=== PATIENT | female | born 1945 | race Caucasian/White ===

== ENCOUNTER → 2017-10-13 | Outpatient (REF) | payer MEDICARE ==
[2017-10-13 11:26] LABS: HEMATOCRIT 39.9 % (36.0-47.0); MEAN CORPUSCULAR HEMOGLOBIN 28.6 pg (27.0-33.0); MEAN CORPUSCULAR HGB CONC 32.6 g/dl (32.0-36.5); MEAN CORPUSCULAR VOLUME 87.7 fl (80.0-96.0); PLATELET COUNT, AUTOMATED 221 10^3/uL (150-450); RED BLOOD COUNT 4.55 10^6/uL (4.00-5.40); WHITE BLOOD COUNT 12.2 10^3/uL (4.0-10.0)
[2017-10-13 12:07] LABS: TOTAL 25(OH) VITAMIN D 12.9 NG/ML (30.0-100.0)
[2017-10-13 12:19] LABS: ALBUMIN 3.2 GM/DL (3.2-5.2); ALBUMIN/GLOBULIN RATIO 0.86 (1.00-1.93); ALKALINE PHOSPHATASE 134 U/L (45-117); ALT/SGPT 18 U/L (12-78); ANION GAP 8 MEQ/L (8-16); AST/SGOT 11 U/L (7-37); BILIRUBIN,TOTAL 0.6 MG/DL (0.2-1.0); BLOOD UREA NITROGEN 16 MG/DL (7-18); CALCIUM LEVEL 9.5 MG/DL (8.8-10.2); CARBON DIOXIDE LEVEL 29 MEQ/L (21-32); CHLORIDE LEVEL 106 MEQ/L (98-107); CHOLESTEROL LEVEL 309 MG/DL (<200); CHOLESTEROL RISK RATIO 6.437 (<5); CREATININE FOR GFR 0.79 MG/DL (0.55-1.02); GLOMERULAR FILTRATION RATE > 60.0 (>39); GLUCOSE, FASTING 154 MG/DL (83-110); HDL CHOLESTEROL 48 MG/DL (>40); LDL CHOLESTEROL 222.2 MG/DL (<100); NON-HDL-C 261 MG/DL; POTASSIUM SERUM 4.2 MEQ/L (3.5-5.1); SODIUM LEVEL 143 MEQ/L (136-145); TOTAL PROTEIN 6.9 GM/DL (6.4-8.2); TRIGLYCERIDES LEVEL 194 MG/DL (<150)
[2017-10-13 12:37] LABS: ESTIMATED AVERAGE GLUCOSE 154 MG/DL (60-110)
[2017-10-13 12:54] LABS: MAU/CREAT RATIO 3821.9 MCG/MG (0.0-30.0)
== END ==
LOC: M SFHCLERA 09:57
DX: I10 Essential (primary) hypertension (principal); E11.65 Type 2 diabetes mellitus with hyperglycemia; E78.2 Mixed hyperlipidemia; E55.9 Vitamin D deficiency, unspecified; Z23 Encounter for immunization
CPT/HCPCS: 80053

== ENCOUNTER → 2018-01-28 | Outpatient (REF) | payer MEDICARE | LOC: M LAB REF 15:31 | DX: D23.71 Other benign neoplasm of skin of right lower limb, including hip (principal); I10 Essential (primary) hypertension; E11.65 Type 2 diabetes mellitus with hyperglycemia; E78.2 Mixed hyperlipidemia; E55.9 Vitamin D deficiency, unspecified; M10.9 Gout, unspecified; Z51.81 Encounter for therapeutic drug level monitoring; Z79.899 Other long term (current) drug therapy | CPT/HCPCS: 84550; 88304 ==

== ENCOUNTER → 2018-01-28 | Outpatient (REF) | payer MEDICARE ==
[2018-01-28 12:48] LABS: ESTIMATED AVERAGE GLUCOSE 148 MG/DL (60-110); HEMOGLOBIN A1c 6.8 %
[2018-01-28 12:50] LABS: TOTAL 25(OH) VITAMIN D 29.1 NG/ML (30.0-100.0)
[2018-01-28 13:00] LABS: ALBUMIN 3.4 GM/DL (3.2-5.2); ALBUMIN/GLOBULIN RATIO 0.92 (1.00-1.93); ALKALINE PHOSPHATASE 109 U/L (45-117); ALT/SGPT 23 U/L (12-78); ANION GAP 8 MEQ/L (8-16); AST/SGOT 18 U/L (7-37); BILIRUBIN,TOTAL 0.3 MG/DL (0.2-1.0); BLOOD UREA NITROGEN 15 MG/DL (7-18); CALCIUM LEVEL 9.1 MG/DL (8.8-10.2); CARBON DIOXIDE LEVEL 30 MEQ/L (21-32); CHLORIDE LEVEL 106 MEQ/L (98-107); CHOLESTEROL LEVEL 284 MG/DL (<200); CREATININE FOR GFR 0.84 MG/DL (0.55-1.30); GLOMERULAR FILTRATION RATE > 60.0 (>39); GLUCOSE, FASTING 96 MG/DL (70-100); HDL CHOLESTEROL 40 MG/DL (>40); LDL CHOLESTEROL 197.8 MG/DL (<100); NON-HDL-C 244 MG/DL; POTASSIUM SERUM 3.9 MEQ/L (3.5-5.1); SODIUM LEVEL 144 MEQ/L (136-145); TOTAL PROTEIN 7.1 GM/DL (6.4-8.2); TRIGLYCERIDES LEVEL 231 MG/DL (<150); URIC ACID 6.4 MG/DL (2.6-6.0)
== END ==
LOC: M SFHCLERA 09:00
DX: I10 Essential (primary) hypertension (principal); E11.65 Type 2 diabetes mellitus with hyperglycemia; E78.2 Mixed hyperlipidemia; E55.9 Vitamin D deficiency, unspecified; M10.9 Gout, unspecified; Z79.899 Other long term (current) drug therapy
CPT/HCPCS: 84550

== ENCOUNTER 2018-01-29 02:31 | Emergency (ER) | payer MEDICARE ==
[2018-01-29] MEDS: SILVER NITRATE APPLICATOR TOP (04:30)
[2018-01-29] MEDS: LIDOCAINE W/EPINEPHRINE 1% 20ML VIAL SC (04:30)
== END 2018-01-29 05:06 | disposition home or self-care (01) ==
LOC: M ED 02:31
DX: L76.22 Postprocedural hemorrhage of skin and subcutaneous tissue following other procedure (principal); I10 Essential (primary) hypertension; F33.9 Major depressive disorder, recurrent, unspecified; Z79.82 Long term (current) use of aspirin; Z79.84 Long term (current) use of oral hypoglycemic drugs
CPT/HCPCS: 12001

== ENCOUNTER 2018-03-31 09:57 | Emergency (ER) | payer MEDICARE ==
[2018-03-31 10:51] LABS: AMORPHOUS SEDIMENT RFX SMALL (NEGATIVE); KETONE, URINE AUTO RFX NEGATIVE (NEGATIVE); LEUKOCYTE ESTERASE UR AUTO RFX NEGATIVE (NEGATIVE); MUCUS, URINE RFX SMALL (NEGATIVE); NITRITE, URINE AUTO RFX POSITIVE (NEGATIVE); RBC, URINE AUTO RFX 3 /HPF (0-3); SPECIFIC GRAVITY UR AUTO RFX 1.024 (1.002-1.035); SQUAM EPITHELIAL CELL UR AURFX 2 /HPF (0-6); WBC, URINE AUTO RFX 34 /HPF (0-3)
[2018-03-31] MEDS: CIPROFLOXACIN 500 MG TAB PO (11:28)
[2018-03-31] MEDS: PHENAZOPYRIDINE 100 MG TAB PO (11:28)
[2018-03-31] MEDS: ACETAMINOPHEN 325 MG TAB PO (11:28)
[2018-03-31 11:38] LABS: BASO % 0.3 % (0.0-1.0); EOS # 0.2 10^3/uL (0.0-0.50); EOS % 1.5 % (0.0-3.0); HEMATOCRIT 38.5 % (36.0-47.0); HEMOGLOBIN 12.8 g/dl (12.0-15.5); IMMATURE GRANULOCYTE % 0.7 % (0-3.0); LYMPH # 2.8 10^3/uL (1.5-4.5); LYMPH % 25.4 % (24.0-44.0); MEAN CORPUSCULAR HEMOGLOBIN 28.7 pg (27.0-33.0); MEAN CORPUSCULAR HGB CONC 33.2 g/dl (32.0-36.5); MEAN CORPUSCULAR VOLUME 86.3 fl (80.0-96.0); MONO # 0.6 10^3/uL (0.0-0.8); MONO % 5.8 % (0.0-5.0); NEUTROPHILS # 7.3 10^3/uL (1.8-7.7); NEUTROPHILS % 66.3 % (36.0-66.0); PLATELET COUNT, AUTOMATED 223 10^3/uL (150-450); RED BLOOD COUNT 4.46 10^6/uL (4.00-5.40); RED CELL DISTRIBUTION WIDTH 14.5 % (11.5-14.5)
[2018-03-31 12:03] LABS: ANION GAP 8 MEQ/L (8-16); BLOOD UREA NITROGEN 19 MG/DL (7-18); CALCIUM LEVEL 9.2 MG/DL (8.8-10.2); CARBON DIOXIDE LEVEL 27 MEQ/L (21-32); CHLORIDE LEVEL 108 MEQ/L (98-107); CREATININE FOR GFR 0.89 MG/DL (0.55-1.30); GLOMERULAR FILTRATION RATE > 60.0 (>39); GLUCOSE, FASTING 147 MG/DL (70-100); SODIUM LEVEL 143 MEQ/L (136-145)
== END 2018-03-31 12:44 | disposition home or self-care (01) ==
LOC: M ED 09:57
DX: N30.00 Acute cystitis without hematuria (principal); N10 Acute pyelonephritis; I25.10 Atherosclerotic heart disease of native coronary artery without angina pectoris; I11.9 Hypertensive heart disease without heart failure; I25.2 Old myocardial infarction; E78.9 Disorder of lipoprotein metabolism, unspecified; E11.9 Type 2 diabetes mellitus without complications; Z95.5 Presence of coronary angioplasty implant and graft; Z95.1 Presence of aortocoronary bypass graft; Z79.899 Other long term (current) drug therapy; Z79.84 Long term (current) use of oral hypoglycemic drugs; Z79.82 Long term (current) use of aspirin
CPT/HCPCS: 74176

== ENCOUNTER 2018-04-02 07:31 | Emergency (ER) | payer MEDICARE | END 2018-04-02 08:56 | disposition home or self-care (01) | LOC: M ED 07:31 | DX: I10 Essential (primary) hypertension (principal); N39.0 Urinary tract infection, site not specified; K59.00 Constipation, unspecified; E11.9 Type 2 diabetes mellitus without complications; F33.9 Major depressive disorder, recurrent, unspecified | CPT/HCPCS: 99283 ==

== ENCOUNTER 2018-05-22 09:24 | Emergency (ER) | payer MEDICARE ==
[2018-05-22] MEDS: NS 500 ML IV (10:08)
[2018-05-22] MEDS: KETOROLAC 30 MG/ML VIAL (J1885) IV (10:09)
[2018-05-22] MEDS: GASTROGRAFIN SOLUTION 30ML PO ×2 (10:09→10:10)
[2018-05-22 10:10] LABS: KETONE, URINE AUTO RFX NEGATIVE (NEGATIVE); NITRITE, URINE AUTO RFX NEGATIVE (NEGATIVE); RBC, URINE AUTO RFX 1 /HPF (0-3); SQUAM EPITHELIAL CELL UR AURFX 4 /HPF (0-6)
[2018-05-22 10:11] LABS: BASO % 0.1 % (0.0-1.0); EOS # 0.1 10^3/uL (0.0-0.50); EOS % 0.4 % (0.0-3.0); HEMATOCRIT 36.3 % (36.0-47.0); HEMOGLOBIN 12.1 g/dl (12.0-15.5); IMMATURE GRANULOCYTE % 0.5 % (0-3.0); LYMPH # 1.5 10^3/uL (1.5-4.5); LYMPH % 9.4 % (24.0-44.0); MEAN CORPUSCULAR HEMOGLOBIN 28.5 pg (27.0-33.0); MEAN CORPUSCULAR HGB CONC 33.3 g/dl (32.0-36.5); MEAN CORPUSCULAR VOLUME 85.6 fl (80.0-96.0); MONO % 6.5 % (0.0-5.0); NEUTROPHILS # 13.2 10^3/uL (1.8-7.7); NEUTROPHILS % 83.1 % (36.0-66.0); PLATELET COUNT, AUTOMATED 211 10^3/uL (150-450); RED BLOOD COUNT 4.24 10^6/uL (4.00-5.40); RED CELL DISTRIBUTION WIDTH 14.5 % (11.5-14.5); WHITE BLOOD COUNT 15.9 10^3/uL (4.0-10.0)
[2018-05-22 10:30] LABS: LEUKOCYTE ESTERASE UR AUTO RFX 1+ (NEGATIVE); WBC, URINE AUTO RFX 38 /HPF (0-3)
[2018-05-22 10:46] LABS: LACTIC ACID SEPSIS PROTOCOL 0.7 MMOL/L (0.4-2.0)
[2018-05-22 10:47] LABS: ALBUMIN 3.3 GM/DL (3.2-5.2); ALKALINE PHOSPHATASE 99 U/L (45-117); ALT/SGPT 18 U/L (12-78); ANION GAP 8 MEQ/L (8-16); AST/SGOT 10 U/L (7-37); BILIRUBIN,TOTAL 0.7 MG/DL (0.2-1.0); BLOOD UREA NITROGEN 17 MG/DL (7-18); CALCIUM LEVEL 9.2 MG/DL (8.8-10.2); CARBON DIOXIDE LEVEL 26 MEQ/L (21-32); CHLORIDE LEVEL 106 MEQ/L (98-107); CREATININE FOR GFR 0.94 MG/DL (0.55-1.30); GLOMERULAR FILTRATION RATE > 60.0 (>39); GLUCOSE, FASTING 162 MG/DL (70-100); LIPASE 148 U/L (73-393); POTASSIUM SERUM 3.7 MEQ/L (3.5-5.1); SODIUM LEVEL 140 MEQ/L (136-145); TOTAL PROTEIN 7.4 GM/DL (6.4-8.2)
[2018-05-22] MEDS ORDERED: ISOVUE-370 76% 100ML VIAL (Q9967) As Ordered (11:17)
== END 2018-05-22 12:24 | disposition home or self-care (01) ==
LOC: M ED 09:24
DX: K57.32 Diverticulitis of large intestine without perforation or abscess without bleeding (principal); N39.0 Urinary tract infection, site not specified; E11.9 Type 2 diabetes mellitus without complications; I10 Essential (primary) hypertension; F33.9 Major depressive disorder, recurrent, unspecified; Z87.440 Personal history of urinary (tract) infections; Z95.5 Presence of coronary angioplasty implant and graft; Z90.89 Acquired absence of other organs; Z79.899 Other long term (current) drug therapy; Z79.82 Long term (current) use of aspirin; Z79.84 Long term (current) use of oral hypoglycemic drugs
CPT/HCPCS: Q9963

== ENCOUNTER → 2018-10-14 | Outpatient (CLI) | payer MEDICARE ==
[~2018-10-14] MED LIST: ACET30TAB PO; AMLO5TAB6 PO; ASPI81TA85 PO; CIPR-249 PO; ENAL20TA PO; FLAG500T PO; METF500T4 PO; METO25TA4 PO; MIRA3350 PO; PYRI1TAB5 PO; SERT-155 PO; VITA-112 PO; VITA50005 PO
[2018-10-14 13:40] LABS: BASO % 0.3 % (0.0-1.0); EOS # 0.2 10^3/uL (0.0-0.50); EOS % 1.6 % (0.0-3.0); HEMATOCRIT 38.4 % (36.0-47.0); HEMOGLOBIN 12.4 g/dl (12.0-15.5); LYMPH # 2.8 10^3/uL (1.5-4.5); LYMPH % 26.8 % (24.0-44.0); MEAN CORPUSCULAR HEMOGLOBIN 28.2 pg (27.0-33.0); MEAN CORPUSCULAR HGB CONC 32.3 g/dl (32.0-36.5); MEAN CORPUSCULAR VOLUME 87.5 fl (80.0-96.0); MONO # 0.6 10^3/uL (0.0-0.8); MONO % 5.9 % (0.0-5.0); NEUTROPHILS # 6.8 10^3/uL (1.8-7.7); NEUTROPHILS % 64.9 % (36.0-66.0); PLATELET COUNT, AUTOMATED 181 10^3/uL (150-450); RED BLOOD COUNT 4.39 10^6/uL (4.00-5.40); WHITE BLOOD COUNT 10.4 10^3/uL (4.0-10.0)
[2018-10-14 14:08] LABS: ALBUMIN 3.2 GM/DL (3.2-5.2); BILIRUBIN,TOTAL 0.3 MG/DL (0.2-1.0); CALCIUM LEVEL 8.9 MG/DL (8.8-10.2); CHOLESTEROL RISK RATIO 7.23 (<5); CREATININE FOR GFR 1.01 MG/DL (0.55-1.30); POTASSIUM SERUM 4.2 MEQ/L (3.5-5.1); TOTAL PROTEIN 6.3 GM/DL (6.4-8.2)
[2018-10-14 15:02] LABS: HEMOGLOBIN A1c 7.9 %
== END ==
LOC: M WUC 09:14
PROVIDERS: ATTEND Physician Assistant
DX: E78.2 Mixed hyperlipidemia (principal); I10 Essential (primary) hypertension; E11.65 Type 2 diabetes mellitus with hyperglycemia; E55.9 Vitamin D deficiency, unspecified; Z79.899 Other long term (current) drug therapy

== ENCOUNTER → 2019-02-17 | Outpatient (CLI) | payer MEDICARE ==
[~2019-02-17] MED LIST changes: +ACET-716 PO; -ACET30TAB PO
[2019-02-17 12:45] LABS: HEMATOCRIT 40.2 % (36.0-47.0); HEMOGLOBIN 12.8 g/dl (12.0-15.5); MEAN CORPUSCULAR HEMOGLOBIN 28.6 pg (27.0-33.0); MEAN CORPUSCULAR HGB CONC 31.8 g/dl (32.0-36.5); MEAN CORPUSCULAR VOLUME 89.7 fl (80.0-96.0); PLATELET COUNT, AUTOMATED 231 10^3/uL (150-450); RED BLOOD COUNT 4.48 10^6/uL (4.00-5.40); WHITE BLOOD COUNT 11.1 10^3/uL (4.0-10.0)
[2019-02-17 12:56] LABS: ALBUMIN 3.9 GM/DL (3.2-5.2); BILIRUBIN,TOTAL 0.4 MG/DL (0.2-1.0); CALCIUM LEVEL 10.1 MG/DL (8.8-10.2); CHOLESTEROL RISK RATIO 5.477 (<5); CREATININE FOR GFR 1.15 MG/DL (0.55-1.30); GLOMERULAR FILTRATION RATE 49.1 (>39); POTASSIUM SERUM 4.6 MEQ/L (3.5-5.1); THYROID STIMULATING HORMONE 2.25 uIU/ML (0.358-3.740); TOTAL 25(OH) VITAMIN D 46.6 NG/ML (30.0-100.0); TOTAL PROTEIN 6.9 GM/DL (6.4-8.2); URIC ACID 7.5 MG/DL (2.6-6.0)
[2019-02-17 13:44] LABS: HEMOGLOBIN A1c 6.3 %
[2019-02-17 13:51] LABS: MAU/CREAT RATIO 1769.7 MCG/MG (0.0-30.0)
== END ==
LOC: M WUC 09:27
PROVIDERS: ATTEND Internal Medicine
DX: E78.5 Hyperlipidemia, unspecified (principal); I10 Essential (primary) hypertension; E11.9 Type 2 diabetes mellitus without complications; F33.0 Major depressive disorder, recurrent, mild; M10.9 Gout, unspecified; E55.9 Vitamin D deficiency, unspecified; Z79.899 Other long term (current) drug therapy

== ENCOUNTER → 2019-03-02 | Outpatient (CLI) | payer MEDICARE ==
--- NOTE | 2019-03-02 09:16 | REPMRS ---
Patient History The patient states she has not had a clinical breast exam in over a year. Patient is postmenopausal. Family history of colorectal cancer at age 43 in son. Stereotactic core biopsy of the right breast, April 25, 2008. No Hormone Replacement Therapy 3D TOMOSYNTHESIS WAS PERFORMED. Digital Woman Screen Mammo: March 02, 2019 - Exam #: [id number] Bilateral CC and MLO view(s) were taken. Technologist: Tess Coon, Technologist Prior study comparison: January 29, 2009, right breast digital mammo diagnostic unilateral, performed at [facility]. March 24, 2008, bilateral screening mammogram performed at [facility]. FINDINGS: The breast tissue is heterogeneously dense. This may lower the sensitivity of mammography. There has been no change in the appearance of the mammogram from the prior studies. There is a moderate amount of residual fibroglandular tissue which is fairly symmetric. There is no interval development of dominant mass, areas of architectural distortion, or clustered microcalcification typical of malignancy. Assessment: BI-RADS/ACR category 1 mammogram. Negative Mammogram. Recommendation Routine screening mammogram in 1 year (for women over age 40). This mammogram was interpreted with the aid of an FDA-approved computer-aided dectection system. Electronically Signed By: Yevgeniy Del Rosario MD 03/02/19 0916
== END ==
LOC: M WHC 07:53
PROVIDERS: ATTEND Internal Medicine
DX: Z12.31 Encounter for screening mammogram for malignant neoplasm of breast (principal); Z78.0 Asymptomatic menopausal state; Z80.0 Family history of malignant neoplasm of digestive organs

== ENCOUNTER → 2019-05-23 | Outpatient (CLI) | payer MEDICARE ==
[2019-05-23 13:37] LABS: ALBUMIN 3.7 GM/DL (3.2-5.2); BILIRUBIN,TOTAL 0.4 MG/DL (0.2-1.0); CALCIUM LEVEL 9.8 MG/DL (8.8-10.2); CHOLESTEROL RISK RATIO 5.285 (<5); CREATININE FOR GFR 0.99 MG/DL (0.55-1.30); GLOMERULAR FILTRATION RATE 58.4 (>39); POTASSIUM SERUM 5.3 MEQ/L (3.5-5.1); TOTAL PROTEIN 6.9 GM/DL (6.4-8.2)
[2019-05-23 13:58] LABS: HEMOGLOBIN A1c 6.4 %
== END ==
LOC: M WUC 08:24
PROVIDERS: ATTEND Internal Medicine
DX: E78.5 Hyperlipidemia, unspecified (principal); I10 Essential (primary) hypertension; E11.9 Type 2 diabetes mellitus without complications

== ENCOUNTER → 2019-06-13 | Outpatient (REF) | payer MEDICARE ==
[~2019-06-13] MED LIST changes: +METF-791 PO; -METF500T4 PO
[2019-06-14 14:03] LABS: COMPLEMENT C3 120 MG/DL (90-180); COMPLEMENT C4 27 MG/DL (10-40); TOTAL PROTEIN 6.9 GM/DL (6.4-8.2)
[2019-06-14 14:14] LABS: HEPATITIS B SURFACE ANTIBODY NEGATIVE (POSITIVE)
[2019-06-14 14:18] LABS: URINE TOTAL PROTEIN 210.5 MG/DL (0-12)
[2019-06-14 14:24] LABS: HEPATITIS B SURFACE ANTIGEN NEGATIVE (NEGATIVE)
[2019-06-14 14:52] LABS: HEPATITIS C VIRUS ABY INDEX 0.1 INDEX (<0.8)
[2019-06-14 14:53] LABS: HEPATITIS B CORE ANTIBODY IGM NEGATIVE (NEGATIVE)
[2019-06-15 13:10] LABS: ALBUMIN 4.11 GM/DL (3.29-5.55); ALBUMIN % 59.6 % (55.8-66.1); ALPHA-1-GLOBULIN % 4.6 % (2.9-4.9); ALPHA-1-GLOBULINS 0.32 GM/DL (0.17-0.41); ALPHA-2-GLOBULINS 0.81 GM/DL (0.42-0.99); ALPHA-2-GLOBULINS % 11.7 % (7.1-11.8); BETA-1-GLOBULINS 0.45 GM/DL (0.28-0.60); BETA-1-GLOBULINS % 6.5 % (4.7-7.2); BETA-2-GLOBULINS % 4.3 % (3.2-6.5); GAMMA GLOBULIN % 13.3 % (11.1-18.8); GAMMA GLOBULINS 0.92 GM/DL (0.65-1.58)
[2019-06-15 13:52] LABS: UPEP INTERPRETATION NO M-SPIKE NOTED; URINE VOLUME RANDOM ML
[2019-06-19 14:39] LABS: ANCA-ATYPICAL <1:20 titer (Neg:<1:20); ANTI DOUBLE STRAND-DNA AB 1 IU/mL (0-9); ANTI DS-DNA AB <1:10 titer (.); ANTI-GLOMERULAR BASEMENT MEMB 3 units (0-20); ANTINUCLEAR ANTIBODIES DIRECT Positive (Negative); CYTOPLASMIC NEUTROP AB ANCA-C <1:20 titer (Neg:<1:20); Lyme Disease IgG Ab 18 kDa Ban Absent (.); Lyme Disease IgG Ab 23 kDa Ban Absent (.); Lyme Disease IgG Ab 28 kDa Ban Absent (.); Lyme Disease IgG Ab 30 kDa Ban Absent (.); Lyme Disease IgG Ab 39 kDa Ban Absent (.); Lyme Disease IgG Ab 41 kDa Ban Absent (.); Lyme Disease IgG Ab 45 kDa Ban Absent (.); Lyme Disease IgG Ab 58 kDa Ban Absent (.); Lyme Disease IgG Ab 66 kDa Ban Absent (.); Lyme Disease IgG Ab 93 kDa Ban Absent (.); Lyme Disease IgG West Blot Int Negative (.); Lyme Disease IgG/IgM Antibodie <0.91 ISR (0.00-0.90); Lyme Disease IgM Ab 23 kDa Ban Present (.); Lyme Disease IgM Ab 39 kDa Ban Absent (.); Lyme Disease IgM Ab 41 kDa Ban Absent (.); Lyme Disease IgM Ab Quantitati 0.85 index (0.00-0.79); Lyme Disease IgM West Blot Int Negative (.); PERINUCLEAR AB ANCA-P <1:20 titer (Neg:<1:20); RNP ANTIBODIES 0.2 AI (0.0-0.9); SJOGREN'S ANTI SS-A <0.2 AI (0.0-0.9); SJOGREN'S ANTI SS-B <0.2 AI (0.0-0.9); SMITH ANTIBODIES <0.2 AI (0.0-0.9)
== END ==
LOC: M LAB REF 13:01
PROVIDERS: ATTEND Internal Medicine Nephrology
DX: R80.9 Proteinuria, unspecified (principal)

== ENCOUNTER → 2019-06-20 | Outpatient (REF) | payer MEDICARE ==
[2019-06-20 17:48] LABS: CREATININE 24 HOUR, URINE 734.4 MG/24HR (600-1800)
== END ==
LOC: M LAB REF 17:02
PROVIDERS: ATTEND Internal Medicine Nephrology
DX: R80.9 Proteinuria, unspecified (principal)

== ENCOUNTER → 2019-06-23 | Outpatient (CLI) | payer MEDICARE ==
[~2019-06-23] MED LIST changes: -SERT-155 PO; +SERT50TA29 PO
--- NOTE | 2019-06-27 20:37 | SLEEPCENT ---
DATE OF PROCEDURE: 06/23/2019 ORDERED BY: SUELLEN Hollingsworth Nocturnal polysomnography was performed for evaluation of sleep physiology in this patient with a history of excessive somnolence, snoring and nonrestorative sleep who has comorbidities of hypertension and diabetes. 8 hours and 18 minutes of data were reviewed. There were 437.5 minutes of sleep identified. Sleep latency was short at 15.5 minutes. Rapid eye movement (REM) latency was delayed at 386 minutes. Sleep architecture initially fragmented, improved substantially with application of optimal therapy. Overall sleep efficiency was 88.9%. The patient's electrocardiogram showed a sinus rhythm with an average heart rate of 50 beats per minute. EEG showed normal waveforms for awake and sleep. There were 298 respiratory events identified of 10 seconds in duration or greater for an apnea-hypopnea index of 40.9 Having clearly established the presence of obstructive sleep apnea syndrome early in the study, testing was stopped shortly before midnight for the application of pressure therapy. The patient was fit with a ResMed AirFit F20 full face mask of medium size, 4 cm of water pressure were applied to the circuit and the lights were extinguished. Pressure titration was performed for persistent obstructive events and despite optimal mask fit and minimal air leak, the patient was changed to a bilevel device. Backup rate was added to the pressure delivery device based on what was felt to be central events. On closer inspection, the events were mixed. Persistent obstruction was seen prompting increases in pressure therapy. Best sleep was seen on a bilevel device, inspiratory pressure of 17 over expiratory pressure of 13. Brief obstructions were identified. However, oxygen desaturations were not seen at this point. IMPRESSION: Severe obstructive sleep apnea syndrome (G47.33). Apnea-hypopnea index 40.9. RECOMMENDATIONS: Nightly use of pressure therapy delivered with a bilevel device, inspiratory pressure of 17 over expiratory pressure 13.
== END ==
LOC: M SLEEP 19:42
PROVIDERS: ATTEND Nurse Practitioner Adult Health
DX: G47.33 Obstructive sleep apnea (adult) (pediatric) (principal)

== ENCOUNTER → 2019-08-08 | Outpatient (REF) | payer MEDICARE ==
[2019-08-08 14:42] LABS: CREATININE 24 HOUR, URINE 689.4 MG/24HR (600-1800); CREATININE, URINE 97.1 MG/DL; TOTAL PROTEIN 24 HOUR URINE 644.6 MG/24HR (50-150); URINE TOTAL PROTEIN 90.8 MG/DL (0-12)
== END ==
LOC: M LAB REF 13:46
PROVIDERS: ATTEND Internal Medicine Nephrology
DX: R80.9 Proteinuria, unspecified (principal)

== ENCOUNTER → 2019-08-29 | Outpatient (CLI) | payer MEDICARE ==
[2019-08-29 15:22] LABS: ALBUMIN 3.5 GM/DL (3.2-5.2); BILIRUBIN,TOTAL 0.4 MG/DL (0.2-1.0); CALCIUM LEVEL 8.8 MG/DL (8.8-10.2); CHOLESTEROL RISK RATIO 3.255 (<5); CREATININE FOR GFR 1.03 MG/DL (0.55-1.30); GLOMERULAR FILTRATION RATE 55.6 (>39); POTASSIUM SERUM 4.3 MEQ/L (3.5-5.1); TOTAL PROTEIN 6.4 GM/DL (6.4-8.2); URIC ACID 5.3 MG/DL (2.6-6.0)
[2019-08-29 15:29] LABS: HEMOGLOBIN A1c 6.5 %
[2019-08-31 00:06] LABS: Lyme Disease IgG/IgM Antibodie <0.91 ISR (0.00-0.90); Lyme Disease IgM Ab Quantitati <0.80 index (0.00-0.79)
== END ==
LOC: M WUC 08:49
PROVIDERS: ATTEND Internal Medicine
DX: E78.5 Hyperlipidemia, unspecified (principal); M10.9 Gout, unspecified; E11.9 Type 2 diabetes mellitus without complications; S40.261A Insect bite (nonvenomous) of right shoulder, initial encounter; W18.30XA Fall on same level, unspecified, initial encounter; Y92.009 Unspecified place in unspecified non-institutional (private) residence as the place of occurrence of the external cause

== ENCOUNTER → 2019-12-05 | Outpatient (CLI) | payer MEDICARE ==
[2019-12-05 12:46] LABS: BASO % 0.4 % (0.0-1.0); EOS # 0.2 10^3/uL (0.0-0.5); EOS % 1.6 % (0.0-3.0); HEMOGLOBIN 11.3 g/dl (12.0-15.5); LYMPH # 2.9 10^3/uL (1.5-5.0); LYMPH % 30.8 % (24.0-44.0); MEAN CORPUSCULAR HEMOGLOBIN 28.3 pg (27.0-33.0); MEAN CORPUSCULAR HGB CONC 31.4 g/dl (32.0-36.5); MEAN CORPUSCULAR VOLUME 90.2 fl (80.0-96.0); MONO # 0.5 10^3/uL (0.0-0.8); MONO % 5.7 % (0.0-5.0); NEUTROPHILS # 5.7 10^3/uL (1.5-8.5); NEUTROPHILS % 60.9 % (36.0-66.0); PLATELET COUNT, AUTOMATED 211 10^3/uL (150-450); RED BLOOD COUNT 3.99 10^6/uL (4.00-5.40); WHITE BLOOD COUNT 9.3 10^3/uL (4.0-10.0)
[2019-12-05 12:54] LABS: ALBUMIN 3.5 GM/DL (3.2-5.2); BILIRUBIN,TOTAL 0.3 MG/DL (0.2-1.0); CALCIUM LEVEL 9.1 MG/DL (8.8-10.2); CHOLESTEROL RISK RATIO 4.238 (<5); CREATININE FOR GFR 1.01 MG/DL (0.55-1.30); GLOMERULAR FILTRATION RATE 56.9 (>39); POTASSIUM SERUM 4.5 MEQ/L (3.5-5.1); TOTAL PROTEIN 6.3 GM/DL (6.4-8.2)
[2019-12-05 19:29] LABS: HEMOGLOBIN A1c 6.2 %
== END ==
LOC: M WUC 08:41
PROVIDERS: ATTEND Internal Medicine
DX: E78.5 Hyperlipidemia, unspecified (principal); E11.9 Type 2 diabetes mellitus without complications

== ENCOUNTER → 2020-07-09 | Outpatient (CLI) | payer MEDICARE ==
[~2020-07-09] MED LIST changes: +AMLO1TAB24 PO; -AMLO5TAB6 PO; -ASPI81TA85 PO; +ASPI81TA86 PO; -ENAL20TA PO; +ENAL20TA11 PO; -METF-791 PO; +METF-838 PO
--- NOTE | 2020-07-09 12:51 | REPVR ---
PROCEDURE INFORMATION: Exam: MR Head Without Contrast Exam date and time: 07/09/2020 12:18 PM Age: 75 years old Clinical indication: Cerebral degeneration; Cognitive impairment; Additional info: G31/84 mild cognative impairment TECHNIQUE: Imaging protocol: MR of the head without contrast. COMPARISON: MRI-Brain without Contrast 02/13/2014 7:08 PM FINDINGS: Brain: There is no extra-axial collection or intra-axial mass. Mild diffuse volume loss is within the range of normal for patient age. There are chronic lacunar infarcts within the left polo radiata and left basal ganglia. There are foci of increased T2 and FLAIR hyperintensity within the periventricular and subcortical white matter, nonspecific but typically small-vessel ischemia in this age group. There is no diffusion restriction. Cerebral ventricles: Prominence of the ventricular system is commensurate with volume loss. Bones/joints: Unremarkable. Paranasal sinuses: Normal as visualized. No acute sinusitis. Mastoid air cells: Normal as visualized. No mastoid effusion. Orbits: Unremarkable. Soft tissues: Unremarkable. IMPRESSION: No acute intracranial abnormality. Chronic changes. Electronically signed by: Verna Carrizales On 07/09/2020 12:51:07 PM
[2020-07-09 13:42] LABS: HEMATOCRIT 35.9 % (36.0-47.0); MEAN CORPUSCULAR HEMOGLOBIN 26.2 pg (27.0-33.0); MEAN CORPUSCULAR HGB CONC 30.6 g/dl (32.0-36.5); MEAN CORPUSCULAR VOLUME 85.5 fl (80.0-96.0); PLATELET COUNT, AUTOMATED 254 10^3/uL (150-450); WHITE BLOOD COUNT 11.1 10^3/uL (4.0-10.0)
[2020-07-09 14:23] LABS: VITAMIN B12 LEVEL 325 PG/ML (247-911)
== END ==
LOC: M RAD 10:27
PROVIDERS: ATTEND Nurse Practitioner Family
DX: G31.84 Mild cognitive impairment of uncertain or unknown etiology (principal); Z79.84 Long term (current) use of oral hypoglycemic drugs

== ENCOUNTER 2020-08-15 13:35 | Inpatient (IN) | payer MEDICARE ==
[~2020-08-15] VITALS: Ht 157.5 cm; Wt 75.6 kg
[2020-08-15] MEDS ORDERED: METOPROLOL TART 25 MG TABLET PO ONE (14:00)
[2020-08-15] MEDS ORDERED: amLODIPine 5 MG TAB PO ONE (14:00)
[2020-08-15 14:07] LABS: BASO % 0.5 % (0.0-1.0); EOS # 0.1 10^3/uL (0.0-0.5); EOS % 1.2 % (0.0-3.0); HEMATOCRIT 35.7 % (36.0-47.0); HEMOGLOBIN 11.2 g/dl (12.0-15.5); LYMPH % 23.9 % (24.0-44.0); MEAN CORPUSCULAR HEMOGLOBIN 26.3 pg (27.0-33.0); MEAN CORPUSCULAR HGB CONC 31.4 g/dl (32.0-36.5); MEAN CORPUSCULAR VOLUME 83.8 fl (80.0-96.0); MONO # 0.6 10^3/uL (0.0-0.8); MONO % 6.9 % (0.0-5.0); NEUTROPHILS # 5.6 10^3/uL (1.5-8.5); NEUTROPHILS % 67.3 % (36.0-66.0); PLATELET COUNT, AUTOMATED 196 10^3/uL (150-450); RED BLOOD COUNT 4.26 10^6/uL (4.00-5.40); WHITE BLOOD COUNT 8.3 10^3/uL (4.0-10.0)
--- NOTE | 2020-08-15 14:33 | ECGEPIP ---
[facility] - ED Test Date: 2020-08-15 Pat Name: ASAF RGIER Department: Room: - Gender: Female Clinical Informaticist: CARLOS : 1945 Requested By: LAVELLE Yepez Order Number: [id number] Reading MD: Sharron Carranza Measurements Intervals [place] Rate: 57 P: 41 CT: 188 QRS: -28 QRSD: 91 T: 76 QT: 413 QTc: 404 Interpretive Statements SINUS BRADYCARDIA WITH MARKED SINUS ARRHYTHMIA BORDERLINE LEFT AXIS DEVIATION NONSPECIFIC T-WAVE ABNORMALITY NO PRIOR Electronically Signed on 08-15-2020 14:33:22 EST by Sharron Carranza
[2020-08-15 14:42] LABS: ACETAMINOPHEN LEVEL < 2.0 UG/ML (10.0-30.0); ALBUMIN 3.6 GM/DL (3.2-5.2); ALT/SGPT 12 U/L (12-78); BILIRUBIN,DIRECT 0.1 MG/DL (0.0-0.2); BILIRUBIN,TOTAL 0.4 MG/DL (0.2-1.0); BLOOD UREA NITROGEN 31 MG/DL (7-18); CALCIUM LEVEL 9.5 MG/DL (8.8-10.2); CARBON DIOXIDE LEVEL 27 MEQ/L (21-32); CHLORIDE LEVEL 109 MEQ/L (98-107); CK-MB VALUE MASS < 1.0 NG/ML (<3.6); CPK CREATINE PHOSPHOKINASE 54 U/L (26-192); CREATININE FOR GFR 1.19 MG/DL (0.55-1.30); ETHYL ALCOHOL (ETHANOL) < 0.003 % (0.000-0.010); GLOMERULAR FILTRATION RATE 46.9 (>39); GLUCOSE, FASTING 103 MG/DL (70-100); MB/CK RELATIVE INDEX 1.85 (< OR =4); POTASSIUM SERUM 4.4 MEQ/L (3.5-5.1); SALICYLATE LEVEL < 1.7 MG/DL (5.0-30.0); SODIUM LEVEL 141 MEQ/L (136-145); TOTAL PROTEIN 6.8 GM/DL (6.4-8.2); TROPONIN I < 0.02 NG/ML (< 0.10)
--- NOTE | 2020-08-15 14:47 | REP ---
INDICATION: ALTERED MENTAL STATUS COMPARISON: 01/13/2013. TECHNIQUE: PA/Lateral FINDINGS: Lungs: Clear, no infiltrate. Heart: Normal in size. Mediastinum: Mediastinal silhouette unremarkable. Pleural angles: Unremarkable.. Bones and soft tissues: There are degenerative changes of the spine without compression deformity. There are multiple sternal wires and mediastinal clips present. IMPRESSION: No acute pulmonary disease. <Electronically signed by Yevgeniy Del Rosario > 08/15/20 [id number]
[2020-08-15] MEDS ORDERED: MEMA1TAB3 PO (15:37)
[2020-08-15] MEDS ORDERED: ATOR80TA59 PO (15:37)
[2020-08-15] MEDS ORDERED: ALLO100T PO (15:37)
[2020-08-15] MEDS ORDERED: MAGN400T2 PO (15:37)
[2020-08-15 16:55] LABS: AMPHETAMINES LEVEL URINE NEGATIVE (NEGATIVE); BARBITURATES URINE NEGATIVE (NEGATIVE); BENZODIAZEPINES URINE NEGATIVE (NEGATIVE); CANNABINOIDS URINE POSITIVE (NEGATIVE); COCAINE METABOLITE URINE NEGATIVE (NEGATIVE); METHADONE URINE NEGATIVE (NEGATIVE); OPIATES URINE NEGATIVE (NEGATIVE); PHENCYCLIDINE URINE NEGATIVE (NEGATIVE)
[2020-08-15] MEDS ORDERED: METF500T13 PO (18:36)
[2020-08-15] MEDS ORDERED: ASPI81TA26 PO (18:36)
[2020-08-15] MEDS ORDERED: ACETAMINOPHEN TAB 650MG DOSE (2X325MG) PO PRN (19:30)
[2020-08-15] MEDS ORDERED: MAALOX 30 ML SUSP *UDC PO PRN (19:30)
[2020-08-15] MEDS ORDERED: MOM 30ML SUSPENSION UDC PO PRN (19:30)
--- NOTE | 2020-08-15 19:31 | HPEPDOC ---
[facility] Medical History & Physical Date of Admission Aug 15, 2020 Date of Service: Aug 15, 2020 Attending Physician: HORACIO ZUNIGA MD History and Physical TIME OF SERVICE: 855PM CHIEF COMPLAINT: Confusion HISTORY OF PRESENT ILLNESS: This 75 old female was brought to the ER by police. Apparently she's been running away from her home and has been brought back to her have several times by police. The patient's family members felt that they could no longer take care of her severe called EMS. At the time of my evaluation, the patient thought that she been in the ER for 4 days and should initially come in for evaluation of abdominal pain that has since resolved. She later on admitted to being confused and mixing things up. When asked if she wanted to go back home or be placed in a skilled living facility or halfway she was unable to provide a clear answer. She denied having any medical problems or taking any medications despite a history of multiple medical problems. REVIEW OF SYSTEMS: 12 point review of systems negative except as listed in HPI PAST MEDICAL/ SURGICAL HISTORY: Probable Dementia NIDDM CAD/CABG, status post stent placement Depression Chronic hypertension Cholecystectomy Right knee surgery Left knee surgery Left shoulder surgery SOCIAL HISTORY: She denies smoking, drinking or using recreational drugs, despite having a urine drug screen positive for cannabis FAMILY HISTORY: She thinks that her her sister may have diabetes ALLERGIES: Please see below. HOME MEDICATIONS: Please see below. PHYSICAL EXAMINATION: Vital Signs Date Time Temp Pulse Resp B/P (MAP) Pulse Ox O2 Delivery O2 Flow Rate FiO2 08/15/20 13:43 190/91 (124) 08/15/20 13:46 96.3 59 15 100 Room Air GEN: well-nourished / well developed/ NAD INTEGUMENT: not flushed HEENT: lips acyanotic /mucus membranes moist and pink / sclera anicteric CVS: RRR/NMRG/ radial and dorsalis pedis pulses intact / no lower extremity edema LUNGS: able to speak full sentences without stopping to take a breath / no coughing / lungs are clear to auscultation bilaterally on room air ABDOMEN: Contour (obese) MSK/EXTREMITIES: NCAT / gait normal NEURO: CN 2-12 are grossly intact / speech is not dysarthric PSYCH: alert and oriented to person place / able to understand and follow simple commands LABORATORY DATA: Laboratory Tests 08/15/20 13:56 Immature Granulocyte % (Auto) 0.2, Neutrophils (%) (Auto) 67.3H, Lymphocytes (%) (Auto) 23.9L, Monocytes (%) (Auto) 6.9H, Eosinophils (%) (Auto) 1.2, Basophils (%) (Auto) 0.5, Neutrophils # (Auto) 5.6, Lymphocytes # (Auto) 2.0, Monocytes # (Auto) 0.6, Eosinophils # (Auto) 0.1, Basophils # (Auto) 0.0, Nucleated Red Blood Cells % (auto) 0.0, Anion Gap 5L, Glomerular Filtration Rate 46.9, Calcium Level 9.5, Total Bilirubin 0.4, Direct Bilirubin 0.1, Aspartate Amino Transf (AST/SGOT) 12, Alanine Aminotransferase (ALT/SGPT) 12, Alkaline Phosphatase 123H, Total Creatine Kinase 54, Creatine Kinase MB < 1.0, Creatine Kinase MB Relative Index 1.85, Troponin I < 0.02, Total Protein 6.8, Albumin 3.6, Albumin/Globulin Ratio 1.1L, Thyroid Stimulating Hormone (TSH) 2.110, Salicylates Level < 1.7L, Acetaminophen Level < 2.0L, Ethyl Alcohol Level < 0.003 08/15/20 15:52: Urine Color YELLOW, Urine Appearance HAZY, Urine pH 5.0, Urine Specific [place] 1.019, Urine Protein 2+H, Urine Glucose (UA) NEGATIVE, Urine Ketones NEGATIVE, Urine Blood NEGATIVE, Urine Nitrite NEGATIVE, Urine Bilirubin NEGATIVE, Urine Urobilinogen 0.2, Urine Leukocyte Esterase NEGATIVE, Urine WBC (Auto) 4H, Urine RBC (Auto) 4H, Urine Hyaline Casts (Auto) 3, Urine Bacteria (Auto) NEGATIVE, Urine Squamous Epithelial Cells 0, Urine Sperm (Auto) , Urine Opiates Screen NEGATIVE, Urine Methadone Screen NEGATIVE, Urine Barbiturates Screen NEGATIVE, Urine Phencyclidine Screen NEGATIVE, Urine Amphetamines Screen NEGATIVE, Urine Benzodiazepines Screen NEGATIVE, Urine Cocaine Metabolite Screen NEGATIVE, Urine Cannabinoids Screen POSITIVE 08/15/20 18:46: IMAGING: Chest x-ray "No acute pulmonary disease" ASSESSMENT: Ms. England is an 79-year-old with a history of probable dementia, NIDDM, CAD, hypertension, depression, and multiple surgeries, who was brought to the ospital for evaluation of confusion; her workup so far is unremarkable, she may need placement placement. PLAN: 1. Possible Dementia Plan: Admit to medical floor, follow-up TSH, B12, and B1 / c/w memantine / She can follow-up with her PCP for the MOCA & an MRI of the brain on an outpatient basis 2. Bradycardia Likely 2/2 CCB and BB EKG showed sinus bradycardia Plan: telemetry / monitor for symptoms 3. Uncontrolled HTN Plan: Metoprolol, enalapril, amlodipine 4. NIDDM Plan: diabetic diet / f/u accuchecks & A1C / hypoglycemia protocol / sliding scale insulin / hold oral anti-glycemics 5. CAD/CABG, status post stent placement Plan: Aspirin, atorvastatin, metoprolol 6. Mild NN Anemia Plan: f/u CBC 7. Class 1 Obesity BMI 30.5 complicates care DVT PROPHYLAXIS: SCDs DISPOSITION: possible placement after more than 2 midnight's stay Home Medications Scheduled Allopurinol (Allopurinol) 100 Mg Tablet, 100 MG PO DAILY Amlodipine Besylate (Amlodipine Besylate) 5 Mg Tab, 5 MG PO DAILY Aspirin (Aspirin EC) 81 Mg Tablet.dr, 81 MG PO DAILY Atorvastatin Calcium (Atorvastatin Calcium) 80 Mg Tablet, 80 MG PO QHS Enalapril Maleate (Enalapril Maleate) 20 Mg Tab, 20 MG PO BID Magnesium Oxide (Magnesium Oxide) 400 Mg Tablet, 400 MG PO DAILY Memantine HCl (Memantine HCl) 5 Mg Tablet, 5 MG PO BID Metformin HCl (Metformin HCl) 500 Mg Tablet, 500 MG PO DAILY Metoprolol Tartrate (Metoprolol Tartrate) 25 Mg Tab, 25 MG PO BID Allergies Coded Allergies: No Known Allergies (Verified , 07/22/07) A-FIB/CHADSVASC A-FIB History Current/History of A-Fib/PAF?: No Current PO Anticoag Therapy: No HORACIO ZUNIGA MD Aug 15, 2020 19:31
[2020-08-15 19:50] LABS: HEMATOCRIT 35.7 % (36.0-47.0)
[2020-08-15 20:11] LABS: VITAMIN B12 LEVEL 250 PG/ML (247-911)
[2020-08-15] MEDS: MEMANTINE 5MG TABLET (NAMENDA) PO SCH (21:00)
[2020-08-15] MEDS ORDERED: ATORVASTATIN 20 MG TAB PO SCH (21:00)
[2020-08-15] MEDS: ENALAPRIL MALEATE 10 MG TAB PO SCH (21:00)
[2020-08-15 21:25] VITALS: BP 161/78
[2020-08-16 06:00] VITALS: BP 169/80
[2020-08-16] MEDS ORDERED: allopurinoL 100 MG TAB PO SCH (09:00)
[2020-08-16] MEDS ORDERED: amLODIPine 5 MG TAB PO SCH (09:00)
[2020-08-16] MEDS ORDERED: ASPIRIN 81 MG ENTERIC TAB PO SCH (09:00)
[2020-08-16] MEDS ORDERED: MAGNESIUM OXIDE 400 MG TAB (MAG-OX) PO SCH (09:00)
[2020-08-16] MEDS ORDERED: METOPROLOL TART 25 MG TABLET PO SCH (09:00)
[2020-08-16] MEDS: MEMANTINE 5MG TABLET (NAMENDA) PO SCH (09:21)
[2020-08-16 09:23] VITALS: BP 128/60
[2020-08-16] MEDS: ENALAPRIL MALEATE 10 MG TAB PO SCH (09:24)
--- NOTE | 2020-08-16 10:20 | IPNPDOC ---
Text Note Date of Service The patient was seen on 08/16/20. NOTE SUBJECTIVE: Patient was seen and examined today at bedside. She states she is feeling well and has no complaints. She cannot recall what brought her into the hospital or how long she has been here. She tells me she lives at home with family but cannot tell me who specifically she lives with. She does not recall leaving her home for any reason. OBJECTIVE: VITAL SIGNS: See below GENERAL: Alert, comfortable, in no acute distress HEENT: Normocephalic, atraumatic, PERRLA, EOMI, moist mucous membranes NECK: Supple, trachea midline, no lymphadenopathy, no JVD CARDIOVASCULAR: Regular rate and rhythm, normal S1 and S2. No murmurs, rubs, or gallops RESPIRATORY: Clear to auscultation bilaterally with equal air entry bilaterally. No wheezing, rhonchi, or rales. ABDOMEN: Soft, nontender, nondistended, bowel sounds present, no masses or h epatosplenomegaly appreciated EXTREMITIES: No cyanosis or edema. Pulses 2+/4 in bilateral upper and lower extremities SKIN: [place], warm, dry NEUROLOGIC: Alert and oriented x2 to person and place, not to time or situation. Cranial nerves 2-12 grossly intact. No focal deficits appreciated PSYCHIATRIC: Mood and affect appropriate ASSESSMENT/PLAN: # Suspected dementia - Will speak to patient's daughter today regarding her behavior at home - Patient will likely need placement # Sinus bradycardia, stable, asymptomatic - likely related to medications for blood pressure including beta randolph - avoid increasing beta block dosage # Hypertension - Continue home metoprolol, enalapril, and amlodipine # Diabetes mellitus, - hold home oral medications. sliding scale insulin while inpatient - consistent carb diet, hypoglycemic protocol # CAD s/p stent - continue aspirin, statin, metoprolol # Normocytic anemia - stable H/H, asymptomatic # Obesity - BMI 30.5, complicates care DVT prophylaxis: Teds and SCDs, ambulatory Disposition: pending placement Liyah KAMARA, I+O Lyiah KAMARA, I+O Laboratory Tests 08/15/20 13:56 08/15/20 13:57 Vital Signs Date Time Temp Pulse Resp B/P (MAP) Pulse Ox O2 Delivery O2 Flow Rate FiO2 08/16/20 06:00 97.0 56 18 169/80 (109) 98 Room Air I&O- Last 24 Hours up to 6 AM 08/16/20 06:00 Intake Total 350 ml Output Total 625 ml Balance -275 ml GME ATTESTATION GME ATTESTATION My faculty preceptor for this patient encounter was physically present during the encounter and was fully available. All aspects of the patient interview, examination, medical decision making process, and medical care plan development were reviewed and approved by the faculty preceptor. The faculty preceptor is aware and concurs with the plan as stated in the body of this note and will attest to such by his/her cosignature. ATTENDING NOTE I, Radha Reagan, have independently examined this patient and performed my own physical exam, as well as reviewed the documentation and edited where necessary. I have discussed in detail with the resident / student the findings and plan of treatment as documented by the resident / student and edited their note. I agree with their findings and treatment plan and have edited their documentation. I will continue to follow the patient during this hospital stay. GEOVANNA FREEMAN D.O. Aug 16, 2020 10:20 RADHA REAGAN MD Aug 16, 2020 18:52
[2020-08-16 14:00] VITALS: BP 122/76
--- NOTE | 2020-08-16 18:41 | DS.PDOC ---
Discharge Summary General Date of Admission Aug 15, 2020 at 19:25 Date of Discharge 08/16/2020 Attending Physician: RADHA DEL VALLE MD Discharge Summary PROCEDURES PERFORMED DURING STAY: None. ADMITTING DIAGNOSES: 1. Suspected dementia 2. Sinus bradycardia 3. Hypertension 4. Diabetes mellitus 5. CAD s/p stent 6. Normocytic anemia 7. Obesity DISCHARGE DIAGNOSES: 1. Dementia 2. Sinus bradycardia 3. Hypertension 4. Diabetes mellitus 5. CAD s/p stent 6. Normocytic anemia 7. Obesity COMPLICATIONS/CHIEF COMPLAINT: Dementia. HISTORY OF PRESENT ILLNESS: 75 old female was brought to the ER by police. Apparently she's been running away from her home and has been brought back to her have several times by police. The patient's family members felt that they could no longer take care of her severe called EMS. At the time of my evaluation, the patient thought that she been in the ER for 4 days and should initially come in for evaluation of abdominal pain that has since resolved. She later on admitted to being confused and mixing things up. When asked if she wanted to go back home or be placed in a skilled living facility or skilled nursing she was unable to provide a clear answer. She denied having any medical problems or taking any medications despite a history of multiple medical problems. HOSPITAL COURSE: Patient was admitted to the hospital and evaluated for medical causes of worsening dementia. She had normal B12, B1, folate levels. TSH was within normal limits. She was maintained on memantine which is a home medication. She was also found to be in sinus bradycardia which remained asymptomatic throughout her admission. She presented with elevated blood pressu res which improved with her home oral antihypertensives. I spoke with her daughter, Herlinda, who explained that her mother has been more confused and aggressive at home. She would really like to take her mom home and understands that she may require more care due to the progression of her dementia. She spoke with her brother who is going to move up to the area next week to help take care of their mom through the holiday season. Herlinda states they have already been looking at placement for their mother moving forward, but feel they can continue to take care of her at home for the time being. The patient was found to be stable and safe for discharge home with her daughter Herlinda, who is her health care proxy. DISCHARGE MEDICATIONS: Please see below. ALLERGIES: Please see below. PHYSICAL EXAMINATION ON DISCHARGE: VITAL SIGNS: Please see below. GENERAL: Alert, comfortable, in no acute distress HEENT: Normocephalic, atraumatic, PERRLA, EOMI, moist mucous membranes NECK: Supple, trachea midline, no lymphadenopathy, no JVD CARDIOVASCULAR: Regular rate and rhythm, normal S1 and S2. No murmurs, rubs, or gallops RESPIRATORY: Clear to auscultation bilaterally with equal air entry bilaterally. No wheezing, rhonchi, or rales. ABDOMEN: Soft, nontender, nondistended, bowel sounds present, no masses or hepatosplenomegaly appreciated EXTREMITIES: No cyanosis or edema. Pulses 2+/4 in bilateral upper and lower extremities SKIN: [place], warm, dry NEUROLOGIC: Alert and oriented x2 to person and place, not to time or situation. Cranial nerves 2-12 grossly intact. No focal deficits appreciated PSYCHIATRIC: Mood and affect appropriate LABORATORY DATA: Please see below. IMAGING: - CXR: No acute pulmonary disease. PROGNOSIS: Fair ACTIVITY: As tolerated. DIET: Diabetic diet DISCHARGE PLAN/DISPOSITION: Home with family support DISCHARGE INSTRUCTIONS: 1. Follow up with PCP in 7-10 days ITEMS TO FOLLOWUP ON ON OUTPATIENT: 1. Progression of dementia DISCHARGE CONDITION: Stable. TIME SPENT ON DISCHARGE: Greater than 35 minutes. Vital Signs/I&Os Vital Signs Date Time Temp Pulse Resp B/P (MAP) Pulse Ox O2 Delivery O2 Flow Rate FiO2 08/16/20 14:00 98.1 56 17 122/76 (91) 99 Room Air I&O- Last 24 Hours up to 6 AM 08/16/20 06:00 Intake Total 350 ml Output Total 625 ml Balance -275 ml Laboratory Data Labs 24H Laboratory Tests 2 08/15/20 18:46: Coronavirus (COVID-19)(PCR) NEGATIVE 08/16/20 11:24: Bedside Glucose (Misc Panel) 96 08/16/20 16:40: Bedside Glucose (Misc Panel) 109 FSBS Laboratory Tests Test 08/16/20 11:24 08/16/20 16:40 Range/Units Bedside Glucose (Misc Panel) 96 109 83-110 MG/DL Discharge Medications Scheduled Allopurinol (Allopurinol) 100 Mg Tablet, 100 MG PO DAILY, (Reported) Amlodipine Besylate (Amlodipine Besylate) 5 Mg Tab, 5 MG PO DAILY, (Reported) Aspirin (Aspirin EC) 81 Mg Tablet.dr, 81 MG PO DAILY, (Reported) Atorvastatin Calcium (Atorvastatin Calcium) 80 Mg Tablet, 80 MG PO QHS, (Reported) Enalapril Maleate (Enalapril Maleate) 20 Mg Tab, 20 MG PO BID, (Reported) Magnesium Oxide (Magnesium Oxide) 400 Mg Tablet, 400 MG PO DAILY, (Reported) Memantine HCl (Memantine HCl) 5 Mg Tablet, 5 MG PO BID, (Reported) Metformin HCl (Metformin HCl) 500 Mg Tablet, 500 MG PO DAILY, (Reported) Metoprolol Tartrate (Metoprolol Tartrate) 25 Mg Tab, 25 MG PO BID, (Reported) Allergies Coded Allergies: No Known Allergies (Verified , 07/22/07) GME ATTESTATION GME ATTESTATION My faculty preceptor for this patient encounter was physically present during the encounter and was fully available. All aspects of the patient interview, examination, medical decision making process, and medical care plan development were reviewed and approved by the faculty preceptor. The faculty preceptor is aware and concurs with the plan as stated in the body of this note and will attest to such by his/her cosignature. ATTENDING NOTE I, Radha Del Valle, have independently examined this patient and performed my own physical exam, as well as reviewed the documentation and edited where necessary. I have discussed in detail with the resident / student the findings and plan of treatment as documented by the resident / student and edited their note. I agree with their findings and treatment plan and have edited their documentation. I will continue to follow the patient during this hospital stay. Time spent on discharge 35 minutes GEOVANNA FREEMAN D.O. Aug 16, 2020 18:41 RADHA DEL VALLE MD Aug 16, 2020 18:54
== END 2020-08-16 19:08 | disposition home or self-care (01) | DRG 884 ==
LOC: M ED 13:35 → EDBD 13:35 → M ED INP 19:25 → ENRESERV 20:30 → M MSPAV 21:29
PROVIDERS: ADMIT Internal Medicine; ATTEND Internal Medicine
DX: F03.91 Unspecified dementia, unspecified severity, with behavioral disturbance (principal); E11.9 Type 2 diabetes mellitus without complications; I25.10 Atherosclerotic heart disease of native coronary artery without angina pectoris; F32.9 Major depressive disorder, single episode, unspecified; I10 Essential (primary) hypertension; E66.9 Obesity, unspecified; Z95.5 Presence of coronary angioplasty implant and graft; Z90.49 Acquired absence of other specified parts of digestive tract; R00.1 Bradycardia, unspecified; D64.9 Anemia, unspecified; Z68.30 Body mass index [BMI] 30.0-30.9, adult; Z79.82 Long term (current) use of aspirin; Z79.84 Long term (current) use of oral hypoglycemic drugs; Z79.899 Other long term (current) drug therapy; Z20.828 Contact with and (suspected) exposure to other viral communicable diseases

== ENCOUNTER 2021-05-01 14:09 | Emergency (ER) | payer MEDICARE, MEDICAID ==
[~2021-05-01] VITALS: Ht 154.9 cm; Wt 83.5 kg
[~2021-05-01 14:09] MED LIST changes: +ALLO100T PO; +ASPI81TA26 PO; +ATOR80TA59 PO; +MAGN400T2 PO; +MEMA1TAB3 PO; +METF500T13 PO
[2021-05-01 15:40] LABS: BASO % 0.4 % (0.0-1.0); EOS # 0.1 10^3/uL (0.0-0.5); EOS % 1.3 % (0.0-3.0); HEMOGLOBIN 12.5 g/dl (12.0-15.5); LYMPH # 2.6 10^3/uL (1.5-5.0); LYMPH % 25.4 % (24.0-44.0); MEAN CORPUSCULAR HEMOGLOBIN 27.8 pg (27.0-33.0); MEAN CORPUSCULAR HGB CONC 32.1 g/dl (32.0-36.5); MEAN CORPUSCULAR VOLUME 86.9 fl (80.0-96.0); MONO # 0.7 10^3/uL (0.0-0.8); MONO % 7.2 % (2.0-8.0); NEUTROPHILS # 6.6 10^3/uL (1.5-8.5); NEUTROPHILS % 65.3 % (36.0-66.0); PLATELET COUNT, AUTOMATED 213 10^3/uL (150-450); RED BLOOD COUNT 4.49 10^6/uL (4.00-5.40); WHITE BLOOD COUNT 10.1 10^3/uL (4.0-10.0)
[2021-05-01] MEDS ORDERED: ISOVUE-370 76% 100ML VIAL As Ordered ONE (16:09)
[2021-05-01 16:10] LABS: ERYTHROCYTE SEDIMENTATION RATE 49 mm/hr (0-30)
--- NOTE | 2021-05-01 16:58 | REPVR ---
PROCEDURE INFORMATION: Exam: CT Angiography Neck With Contrast Exam date and time: 05/01/2021 3:27 PM Age: 75 years old Clinical indication: Pain; Headache; Additional info: Right sided headache/neck pain; Right arm pain; R/O stroke TECHNIQUE: Imaging protocol: Computed tomography angiography of the neck with contrast. 3D rendering (Not supervised by radiologist): MIP and/or 3D reconstructed images were created by the technologist. Radiation optimization: All CT scans at this facility use at least one of these dose optimization techniques: automated exposure control; mA and/or kV adjustment per patient size (includes targeted exams where dose is matched to clinical indication); or iterative reconstruction. Contrast material: ISOVUE 370; Contrast volume: 100 ml; Contrast route: INTRAVENOUS (IV); COMPARISON: MRI-Brain without Contrast 07/09/2020 11:41 AM FINDINGS: Right common carotid artery: No stenosis. No dissection or occlusion. Right internal carotid artery: There is calcified plaque in the proximal right internal carotid artery without stenosis. No dissection. Right external carotid artery: No occlusion or stenosis of the origin. Left common carotid artery: No stenosis. No dissection or occlusion. Left internal carotid artery: There is calcified plaque in the proximal left internal carotid artery without stenosis. No dissection. Left external carotid artery: No occlusion or stenosis of the origin. Right vertebral artery: No stenosis. No dissection or occlusion. Left vertebral artery: No stenosis. No dissection or occlusion. Soft tissues: Normal. No significant soft tissue swelling. Bones/joints: No acute fracture. Cervical spine separately reported IMPRESSION: No carotid or vertebral artery stenosis or dissection. REFERENCES: NASCET CRITERIA. The degree of internal carotid artery stenosis is based on NASCET criteria. Normal is no stenosis. Mild is less than 50% stenosis. Moderate is 50-69% stenosis. Severe is 70% to 99% stenosis. Total occlusion is no detectable patent lumen. Electronically signed by: Arie Villafuerte On 05/01/2021 16:58:22 PM
--- NOTE | 2021-05-01 16:59 | REPVR ---
PROCEDURE INFORMATION: Exam: CT Angiography Head With Contrast, Arteriography Exam date and time: 05/01/2021 3:27 PM Age: 75 years old Clinical indication: Pain; Headache; Additional info: Right sided headache/neck pain; Right arm pain; R/O stroke TECHNIQUE: Imaging protocol: Computed tomography angiography of the head with contrast. Exam focused on the arteries. 3D rendering (Not supervised by radiologist): MIP and/or 3D reconstructed images were created by the technologist. Radiation optimization: All CT scans at this facility use at least one of these dose optimization techniques: automated exposure control; mA and/or kV adjustment per patient size (includes targeted exams where dose is matched to clinical indication); or iterative reconstruction. Contrast material: ISOVUE 370; Contrast volume: 100 ml; Contrast route: INTRAVENOUS (IV); COMPARISON: MRI-Brain without Contrast 07/09/2020 11:41 AM , head CT 05/01/2021 FINDINGS: Limitations: Axial images are 2 mm. No thin slice axial images. ANTERIOR CIRCULATION: Right internal carotid artery: Unremarkable. Intracranial segment is patent with no significant stenosis. No aneurysm. Right middle cerebral artery: Unremarkable. No occlusion or significant stenosis. No aneurysm. Right anterior cerebral artery: There is a dominant A1 segment of the right anterior cerebral artery. No stenosis. No aneurysm. Left internal carotid artery: Unremarkable. Intracranial segment is patent with no significant stenosis. No aneurysm. Left middle cerebral artery: Unremarkable. No occlusion or significant stenosis. No aneurysm. Left anterior cerebral artery: There is a hypoplastic A1 segment of the left anterior cerebral artery. No stenosis. No aneurysm. POSTERIOR CIRCULATION: Right vertebral artery: The right vertebral artery is markedly dominant. No stenosis. No aneurysm. Left vertebral artery: The left vertebral artery is hypoplastic. No stenosis. No aneurysm. Basilar artery: As best seen on series 604, image 21 there is a wide necked aneurysm of the basilar tip extending 3 mm beyond the origins of the posterior cerebral arteries. Right posterior cerebral artery: Unremarkable. No occlusion or significant stenosis. No aneurysm. Left posterior cerebral artery: Unremarkable. No occlusion or significant stenosis. No aneurysm. IMPRESSION: 1. No intracranial stenosis or occlusion. 2. 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 Electronically signed by: Arie Villafuerte On 05/01/2021 16:58:53 PM
--- NOTE | 2021-05-01 17:14 | REPVR ---
PROCEDURE INFORMATION: Exam: CT Head Without Contrast Exam date and time: 05/01/2021 3:27 PM Age: 75 years old Clinical indication: Pain; Headache; Additional info: Right sided headache/neck pain; Right arm pain; R/O stroke TECHNIQUE: Imaging protocol: Computed tomography of the head without contrast. Radiation optimization: All CT scans at this facility use at least one of these dose optimization techniques: automated exposure control; mA and/or kV adjustment per patient size (includes targeted exams where dose is matched to clinical indication); or iterative reconstruction. Other technique: STROKE PROTOCOL was implemented. COMPARISON: MRI-Brain without Contrast 07/09/2020 11:41 AM FINDINGS: Brain: There is age-related volume loss. There is white matter lucency consistent with chronic microvascular disease. There are small old basal ganglia lacunar infarcts. No evidence of acute infarct. No hemorrhage or extra-axial collection. No mass. No subarachnoid hemorrhage. No cerebral edema. Cerebral ventricles: No ventriculomegaly. Paranasal sinuses: Visualized sinuses are unremarkable. No fluid levels. Mastoid air cells: Visualized mastoid air cells are well aerated. Bones/joints: Unremarkable. No acute fracture. Soft tissues: Unremarkable. IMPRESSION: 1. 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 2. No acute intracranial lesion or injury. ASSESSMENT: ASPECTS ([place] Stroke Program Early CT Score) is 10. Electronically signed by: Arie Villafuerte On 05/01/2021 17:13:31 PM
--- NOTE | 2021-05-01 17:53 | REPVR ---
PROCEDURE INFORMATION: Exam: CT Cervical Spine Without Contrast Exam date and time: 05/01/2021 3:27 PM Age: 75 years old Clinical indication: Neck pain; Additional info: Right sided headache/neck pain; Right arm pain; R/O stroke TECHNIQUE: Imaging protocol: Computed tomography images of the cervical spine without contrast. Radiation optimization: All CT scans at this facility use at least one of these dose optimization techniques: automated exposure control; mA and/or kV adjustment per patient size (includes targeted exams where dose is matched to clinical indication); or iterative reconstruction. COMPARISON: MRI-Brain without Contrast 07/09/2020 11:41 AM FINDINGS: Vertebrae: There is no fracture. Cervical vertebra maintain their height. There is no fracture of the posterior elements. There is no focal osseous lesion. There is mild C4-C5 anterolisthesis. Alignment is otherwise normal. There is no focal osseous lesion. There are mild degenerative changes of the atlantoaxial joint C2-C3: No disc bulge. Mild facet and uncovertebral hypertrophy. No central or foraminal stenosis. C3-C4: Mild disc bulge. Asymmetric facet hypertrophy. There is mild right and moderate left foraminal stenosis. No central stenosis. C4-C5: Mild disc bulge. Mild right foraminal stenosis due to asymmetric facet hypertrophy. No central stenosis. C5-C6: Spondylosis and disc space narrowing. There is a ventral osteophyte. There is a small central to right paracentral posterior osteophyte and disc bulge. This results in mild central spinal stenosis. There is mild right and moderate to severe left foraminal stenosis. C6-C7: Mild disc bulge. No central stenosis. Moderate left foraminal stenosis. C7-T1: No disc bulge. No central stenosis. Mild bilateral foraminal stenosis. Soft tissues: Unremarkable. Lungs: Lung apices are normal. IMPRESSION: 1. No acute findings. 2. Degenerative findings as detailed above Electronically signed by: Arie Villafuerte On 05/01/2021 17:52:43 PM
[2021-05-01] MEDS ORDERED: methylPREDNISolone 125MG 2ML VIAL IV ONE (18:30)
[2021-05-01 19:15] VITALS: BP 172/72
--- NOTE | 2021-05-02 09:02 | ED PDOC ---
Post-Departure Follow-Up radiology rpeo rtfaxed to Sharron Pacheco MD May 02, 2021 09:02
== END 2021-05-01 19:20 | disposition home or self-care (01) ==
LOC: M ED 14:09
DX: R51.9 Headache, unspecified (principal); M54.12 Radiculopathy, cervical region; E11.9 Type 2 diabetes mellitus without complications; I10 Essential (primary) hypertension; F03.90 Unspecified dementia, unspecified severity, without behavioral disturbance, psychotic disturbance, mood disturbance, and anxiety; F33.9 Major depressive disorder, recurrent, unspecified; Z95.1 Presence of aortocoronary bypass graft; Z95.5 Presence of coronary angioplasty implant and graft; Z79.899 Other long term (current) drug therapy; Z79.82 Long term (current) use of aspirin; Z79.84 Long term (current) use of oral hypoglycemic drugs
CPT/HCPCS: 36415; 70450; 70496; 70498; 72125; 80047; 85025; 85652; 86140; 96374; 99284; J2930; Q9967

== ENCOUNTER → 2021-05-08 | Outpatient (REF) | payer MEDICARE, MEDICAID | LOC: M LAB REF 17:53 | PROVIDERS: ATTEND Surgery | DX: R51.9 Headache, unspecified (principal); M31.6 Other giant cell arteritis ==

== ENCOUNTER 2021-07-25 09:20 | Emergency (ER) | payer MEDICARE, MEDICAID ==
[~2021-07-25] VITALS: Ht 157.5 cm; Wt 87.8 kg
--- OUTSIDE RECORDS SUMMARY | 2021-07-25 09:27 | CCD | Continuity of Care Document ---
Author Author Zofia MARMOLEJO M.D. Organization Unknown Address [address] [place] [address] Phone [phone] Problems Active Problems Provider Date Hyperlipidemia Jose Roberto Marmolejo M.D. Onset: 9 Essential hypertension Jose Roberto Marmolejo M.D. Onset: 2018 Diabetes mellitus Jose Roberto Marmolejo M.D. Onset: 9 Rheumatoid arthritis Jose Roberto Marmolejo M.D. Onset: 01/04/20 19 Gout Jose Roberto Marmolejo M.D. Onset: 9 Vitamin D deficiency Jose Roberto Marmolejo M.D. Onset: 01/04/20 19 Coronary atherosclerosis Jose Roberto Marmolejo M.D. Onset: 05/2019 Sleep apnea Jose Roberto Marmolejo M.D. Onset: 9 Major depressive disorder Jose Roberto Marmolejo M.D. Onset: 05/2019 Social History Type Date Description Comments Sex Unknown ETOH Use Denies alcohol use Tobacco Use Start: Unknown Patient has never smoked Recreational Drug Use Never Used Drugs Allergies and adverse reactions Description No Known Drug Allergies Medications Active Medications SIG Qnty Indications Ordering Provide r Date Prednisone 10mg Tablets 3 tabs po qd 90tabs Jose Roberto Marmolejo M.D. 05/21/2021 Atorvastatin Calcium 80mg Tablets take one tablet by mouth at bedtime 90tabs Jose Roberto Marmolejo M. D. 05/31/2019 Allopurinol 100mg Tablets 1 by mouth every day 90tabs Jose Roberto Marmolejo M.D. 02/22/20 Amlodipine Besylate 5mg Tablets 1 by mouth every day 90tabs Jose Roberto Marmolejo M.D. Enalapril Maleate 20mg Tablets 1 by mouth twice a day 180taJose Roberto Aparicio M.D. Metoprolol Tartrate 25mg Tablets take one tablet by mouth twice a day 180taJose Roberto Aparicio M .D. Metformin HCL 500mg Tablets take 1 tablet by mouth twice daily 180taJose Roberto Aparicio M.D. Freestyle Test Strips to test blood sugars bid Jose Roberto Marmolejo M.D. Aspirin Adult Low Dose 81mg Tablet s DR 1 by mouth every day Jose Roberto Marmolejo M.D. Vitamin D 2000Unit Tablets 1 by mouth every day Unknown Magnesium Oxide 400mg Tablets 1 by mouth every day 90tabs Jose Roberto Marmolejo M.D. History Medications Prednisone 20mg Tablets 2 tabs po qd 60tabs Jose Roberto Marmolejo M.D. 05/07/2021 - Prednisone 50mg Tablets 1 p.o . qd 7tabs Jose Roberto Marmolejo M.D. 05/01/2021 - 05/07/2021 Immunizations CPT Code Status Date Vaccine Lot # [id number] Given 06/18/2021 Influenza Virus Vaccine, Quadrivalent, Slit Virus, Im Use 3Y & Up [id number] 22492 Given 06/10/2020 Influenza Virus Vaccine, Quadrivalent, Slit Virus, Im Use 3Y & Up [id number] 44050 Given 09/05/2019 Influenza Virus Vaccine, Quadrivalent, Slit Virus, Im Use 3Y & Up [id number] Vital Signs Date Vital Result Comment 07/22/2021 9:34am BP Systolic 124 mmHg BP Diastolic 76 mmHg Body Temperature 97.8 F Heart Rate 66 /min Respiratory Rate 12 /min Height 62 inches 5'2" Weight 193.00 lb [place] Body Weight 110 lb BMI (Body Mass Index) 35.3 kg/m2 O2 % BldC Oximetry 94 % 06/18/2021 10:11am BP Systolic 122 mmHg BP Diastolic 78 mmHg Body Temperature 97.3 F Heart Rate 56 /min Respiratory Rate 16 /min Height 62 inches 5'2" Weight 189.00 lb [place] Body Weight 110 lb BMI (Body Mass Index) 34.6 kg/m2 O2 % BldC Oximetry 97 % Results Test Acquired Date Facility Test Result H/L Range Note Lipid Panel 07/22/2021 [facility] Chol 181 mg/dL 0 - 200 1 Trig 158 mg/dL 40 - 200 HDL 46 mg/dL 45 - 65 LDL_C 103 Calc 75 - 129 Cho/HDL Ratio 3.9 CALC Laboratory test finding 07/22/2021 [facility] Uric Acid 5.8 mg/dL High 2.4 - 5.7 Laboratory test finding 07/22/2021 [facility] [place] Sedimentation Rate-Westergren 11 mm/hr 0-40 Hemoglobin A1c 07/22/2021 [facility] [place] Hemoglobin A1c 8.2 % High 4.8-5.6 2 CMP 07/22/2021 [facility] Glu 148 mg/dL High 70 - 110 BUN 33 mg/dL High 8 - 23 Creat 1.2 mg/dL High 0.5 - 1.0 BUN/Creatinine Ratio 26.6 CALC Na 142 mmol/L 136 - 145 K 4.0 mmol/L 3.5 - 5.1 CL 109.7 mmol/L High 98.0 - 107.0 Co2 20.4 mmol/L Low 22.0 - 29.0 CA 9.5 mg/dL 8.6 - 10.2 TP 5.4 g/dL Low 6.6 - 8.7 Alb 3.7 g/dL 3.4 - 4.8 A/G Ratio 2.2 CALC Globulin 1.7 CALC Alp 71.4 U/L 35 - 129 Alt (SGPT) 12 U/L 0 - 41 Ast (Sgot) 9 U/L 0 - 40 Tbili 0.37 mg/dL 0.0 - 1.2 Osmolality-Calculated 293.7 CALC Anion Gap 16 mmol/L eGFR 50 # Calc 3 eGFR Non-Afr. [place]ese 44 # Calc 4 Laboratory test finding 06/18/2021 [facility] Sedimentation Rate 14 0-20 Laboratory test finding 05/21/2021 [facility] Sedimentation Rate 14 0-20 Laboratory test finding 05/07/2021 [facility] Sedimentation Rate 25 High 0-20 Laboratory test finding 05/01/2021 [facility] (Interface) [phone] C Reactive Protein Quantitativ 0.47 mg/dL High 0 .00-0.30 Laboratory test finding 05/01/2021 [facility] (Interface) [phone] Erythrocyte Sedimentation Rate 49 mm/hr High 0 -30 CBC With Differential 05/01/2021 [facility]) [phone] White Blood Count 10.1 10 High 4.0-10.0 Red Blood Count 4.49 10 Normal 4.00-5.40 Hemoglobin 12.5 g/dL Normal 12.0-15.5 Hematocrit 39.0 % Normal 36.0-47.0 Mean Corpuscular Volume 86.9 fl Normal 80.0-96.0 Mean Corpuscular Hemoglobin 27.8 pg Normal 27.0-33.0 Mean Corpuscular HGB Conc 32.1 g/dL Normal 32.0-36.5 Red Cell Distribution Width 14.4 % Normal 11.5-14.5 Platelet Count, Automated 213 10 Normal 150-450 Neutrophils % 65.3 % Normal 36.0-66.0 Lymph % 25.4 % Normal 24.0-44.0 [place] % 7.2 % Normal 2.0-8.0 Eos % 1.3 % Normal 0.0-3.0 Baso % 0.4 % Normal 0.0-1.0 Immature Granulocyte % 0.4 % Normal 0-3.0 Nucleated Red Blood Cell % 0.0 % Normal 0-0 Neutrophils # 6.6 10 Normal 1.5-8.5 Lymph # 2.6 10 Normal 1.5-5.0 [place] # 0.7 10 Normal 0.0-0.8 Eos # 0.1 10 Normal 0.0-0.5 Baso # 0.0 10 Normal 0.0-0.2 Istat Chem8+ Panel 05/01/2021 [facility] (I nterface) [phone] iSTAT HCT 39.0 % Normal 38.0-51.0 iSTAT Glucose 107 mg/dL High 70-105 iSTAT Sodium 141 mEq/L Normal 136-145 iSTAT Potassium 4.4 mEq/L Normal 3.5-5.1 iSTAT CA++ 4.8 mg/dL Normal 4.5-5.3 iSTAT Chloride 106 mEq/L Normal 98-109 iSTAT Co2 24.0 MM/L Normal 23.0-27.0 iSTAT BUN 32 mg/dL High 8-26 iSTAT Creatinine 1.3 mg/dL Normal 0.6-1.3 CMP 04/23/2021 [facility] Glu 197 mg/dL High 70 - 110 BUN 26 mg/dL High 8 - 23 Creat 1.0 mg/dL 0.5 - 1.0 BUN/Creatinine Ratio 25.8 CALC Na 138 mmol/L 136 - 145 K 4.1 mmol/L 3.5 - 5.1 CL 100.0 mmol/L 98.0 - 107.0 Co2 19.7 mmol/L Low 22.0 - 29.0 CA 10.1 mg/dL 8.6 - 10.2 TP 6.7 g/dL 6.6 - 8.7 Alb 4.1 g/dL 3.4 - 4.8 A/G Ratio 1.6 CALC Globulin 2.6 CALC Alp 131.6 U/L High 35 - 129 Alt (SGPT) 9 U/L 0 - 41 Ast (Sgot) 13 U/L 0 - 40 Tbili 0.18 mg/dL 0.0 - 1.2 Osmolality-Calculated 286.3 CALC Anion Gap 23 mmol/L eGFR 63 # Calc 5 eGFR Non-Afr. Taiwanese 54 # Calc 6 Lipid Panel 04/23/2021 [facility] Chol 281 mg/dL High 0 - 200 Trig 332 mg/dL High 40 - 200 HDL 43 mg/dL Low 45 - 65 LDL_C 172 Calc High 75 - 129 Cho/HDL Ratio 6.6 CALC CBC 04/23/2021 [facility] WBC 9.6 10E3/uL 4.1 - 10.9 RBC 4.49 10E6/uL 4.20 - 6.30 HGB 12.6 g/dL 12.0 - 18.0 HCT 38.9 % 37.0 - 51.0 MCV 86.6 fL 80.0 - 97.0 MCH 28.1 pg 26.0 - 32.0 MCHC 32.4 g/dL 31.0 - 36.0 PLT 240 10E3/uL 140 - 440 RDW-CV 14.4 % 11.5 - 14.5 Lym% 24.4 % 10.0 - 58.5 Neut% 69.8 % 37.0 - 92.0 MXD% 5.8 % 0.1 - 24.0 Lym# 2.3 10E3/uL 0.6 - 4.1 Neut# 6.7 % 2.0 - 7.8 MXD# 0.6 10E3/uL 0.0 - 1.8 MPV 11.4 fL 9.0 - 13.0 Laboratory test finding 04/23/2021 [facility] Uric Acid 5.3 mg/dL 2.4 - 5.7 Laboratory test finding 04/23/2021 [facility] [place] Sedimentation Rate-Westergren 58 mm/hr High 0-40 Hemoglobin A1c 04/23/2021 [facility] Hemoglobin A1c 6.7 % High 4.8-5.6 7 1 CHRONIC KIDNEY DISEASE STAGI NG PER NKF: MALE GFR INTERPRETATION: 20-49 YRS: >60 mL/min Normal 50-59 YRS: >56 mL/min Normal 60-69 YRS: >49 mL/min Normal 70-79 YRS: >42 mL/min Normal 80 and above >35 mL/min Normal FEMALE GRF INTERPRETATION: 20-39 YRS: >60 mL/min Normal 40-49 YRS: >58 mL/min Normal 50-59 YRS: >51 mL/min Normal 60-69 YRS: >45 mL/min Normal 70-79 YRS: >39 mL/min Normal 80 and above >32 mL/min NormalCLASSIFICATION CHOLESTEROL FOR ADULTS CHILDREN/ADOLESCENTS* DESIRABLE: <200 MG/DL <170 MG/DL BORDER-LINE HIGH RISK: 200-239 MG/DL 170-199 MG/DL HIGH RISK: >240 MG/DL >200 MG/DL CLASS. FOR PRIMARY LDL CHOL PREVENTION: LDL CHOL-CHILD/ADOLESCENTS* DESIRABLE: <130 MG/DL <110 MG/DL BORDERLINE-HIGH RISK: 130-159 MG/DL 110-129 MG/DL HIGH RISK: >160 MG/DL >130 MG/DL *CHILDREN AND ADOLESCENTS REPRESENTS INDIVIDUALA AGED 2-19 YEARS EXCLUSIVE. 2 Prediabetes: 5.7 - 6.4 Diabetes: >6.4 Glycemic control for adults with diabetes: <7.0 3 CKD-EPI 4 CKD-EPI 5 CKD-EPI 6 CKD-EPI 7 Prediabetes: 5.7 - 6.4 Diabetes: >6.4 Glycemic control for adults with diabetes: <7.0 Procedures Date Code Description Status 07/22/2021 19502 Office/Outpatient Established Mo d MDM 30-39 Min Completed 06/18/2021 79564 Office/Outpatient Established Mo d MDM 30-39 Min Completed 05/21/2021 87857 Office/Outpatient Established Mo d MDM 30-39 Min Completed 05/07/2021 97821 Office/Outpatient Established Mo d MDM 30-39 Min Completed 05/02/2021 71277 Office/Outpatient Established Mo d MDM 30-39 Min Completed 04/23/2021 60333 Office/Outpatient Established Mo d MDM 30-39 Min Completed 03/02/2019 [id number] Mammogram Completed Medical Devices Description No Information Available Encounters Type Date Location Provider Dx Diagnosis Office Visit 07/22/2021 9:45a [place] [facility] Jose Roberto Marmolejo M. D. 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 D. M31.6 Other giant cell arteritis Z23 Encounter for immunization Office Visit 05/21/2021 11:45a [place] Jose Roberto Marmolejo M. D. M31.6 Other giant cell arteritis Office Visit 05/07/2021 11:45a [place] Jose Roberto Marmolejo M. D. M54.12 Radiculopathy, cervical region M31.6 Other giant cell arteritis Office Visit 05/02/2021 8:30a [place] Jose Roberto Marmolejo M. D. M54.12 Radiculopathy, cervical region Office Visit 04/23/2021 3:20p [place] [facility] Jose Roberto Marmolejo M. D. 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 07/22/2021 E11.9 Type 2 diabetes mellitus without complications Jose Roberto Marmolejo M.D. 07/22/2021 F02.80 Dementia in other di seases classified elsewhere without behavioral disturbance Jose Roberto Marmolejo M.D. 07/22/2021 E78.5 Hyperlipidemia, unspecified [facility] Jose Roberto granados M.D. 07/22/2021 I10 Essential (primary) hypertension Jose Roberto Marmolejo M.D. 07/22/2021 M10.9 Gout, unspecified Richard Marmolejo M.D. 06/18/2021 M31.6 Other giant cell arteritis Jose Roberto Nguyễn M.D. 06/18/2021 Z23 Encounter for immunization Jose Roberto Nguyễn M.D. 05/21/2021 M31.6 Other giant cell arteritis Jose Roberto Nguyễn M.D. 05/07/2021 M54.12 Radiculopathy, cervical region Jose Roberto Schmidt M.D. 05/07/2021 M31.6 Other giant cell arteritis Jose Roberto Nguyễn M.D. 05/02/2021 M54.12 Radiculopathy, cervical region Jose Roberto Schmidt M.D. 04/23/2021 E11.9 Type 2 diabetes mellitus without complications Jose Roberto Marmolejo M.D. 04/23/2021 F02.80 Dementia in other di seases classified elsewhere without behavioral disturbance Jose Roberto Marmolejo M.D. 04/23/2021 E78.5 Hyperlipidemia, unspecified [facility] Jose Roberto granados M.D. 04/23/2021 I10 Essential (primary) hypertension Jose Roberto Marmolejo M.D. 04/23/2021 M10.9 Gout, unspecified Richard Marmolejo M.D. Plan of Treatment Future Appointment(s):* 10/28/2021 8:30 am - Jose Roberto Marmolejo M.D. at [place] [facility] Functional Status Description No Information Available Mental Status Description No Information Available Referrals Refer to Dr Reason for Referral Status Appt Date Joe Whipple M.D. right temporal artery biopsy for swelling wi th pain Sent 05/08/[address] [place] [address], [address] [place] [address] [phone]
--- OUTSIDE RECORDS SUMMARY | 2021-07-25 09:27 | CCD | Continuity of Care Document ---
Author Author Zofia MARMOLEJO M.D. Organization Unknown Address [address] [place] [id number] Phone [phone] Problems Active Problems Provider Date Hyperlipidemia Jose [...] CPT Code Status Date Vaccine Lot # [id number] Given 06/18/2021 Influenza Virus Vaccine, Quadrivalent, Slit Virus, Im Use 3Y & Up [id number] 72966 Given 06/10/2020 Influenza Virus Vaccine, Quadrivalent, Slit Virus, Im Use 3Y & Up [id number] [id number] Given 09/05/2019 Influenza Virus Vaccine, Quadrivalent, Slit Virus, Im Use 3Y & Up [id number] Vital Signs Date Vital Result Comment 07/22/2021 9:34am BP Systolic 124 mmHg BP Diastolic 76 mmHg Body Temperature 97.8 F Heart Rate 66 /min Respiratory Rate 12 /min Height 62 inches 5'2" Weight 193.00 lb [place] Body Weight 110 lb BMI (Body Mass Index) 35.3 kg/m2 O2 % BldC Oximetry 94 % 06/18/2021 10:11am BP Systolic 122 mmHg BP Diastolic 78 mmHg Body Temperature 97.3 F Heart Rate 56 /min Respiratory Rate 16 /min Height 62 inches 5'2" Weight 189.00 lb [place] Body Weight 110 lb BMI (Body Mass [...] eGFR 50 # Calc 3 eGFR Non-Afr. [place] 44 # Calc 4 Laboratory test finding 06/18/2021 [facility] Sedimentation Rate 14 0-20 Laboratory test finding 05/21/2021 [facility] Sedimentation Rate 14 0-20 Laboratory test finding 05/07/2021 [facility] Sedimentation Rate 25 High 0-20 Laboratory test finding 05/01/2021 [facility] (Interface) [phone] C Reactive Protein Quantitativ 0.47 mg/dL High 0 .00-0.30 Laboratory test finding 05/01/2021 [facility] (Interface) [phone] Erythrocyte Sedimentation Rate 49 mm/hr High 0 -30 CBC With Differential 05/01/2021 [facility]) [phone] White Blood Count 10.1 10 High 4.0-10.0 [...] 36.0-66.0 Lymph % 25.4 % Normal 24.0-44.0 [place] % 7.2 % Normal 2.0-8.0 Eos % 1.3 % Normal 0.0-3.0 Baso % 0.4 % Normal 0.0-1.0 Immature Granulocyte % 0.4 % Normal 0-3.0 Nucleated Red Blood Cell % 0.0 % Normal 0-0 Neutrophils # 6.6 10 Normal 1.5-8.5 Lymph # 2.6 10 Normal 1.5-5.0 [place] # 0.7 10 Normal 0.0-0.8 Eos # 0.1 10 Normal 0.0-0.5 Baso # 0.0 10 Normal 0.0-0.2 Istat Chem8+ Panel 05/01/2021 [facility] (I nterface) [phone] iSTAT HCT 39.0 % Normal 38.0-51.0 iSTAT [...] eGFR 63 # Calc 5 eGFR Non-Afr. [place] 54 # Calc 6 Lipid Panel 04/23/2021 [...] <7.0 Procedures Date Code Description Status 07/22/2021 20634 Office/Outpatient Established Mo d MDM 30-39 Min Completed 06/18/2021 39465 Office/Outpatient Established Mo d MDM 30-39 Min Completed 05/21/2021 42685 Office/Outpatient Established Mo d MDM 30-39 Min Completed 05/07/2021 78010 Office/Outpatient Established Mo d MDM 30-39 Min Completed 05/02/2021 68986 Office/Outpatient Established Mo d MDM 30-39 Min Completed 04/23/2021 72238 Office/Outpatient Established Mo d MDM 30-39 Min Completed 03/02/2019 [id number] Mammogram Completed Medical Devices Description No Information Available Encounters Type Date Location Provider Dx Diagnosis Office Visit 07/22/2021 9:45a [facility] [place] [facility] Jose Roberto Marmolejo M. D. M31.6 Other giant cell arteritis E11.9 Type 2 diabetes mellitus wit hout complications F02.80 Dementia in oth diseases [facility] w/o behavrl disturb E78.5 Hyperlipidemia, unspecified I10 Essential (primary) hyperten carmelo M10.9 Gout, unspecified Office Visit 06/18/2021 8:30a [facility] Jose Roberto Marmolejo M. D. M31.6 Other giant cell arteritis Z23 Encounter for immunization Office Visit 05/21/2021 11:45a [facility] Jose Roberto Marmolejo M. D. M31.6 Other giant cell arteritis Office Visit 05/07/2021 11:45a [facility] Jose Roberto Marmolejo M. D. M54.12 Radiculopathy, cervical region M31.6 Other giant cell arteritis Office Visit 05/02/2021 8:30a [facility] Jose Roberto Marmolejo M. D. M54.12 Radiculopathy, cervical region Office Visit 04/23/2021 3:20p [facility] Jose Roberto Marmolejo M. D. E11.9 Type 2 diabetes mellitus without complications F02.80 Dementia in oth diseases [facility] w/o behavrl disturb E78.5 Hyperlipidemia, unspecified I10 Essential (primary) hyperten carmelo M10.9 Gout, unspecified Assessments Date Code Description Provider 07/22/2021 M31.6 Other giant cell arteritis Faustino Jose Roberto berger M.D. 07/22/2021 E11.9 Type 2 diabetes mellitus without complications Jose Roberto Marmolejo M.D. 07/22/2021 F02.80 Dementia in other di seases classified elsewhere without behavioral disturbance Jose Roberto Marmolejo M.D. 07/22/2021 E78.5 Hyperlipidemia, unspecified [facility] Jose Roberto granados M.D. 07/22/2021 I10 Essential [...] Roberto Marmolejo M.D. 04/23/2021 E78.5 Hyperlipidemia, unspecified [facility] Jose Roberto granados M.D. 04/23/2021 I10 Essential (primary) hypertension Jose Roberto Marmolejo M.D. 04/23/2021 M10.9 Gout, unspecified Richard Marmolejo M.D. Plan of Treatment Future Appointment(s):* 10/28/2021 8:30 am - Jose Roberto Marmolejo M.D. at [place] [facility] Functional Status Description No Information Available Mental Status Description No Information Available Referrals Refer to Dr Reason for Referral Status Appt Date Joe Whipple M.D. right temporal artery biopsy for swelling wi th pain Sent 05/08/[address] [place] [address], [address] [place] [address] [phone]
--- OUTSIDE RECORDS SUMMARY | 2021-07-25 09:28 | CCD | Continuity of Care Document ---
Author Author Zofia CHA PA Organization Unknown Address [address] [facility], [address] [place] [address] Phone [phone] Care Team Providers Care Step Down Nurse Name Role Phone Jagdish Garg M.D. AUTM [phone] Jose Roberto Marmolejo M.D. AUTM [phone] Problems Active Problems Provider Date Proteinuria Katarina Clancy MD Onset: 04/09 Essential hypertension Katarina Clancy MD Onset: Blood chemistry abnormal Katarina Clancy MD Onset: 04/09/2011 Arteriosclerosis of arterial coronary artery bypass gr aft Katarina Clancy MD Onset: 04/09/2011 Heart failure Katarina Clancy MD Onset: 04/09 Ischemic heart disease Katarina Clancy MD Onset: Degenerative joint disease involving multiple joints K rishnpedro Clancy MD Onset: 04/09/2011 Hyperlipidemia Kaatrina Clancy MD Onset: 04/09 Vitamin D deficiency Katarina Clancy MD Onset: 03/27 Urinary tract infectious disease Katarina Clancy MD Onset: 04/24/2011 Iron deficiency anemia Katarina Clancy MD Onset: Social History Type Date Description Comments Sex Unknown ETOH Use Denies alcohol use Tobacco Use Start: Unknown Denies Smoking Recreational Drug Use Denies Drug Use Allergies, Adverse Reactions, Alerts Description No Known Drug Allergies Medications Active Medications SIG Qnty Indications Ordering Provide r Date Metoprolol Tartrate 25mg Tablets 1 po bid 401.9 Unknown 428.9 411.89 Enalapril Maleate 20mg Tablets bid. 60tabs 791.0 Unknown 401.9 Aspirin Ec Low Dose 81mg Tablets DR qd Unknown Vitamin D 2000Unit Tablets qd Unknown Metformin HCL 500mg Tablets 1 by mouth twice a day Unknown Amlodipine Besylate 5mg Tablets by mouth every night Unknown Atorvastatin Calcium 80mg Tablets 1 by mouth every day Unknown Allopurinol 100mg Tablets bid Unknown Magnesium Oxide (Elemental) 400mg Tablets 1 qd Unknown Prednisone 20mg Tablets 2 by mouth every day Unknown Immunizations Description No Information Available Vital Signs Date Vital Result Comment 05/15/2021 10:56am BP Systolic 154 mmHg BP Diastolic 74 mmHg Heart Rate 51 /min Body Temperature 98.3 F Height 62 inches 5'2" Weight 182.00 lb BMI (Body Mass Index) 33.3 kg/m2 [place] Body Weight 110 lb Weight 82.555 kg BSA (Body Surface Area) 1.84 m2 05/08/2021 2:48pm BP Systolic 164 mmHg BP Diastolic 80 mmHg Heart Rate 65 /min Body Temperature 98.4 F Height 62 inches 5'2" Weight 184.12 lb BMI (Body Mass Index) 33.7 kg/m2 [place] Body Weight 110 lb Weight 83.519 kg BSA (Body Surface Area) 1.85 m2 Results Test Acquired Date Facility Test Result H/L Range Note Laboratory test finding 05/08/2021 [facility] [address] [place] [address] [phone] Pathology Request For Service (SEE NOTE) 1 1 FINAL DIAGNOSIS Temporal artery, right, biopsy: Medium size artery with mild atherosclerosis, otherwise without significant pathology. (See comment). Comment: A negative biopsy does not rule out the possibility of giant cell (temporal) arteritis. This can be a focal disorder. The clinical management should be dependent upon the clinical impression. 05/12/2021 - 1028 CLINICAL DIAGNOSIS Right temporal arteritis 05/09/2021 - 1339 GROSS DIAGNOSIS Received in formalin labeled "right temporal biopsy" and consists of a segment of artery 1.5 cm. in length and 0.1 cm. in greatest diameter. All in one. -OA 05/09/2021 - 1339 Signed MICHELLE HARDEN MD 05/12/2021 1028 Procedures Description No Information Available Medical Devices Description No Information Available Encounters Type Date Location Provider Dx Diagnosis Office Visit 05/15/2021 10:45a [facility] MARIA ELENA Gutierrez R51.9 Headache, unspecified Z48.02 Encounter for removal of sut ures Assessments Date Code Description Provider 05/15/2021 R51.9 Headache, unspecified MARIA ELENA Self 05/15/2021 Z48.02 Encounter for removal of sutures MARIA ELENA Carter 05/08/2021 R51.9 Headache, unspecified Toñito Metzger MD Plan of Treatment No Information Available Functional Status Description No Information Available Mental Status Description No Information Available Referrals Refer to Dr Reason for Referral Status Appt Date Toñito Metzger MD RIGHT TEMPORAL ARTERY BIOPSY Scheduled 05/08/[address] [place] [address] [phone]
--- OUTSIDE RECORDS SUMMARY | 2021-07-25 09:28 | CCD | Continuity of Care Document ---
Author Author Zofia MARMOLEJO M.D. Organization Unknown Address [address] [address] Phone [phone] Problems Active Problems Provider Date Hyperlipidemia Jose [...] smoked Recreational Drug Use Never Used Drugs Allergies, Adverse Reactions, Alerts Description No Known [...] Tablets 1 by mouth twice a day 180tabs Jose Roberto Marmolejo M.D. Metoprolol Tartrate 25mg Tablets take one tablet by mouth twice a day 180tabs Jose Roberto Marmolejo M .D. Metformin HCL 500mg Tablets take 1 tablet by mouth twice daily 180tabs Jose Roberto Marmolejo M.D. Freestyle Test Strips to test blood [...] CPT Code Status Date Vaccine Lot # [id number] Given 06/10/2020 Influenza Virus Vaccine, Quadrivalent, Slit Virus, Im Use 3Y & Up [id number] Given 09/05/2019 Influenza Virus Vaccine, Quadrivalent, Slit Virus, Im Use 3Y & Up [id number] Vital Signs Date Vital Result Comment 05/21/2021 11:49am BP Systolic 122 mmHg BP Diastolic 68 mmHg Body Temperature 97.9 F Heart Rate 58 /min Respiratory Rate 14 /min Height 62 inches 5'2" Weight 187.00 lb [place] Body Weight 110 lb BMI (Body Mass Index) 34.2 kg/m2 O2 % BldC Oximetry 98 % 05/07/2021 12:04pm BP Systolic 124 mmHg BP Diastolic 78 mmHg Body Temperature 97.5 F Heart Rate 56 /min Respiratory Rate 16 /min Height 62 inches 5'2" Weight 184.00 lb [place] Body Weight 110 lb BMI (Body Mass Index) 33.7 kg/m2 O2 % BldC Oximetry 96 % Results Test Acquired Date Facility Test Result H/L Range Note Laboratory test finding 05/21/2021 [facility] Sedimentation Rate 14 0-20 Laboratory test finding 05/07/2021 [facility] Sedimentation Rate 25 High 0-20 Istat Chem8+ Panel 05/01/2021 [facility] (I nterce) [phone] iSTAT HCT 39.0 % Normal 38.0-51.0 iSTAT Glucose 107 mg/dL High 70-105 iSTAT Sodium 141 mEq/L Normal 136-145 iSTAT Potassium 4.4 mEq/L Normal 3.5-5.1 iSTAT CA++ 4.8 mg/dL Normal 4.5-5.3 iSTAT Chloride 106 mEq/L Normal 98-109 iSTAT Co2 24.0 MM/L Normal 23.0-27.0 iSTAT BUN 32 mg/dL High 8-26 iSTAT Creatinine 1.3 mg/dL Normal 0.6-1.3 Laboratory test finding 05/01/2021 [facility] (Interface) [phone] C Reactive Protein Quantitativ 0.47 mg/dL High 0 .00-0.30 CBC With Differential 05/01/2021 [facility] (Interface) [phone] White Blood Count 10.1 10 High 4.0-10.0 [...] 36.0-66.0 Lymph % 25.4 % Normal 24.0-44.0 [place] % 7.2 % Normal 2.0-8.0 Eos % 1.3 % Normal 0.0-3.0 Baso % 0.4 % Normal 0.0-1.0 Immature Granulocyte % 0.4 % Normal 0-3.0 Nucleated Red Blood Cell % 0.0 % Normal 0-0 Neutrophils # 6.6 10 Normal 1.5-8.5 Lymph # 2.6 10 Normal 1.5-5.0 [place] # 0.7 10 Normal 0.0-0.8 Eos # 0.1 10 Normal 0.0-0.5 Baso # 0.0 10 Normal 0.0-0.2 Laboratory test finding 05/01/2021 [facility] ([facility]) [phone] Erythrocyte Sedimentation Rate 49 mm/hr High 0 -30 CMP 04/23/2021 [facility] Glu 197 mg/dL High 70 - 110 1 BUN 26 mg/dL High 8 - 23 [...] Gap 23 mmol/L eGFR 63 # Calc 2 eGFR Non-Afr. Mal[place]ian 54 # Calc 3 Lipid Panel 04/23/2021 [facility] Chol 281 mg/dL [...] NE Hemoglobin A1c 6.7 % High 4.8-5.6 4 1 CHRONIC KIDNEY DISEASE STAGI NG PER [...] REPRESENTS INDIVIDUALA AGED 2-19 YEARS EXCLUSIVE. 2 CKD-EPI 3 CKD-EPI 4 Prediabetes: 5.7 - 6.4 Diabetes: >6.4 Glycemic control for adults with diabetes: <7.0 Procedures Date Code Description Status 05/21/2021 71837 Office/Outpatient Established Mo d MDM 30-39 Min Completed 05/07/2021 39942 Office/Outpatient Established Mo d MDM 30-39 Min Completed 05/02/2021 64027 Office/Outpatient Established Mo d MDM 30-39 Min Completed 04/23/2021 36212 Office/Outpatient Established Mo d MDM 30-39 Min Completed 03/02/2019 [id number] Mammogram Completed Medical Devices Description No Information Available Encounters Type Date Location Provider Dx Diagnosis Office Visit 05/21/2021 11:45a [place] [facility] Jose Roberto Marmolejo M. D. M31.6 Other giant cell arteritis Office Visit 05/07/2021 11:45a [place] [facility] Jose Roberto Marmolejo M. D. M54.12 Radiculopathy, cervical region M31.6 Other giant cell arteritis Office Visit 05/02/2021 8:30a [place] [facility] Jose Roberto Marmolejo M. D. M54.12 Radiculopathy, cervical region Office Visit 04/23/2021 3:20p [place] [facility] Jose Roberto Marmolejo M. D. 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 04/23/2021 E78.5 Hyperlipidemia, unspecified [facility] helJose Roberto maynard M.D. 04/23/2021 I10 Essential (primary) hypertension Jose Roberto Marmolejo M.D. 04/23/2021 M10.9 Gout, unspecified Richard Marmolejo M.D. Plan of Treatment Future Appointment(s):* 06/18/2021 8:30 am - Jose Roberto Marmolejo M.D. at [facility] * 07/29/2021 9:00 am - Jose Roberto Marmolejo M.D. at [facility] Functional Status Description No Information Available Mental Status Description No Information Available Referrals Refer to Dr Reason for Referral Status Appt Date Joe Whipple M.D. right temporal artery biopsy for swelling wi th pain Sent 05/08/[address] [place] [address], [address] [place], [place] [id number] [phone]
--- OUTSIDE RECORDS SUMMARY | 2021-07-25 09:28 | CCD | Continuity of Care Document ---
Author Author Zofia MARMOLEJO M.D. Organization Unknown Address [address] [place] [address] Phone [phone] Problems Active Problems Provider Date Hyperlipidemia Jose [...] CPT Code Status Date Vaccine Lot # [id number] Given 06/18/2021 Influenza Virus Vaccine, Quadrivalent, Slit Virus, Im Use 3Y & Up [id number] 12598 Given 06/10/2020 Influenza Virus Vaccine, Quadrivalent, Slit Virus, Im Use 3Y & Up [id number] Given 09/05/2019 Influenza Virus Vaccine, Quadrivalent, Slit Virus, Im Use 3Y & Up [id number] Vital Signs Date Vital Result Comment 07/22/2021 9:34am BP Systolic 124 mmHg BP Diastolic 76 mmHg Body Temperature 97.8 F Heart Rate 66 /min Respiratory Rate 12 /min Height 62 inches 5'2" Weight 193.00 lb [place] Body Weight 110 lb BMI (Body Mass Index) 35.3 kg/m2 O2 % BldC Oximetry 94 % 06/18/2021 10:11am BP Systolic 122 mmHg BP Diastolic 78 mmHg Body Temperature 97.3 F Heart Rate 56 /min Respiratory Rate 16 /min Height 62 inches 5'2" Weight 189.00 lb [place] Body Weight 110 lb BMI (Body Mass Index) 34.6 kg/m2 O2 % BldC Oximetry 97 % Results Test Acquired Date Facility Test Result H/L Range Note Laboratory test finding 06/18/2021 [facility] Sedimentation Rate 14 0-20 Laboratory test finding 05/21/2021 [facility] Sedimentation Rate 14 0-20 Laboratory test finding 05/07/2021 [facility] Sedimentation Rate 25 High 0-20 Istat Chem8+ Panel 05/01/2021 [facility] (I nterface) [phone] iSTAT HCT 39.0 % Normal 38.0-51.0 iSTAT Glucose 107 mg/dL High 70-105 iSTAT Sodium 141 mEq/L Normal 136-145 iSTAT Potassium 4.4 mEq/L Normal 3.5-5.1 iSTAT CA++ 4.8 mg/dL Normal 4.5-5.3 iSTAT Chloride 106 mEq/L Normal 98-109 iSTAT Co2 24.0 MM/L Normal 23.0-27.0 iSTAT BUN 32 mg/dL High 8-26 iSTAT Creatinine 1.3 mg/dL Normal 0.6-1.3 Laboratory test finding 05/01/2021 [facility] (Interface) [phone] C Reactive Protein Quantitativ 0.47 mg/dL High 0 .00-0.30 CBC With Differential 05/01/2021 [facility] (Interface) [phone] White Blood Count 10.1 10 High 4.0-10.0 [...] 36.0-66.0 Lymph % 25.4 % Normal 24.0-44.0 [place] % 7.2 % Normal 2.0-8.0 Eos % 1.3 % Normal 0.0-3.0 Baso % 0.4 % Normal 0.0-1.0 Immature Granulocyte % 0.4 % Normal 0-3.0 Nucleated Red Blood Cell % 0.0 % Normal 0-0 Neutrophils # 6.6 10 Normal 1.5-8.5 Lymph # 2.6 10 Normal 1.5-5.0 [place] # 0.7 10 Normal 0.0-0.8 Eos # 0.1 10 Normal 0.0-0.5 Baso # 0.0 10 Normal 0.0-0.2 Laboratory test finding 05/01/2021 [facility] (Interface) [phone] Erythrocyte Sedimentation Rate 49 mm/hr High 0 [...] eGFR 63 # Calc 2 eGFR Non-Afr. [place]ian 54 # Calc 3 Lipid Panel 04/23/2021 [...] <7.0 Procedures Date Code Description Status 07/22/2021 25298 Office/Outpatient Established Mo d MDM 30-39 Min Completed 06/18/2021 01320 Office/Outpatient Established Mo d MDM 30-39 Min Completed 05/21/2021 68477 Office/Outpatient Established Mo d MDM 30-39 Min Completed 05/07/2021 87272 Office/Outpatient Established Mo d MDM 30-39 Min Completed 05/02/2021 56566 Office/Outpatient Established Mo d MDM 30-39 Min Completed 04/23/2021 69684 Office/Outpatient Established Mo d MDM 30-39 Min Completed 03/02/2019 [id number] Mammogram Completed Medical Devices Description No Information Available Encounters Type Date Location Provider Dx Diagnosis Office Visit 07/22/2021 9:45a [place] [facility] Jose Roberto Marmolejo M. D. 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 D. M31.6 Other giant cell arteritis Z23 Encounter for immunization Office Visit 05/21/2021 11:45a [place] [facility] Jose Roberto Marmolejo M. D. M31.6 Other giant cell arteritis Office Visit 05/07/2021 11:45a [place] [facility] Jose Roberto Marmolejo M. D. M54.12 Radiculopathy, cervical region M31.6 Other giant cell arteritis Office Visit 05/02/2021 8:30a [place] [facility] Jose Roberto Marmolejo M. D. M54.12 Radiculopathy, cervical region Office Visit 04/23/2021 3:20p [place] [facility] Jose Roberto Marmolejo M. D. 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 07/22/2021 E11.9 Type 2 diabetes mellitus without complications Jose Roberto Marmolejo M.D. 07/22/2021 F02.80 Dementia in other di seases classified elsewhere without behavioral disturbance Jose Roberto Marmolejo M.D. 07/22/2021 E78.5 Hyperlipidemia, unspecified [facility] Jose Roberto granados M.D. 07/22/2021 I10 Essential [...] Roberto Marmolejo M.D. 04/23/2021 E78.5 Hyperlipidemia, unspecified [facility] Jose Roberto granados M.D. 04/23/2021 I10 Essential (primary) hypertension Jose Roberto Marmolejo M.D. 04/23/2021 M10.9 Gout, unspecified Richard Marmolejo M.D. Plan of Treatment Future Appointment(s):* 07/29/2021 9:00 am - Jose Roberto Marmolejo M.D. at [facility] Functional Status Description No Information Available Mental Status Description No Information Available Referrals Refer to Reason for Referral Status Appt Date Joe Whipple M.D. right temporal artery biopsy for swelling wi th pain Sent 05/08/[address] [place] [address], [address] [place] [id number] [phone]
--- OUTSIDE RECORDS SUMMARY | 2021-07-25 09:28 | CCD | Continuity of Care Document ---
Author Author MARCO A CROOK, Zofia Alcantar Organization Unknown Address [address] [place] [address] Phone [phone] Care Team Providers Care Visual Design Lead Name Role Phone Jagdish Garg M.D. AUTM [phone] Jose Roberto Marmolejo M.D. AUTM [phone] Problems Active Problems Provider Date Proteinuria Katarina [...] K rishnpedro Clancy MD Onset: 04/09/2011 Hyperlipidemia Katarina Clancy MD Onset: 04/09 Vitamin D deficiency Katarina Clancy MD Onset: 03/27 Urinary tract infectious disease Katarina Clancy MD Onset: 04/24/2011 Iron deficiency anemia Katarina Clancy MD Onset: Social History Type Date Description Comments Sex Unknown ETOH Use Denies alcohol use Tobacco Use Start: Unknown Denies Smoking Recreational Drug Use Denies Drug Use Allergies and adverse reactions Description No Known [...] Tablets 2 by mouth every day Unknown Medications Administered in Office Medication SIG Qnty Indications Ordering Provider Date Ligation Or Biopsy Temporal Artery Injection Toñito Metzger MD 05/08 Immunizations Description No Information Available Vital Signs Date Vital Result Comment 05/15/2021 10:56am BP Systolic 154 mmHg BP Diastolic 74 mmHg Heart Rate 51 /min Body Temperature 98.3 F Height 62 inches 5'2" Weight 182.00 lb BMI (Body Mass Index) 33.3 kg/m2 [place] Body Weight 110 lb Weight 82.555 kg BSA (Body Surface Area) 1.84 m2 05/08/2021 2:48pm BP Systolic 164 mmHg BP Diastolic 80 mmHg Heart Rate 65 /min Body Temperature 98.4 F Height 62 inches 5'2" Weight 184.12 lb BMI (Body Mass Index) 33.7 kg/m2 [place] Body Weight 110 lb Weight 83.519 kg BSA (Body Surface Area) 1.85 m2 Results Test Acquired Date Facility Test Result H/L Range Note Laboratory test finding 05/08/[address] [facility]ology [address] [place], [place] [id number] [phone] Pathology Request For Service (SEE NOTE) 1 [...] CLINICAL DIAGNOSIS Right temporal arteritis 05/09/2021 - 1338 GROSS DIAGNOSIS Received in formalin labeled "right temporal biopsy" and consists of a segment of artery 1.5 cm. in length and 0.1 cm. in greatest diameter. All in one. -OA 05/09/2021 - 1338 Signed MICHELLE HARDEN MD 05/12/2021 1028 Procedures Date Code Description Status 05/08/2021 10035 Ligation Or Biopsy Temporal Raysa ry Completed Medical Devices Description No Information Available Encounters Type Date Location Provider Dx Diagnosis Office Visit 05/15/2021 10:45a [facility] MARIA ELENA Gutierrez R51.9 Headache, [...] to Reason for Referral Status Appt Date Toñito Metzger MD RIGHT TEMPORAL ARTERY BIOPSY Scheduled 05/08/2021 [address] [place] [address] [phone]
--- OUTSIDE RECORDS SUMMARY | 2021-07-25 09:28 | CCD | Continuity of Care Document ---
Author Author Zofia CHA PA Organization Unknown Address [address] [facility], [address] [place] [address] Phone [phone] Care Team Providers Care Commercial Print Salesman Name Role Phone Jagdish Garg M.D. AUTM [phone] Jose Roberto Marmolejo M.D. AUTM [phone] Problems Active Problems Provider Date Proteinuria Katarina [...] lb BMI (Body Mass Index) 33.3 kg/m2 [place] Body Weight 110 lb Weight 82.555 kg BSA (Body Surface Area) 1.84 m2 05/08/2021 2:48pm BP Systolic 164 mmHg BP Diastolic 80 mmHg Heart Rate 65 /min Body Temperature 98.4 F Height 62 inches 5'2" Weight 184.12 lb BMI (Body Mass Index) 33.7 kg/m2 [place] Body Weight 110 lb Weight 83.519 kg BSA (Body Surface Area) 1.85 m2 Results Test Acquired Date Facility Test Result H/L Range Note Laboratory test finding 05/08/2021 [facility] [address] [place] [address] [phone] Pathology Request For Service (SEE NOTE) 1 [...] Medical Devices Description No Information Available Encounters Description No Information Available Assessments Date Code Description Provider 05/15/2021 R51.9 Headache, unspecified MARIA ELENA Self Plan of Treatment No Information Available Functional Status Description No Information Available Mental Status Description No Information Available Referrals Refer to Reason for Referral Status Appt Date Toñito Metzger MD RIGHT TEMPORAL ARTERY BIOPSY Scheduled 05/08/2021 [address] [place] [address] [phone]
--- OUTSIDE RECORDS SUMMARY | 2021-07-25 09:28 | CCD | Continuity of Care Document ---
Author Author Zofia MARMOLEJO M.D. Organization Unknown Address [address] [place] [address] Phone [phone] Problems Active Problems Provider Date Hyperlipidemia Jose [...] CPT Code Status Date Vaccine Lot # [id number] Given 06/18/2021 Influenza Virus Vaccine, Quadrivalent, Slit Virus, Im Use 3Y & Up [id number] Given 06/10/2020 Influenza Virus Vaccine, Quadrivalent, Slit Virus, Im Use 3Y & Up [id number] 75036 Given 09/05/2019 Influenza Virus Vaccine, Quadrivalent, Slit Virus, Im Use 3Y & Up [id number] Vital Signs Date Vital Result Comment 07/22/2021 9:34am BP Systolic 124 mmHg BP Diastolic 76 mmHg Body Temperature 97.8 F Heart Rate 66 /min Respiratory Rate 12 /min Height 62 inches 5'2" Weight 193.00 lb [place] Body Weight 110 lb BMI (Body Mass Index) 35.3 kg/m2 O2 % BldC Oximetry 94 % 06/18/2021 10:11am BP Systolic 122 mmHg BP Diastolic 78 mmHg Body Temperature 97.3 F Heart Rate 56 /min Respiratory Rate 16 /min Height 62 inches 5'2" Weight 189.00 lb [place] Body Weight 110 lb BMI (Body Mass [...] eGFR 50 # Calc 3 eGFR Non-Afr. Malian 44 # Calc 4 Laboratory test finding 06/18/2021 [facility] Sedimentation Rate 14 0-20 Laboratory test finding 05/21/2021 [facility] Sedimentation Rate 14 0-20 Laboratory test finding 05/07/2021 [facility] Sedimentation Rate 25 High 0-20 Laboratory test finding 05/01/2021 [facility] (Interface) [phone] C Reactive Protein Quantitativ 0.47 mg/dL High 0 .00-0.30 Laboratory test finding 05/01/2021 [facility] (Interface) [phone] Erythrocyte Sedimentation Rate 49 mm/hr High 0 -30 CBC With Differential 05/01/2021 [facility]) [phone] White Blood Count 10.1 10 High 4.0-10.0 [...] 36.0-66.0 Lymph % 25.4 % Normal 24.0-44.0 [place] % 7.2 % Normal 2.0-8.0 Eos % 1.3 % Normal 0.0-3.0 Baso % 0.4 % Normal 0.0-1.0 Immature Granulocyte % 0.4 % Normal 0-3.0 Nucleated Red Blood Cell % 0.0 % Normal 0-0 Neutrophils # 6.6 10 Normal 1.5-8.5 Lymph # 2.6 10 Normal 1.5-5.0 [place] # 0.7 10 Normal 0.0-0.8 Eos # 0.1 10 Normal 0.0-0.5 Baso # 0.0 10 Normal 0.0-0.2 Istat Chem8+ Panel 05/01/2021 [facility] (I nterface) [phone] iSTAT HCT 39.0 % Normal 38.0-51.0 iSTAT [...] eGFR 63 # Calc 5 eGFR Non-Afr. [place] 54 # Calc 6 Lipid Panel 04/23/2021 [...] <7.0 Procedures Date Code Description Status 07/22/2021 25734 Office/Outpatient Established Mo d MDM 30-39 Min Completed 06/18/2021 27687 Office/Outpatient Established Mo d MDM 30-39 Min Completed 05/21/2021 56351 Office/Outpatient Established Mo d MDM 30-39 Min Completed 05/07/2021 58281 Office/Outpatient Established Mo d MDM 30-39 Min Completed 05/02/2021 81601 Office/Outpatient Established Mo d MDM 30-39 Min Completed 04/23/2021 76956 Office/Outpatient Established Mo d MDM 30-39 Min Completed 03/02/2019 [id number] Mammogram Completed Medical Devices Description No Information Available Encounters Type Date Location Provider Dx Diagnosis Office Visit 07/22/2021 9:45a [facility] Jose Roberto Marmolejo M. D. M31.6 Other giant cell arteritis E11.9 Type 2 diabetes mellitus wit hout complications F02.80 Dementia in oth diseases [facility] elswhr w/o behavrl disturb E78.5 Hyperlipidemia, unspecified I10 Essential (primary) hyperten carmelo M10.9 Gout, unspecified Office Visit 06/18/2021 8:30a [facility] Jose Roberto Marmolejo M. D. M31.6 Other giant cell arteritis Z23 Encounter for immunization Office Visit 05/21/2021 11:45a [facility] Jose Roberto Marmolejo M. D. M31.6 Other giant cell arteritis Office Visit 05/07/2021 11:45a [facility] Jose Roberto Marmolejo M. D. M54.12 Radiculopathy, cervical region M31.6 Other giant cell arteritis Office Visit 05/02/2021 8:30a [facility] Jose Roberto Marmolejo M. D. M54.12 Radiculopathy, cervical region Office Visit 04/23/2021 3:20p [facility] Jose Roberto Marmolejo M. D. E11.9 Type 2 diabetes mellitus without complications F02.80 Dementia in oth diseases [facility] elswhr w/o behavrl disturb E78.5 Hyperlipidemia, [...] Roberto Marmolejo M.D. 07/22/2021 E78.5 Hyperlipidemia, unspecified [facility] Jose Roberto granados M.D. 07/22/2021 [...] Roberto Marmolejo M.D. 04/23/2021 E78.5 Hyperlipidemia, unspecified [facility] Jose Roberto granados M.D. 04/23/2021 I10 Essential (primary) hypertension Jose Roberto Marmolejo M.D. 04/23/2021 M10.9 Gout, unspecified Richard Marmolejo M.D. Plan of Treatment Future Appointment(s):* 10/28/2021 8:30 am - Jose Roberto Marmolejo M.D. at [facility] Functional Status Description No Information Available Mental Status Description No Information Available Referrals Refer to Dr Reason for Referral Status Appt Date Joe Whipple M.D. right temporal artery biopsy for swelling wi th pain Sent 05/08/[address] [place] [address], [address] [place] [address] [phone]
--- OUTSIDE RECORDS SUMMARY | 2021-07-25 09:28 | CCD | Continuity of Care Document ---
Author Author Zofia MARMOLEJO M.D. Organization Unknown Address [address] [address] Phone [phone] Problems Active Problems Provider Date Hyperlipidemia Jose [...] CPT Code Status Date Vaccine Lot # [id number] Given 06/18/2021 Influenza Virus Vaccine, Quadrivalent, Slit Virus, Im Use 3Y & Up [id number] 74794 Given 06/10/2020 Influenza Virus Vaccine, Quadrivalent, Slit Virus, Im Use 3Y & Up [id number] 04715 Given 09/05/2019 Influenza Virus Vaccine, Quadrivalent, Slit Virus, Im Use 3Y & Up [id number] Vital Signs Date Vital Result Comment 06/18/2021 10:11am BP Systolic 122 mmHg BP Diastolic 78 mmHg Body Temperature 97.3 F Heart Rate 56 /min Respiratory Rate 16 /min Height 62 inches 5'2" Weight 189.00 lb [place] Body Weight 110 lb BMI (Body Mass Index) 34.6 kg/m2 O2 % BldC Oximetry 97 % 05/21/2021 11:49am BP Systolic 122 mmHg BP Diastolic 68 mmHg Body Temperature 97.9 F Heart Rate 58 /min Respiratory Rate 14 /min Height 62 inches 5'2" Weight 187.00 lb [place] Body Weight 110 lb BMI (Body Mass Index) 34.2 kg/m2 O2 % BldC Oximetry 98 % Results Test Acquired Date Facility Test Result H/L Range Note Laboratory test finding 06/18/2021 [facility] Sedimentation Rate 14 0-20 Laboratory test finding 05/21/2021 [facility] Sedimentation Rate 14 0-20 Laboratory test finding 05/07/2021 [facility] Sedimentation Rate 25 High 0-20 Istat Chem8+ Panel 05/01/2021 [facility] (I nterface) [phone] iSTAT HCT 39.0 % Normal 38.0-51.0 iSTAT Glucose 107 mg/dL High 70-105 iSTAT Sodium 141 mEq/L Normal 136-145 iSTAT Potassium 4.4 mEq/L Normal 3.5-5.1 iSTAT CA++ 4.8 mg/dL Normal 4.5-5.3 iSTAT Chloride 106 mEq/L Normal 98-109 iSTAT Co2 24.0 MM/L Normal 23.0-27.0 iSTAT BUN 32 mg/dL High 8-26 iSTAT Creatinine 1.3 mg/dL Normal 0.6-1.3 Laboratory test finding 05/01/2021 [facility] (Interface) [phone] C Reactive Protein Quantitativ 0.47 mg/dL High 0 .00-0.30 CBC With Differential 05/01/2021 [facility] (Interface) [phone] White Blood Count 10.1 10 High 4.0-10.0 [...] 36.0-66.0 Lymph % 25.4 % Normal 24.0-44.0 [place] % 7.2 % Normal 2.0-8.0 Eos % 1.3 % Normal 0.0-3.0 Baso % 0.4 % Normal 0.0-1.0 Immature Granulocyte % 0.4 % Normal 0-3.0 Nucleated Red Blood Cell % 0.0 % Normal 0-0 Neutrophils # 6.6 10 Normal 1.5-8.5 Lymph # 2.6 10 Normal 1.5-5.0 [place] # 0.7 10 Normal 0.0-0.8 Eos # 0.1 10 Normal 0.0-0.5 Baso # 0.0 10 Normal 0.0-0.2 Laboratory test finding 05/01/2021 [facility] (Interface) [phone] Erythrocyte Sedimentation Rate 49 mm/hr High 0 [...] eGFR 63 # Calc 2 eGFR Non-Afr. [place] 54 # Calc 3 Lipid Panel 04/23/2021 [...] diabetes: <7.0 Procedures Date Code Description Status 06/18/2021 49873 Office/Outpatient Established Mo d MDM 30-39 Min Completed 05/21/2021 23248 Office/Outpatient Established Mo d MDM 30-39 Min Completed 05/07/2021 71667 Office/Outpatient Established Mo d MDM 30-39 Min Completed 05/02/2021 24500 Office/Outpatient Established Mo d MDM 30-39 Min Completed 04/23/2021 47766 Office/Outpatient Established Mo d MDM 30-39 Min Completed 03/02/2019 [id number] Mammogram Completed Medical Devices Description No Information Available Encounters Type Date Location Provider Dx Diagnosis Office Visit 06/18/2021 8:30a [place] [facility] Jose Roberto Marmolejo M. D. M31.6 Other giant cell arteritis Z23 Encounter for immunization Office Visit 05/21/2021 11:45a [place] [facility] Jose Roberto Marmolejo M. D. M31.6 Other giant cell arteritis Office Visit 05/07/2021 11:45a [facility] [facility] Jose Roberto Marmolejo M. D. M54.12 Radiculopathy, cervical region M31.6 Other giant cell arteritis Office Visit 05/02/2021 8:30a [facility] Jose Roberto Marmolejo M. D. M54.12 Radiculopathy, cervical region Office Visit 04/23/2021 3:20p [facility] [facility] Jose Roberto Marmolejo M. D. 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 04/23/2021 E78.5 [facility], [facility] 04/23/2021 I10 Essential (primary) hypertension Jose Roberto Marmolejo M.D. 04/23/2021 M10.9 Gout, unspecified Richard Marmolejo M.D. Plan of Treatment Future Appointment(s):* 07/22/2021 9:45 am - Jose Roberto Marmolejo M.D. at [facility] * 07/29/2021 9:00 am - Jose Roberto Marmolejo M.D. at [facility] Functional Status Description No Information Available Mental Status Description No Information Available Referrals Refer to Dr Reason for Referral Status Appt Date Joe Whipple M.D. right temporal artery biopsy for swelling wi th pain Sent 05/08/[address] [place] [address], [address] [place] [id number] [phone]
--- OUTSIDE RECORDS SUMMARY | 2021-07-25 09:28 | CCD | Continuity of Care Document ---
Author Author Zofia MARMOLEJO M.D. Organization Unknown Address [address] [address] Phone [phone] Problems Active Problems Provider Date Hyperlipidemia Jose [...] Qnty Indications Ordering Provide r Date Prednisone 20mg Tablets 2 tabs po qd 60tabs Jose Roberto Marmolejo M.D. 05/07/2021 Atorvastatin Calcium 80mg Tablets take one tablet [...] 400mg Tablets 1 by mouth every day Unknown History Medications Prednisone 50mg Tablets 1 p.o . qd 7tabs Jose Roberto Marmolejo M.D. 05/01/2021 - 05/07/2021 Immunizations CPT Code Status Date Vaccine Lot # [id number] Given 06/10/2020 Influenza Virus Vaccine, Quadrivalent, Slit Virus, Im Use 3Y & Up [id number] 02077 Given 09/05/2019 Influenza Virus Vaccine, Quadrivalent, Slit Virus, Im Use 3Y & Up [id number] Vital Signs Date Vital Result Comment 05/07/2021 12:04pm BP Systolic 124 mmHg BP Diastolic 78 mmHg Body Temperature 97.5 F Heart Rate 56 /min Respiratory Rate 16 /min Height 62 inches 5'2" Weight 184.00 lb [place] Body Weight 110 lb BMI (Body Mass Index) 33.7 kg/m2 O2 % BldC Oximetry 96 % 05/02/2021 8:50am BP Systolic 114 mmHg BP Diastolic 76 mmHg Body Temperature 97.5 F Heart Rate 80 /min Respiratory Rate 16 /min Height 62 inches 5'2" Weight 180.00 lb [place] Body Weight 110 lb BMI (Body Mass Index) 32.9 kg/m2 O2 % BldC Oximetry 95 % Results Test Acquired Date Facility Test Result H/L Range Note Laboratory test finding 05/07/2021 [facility] Sedimentation Rate 25 High 0-20 Istat Chem8+ Panel 05/01/2021 [facility]) [phone] iSTAT HCT 39.0 % Normal 38.0-51.0 iSTAT Glucose 107 mg/dL High 70-105 iSTAT Sodium 141 mEq/L Normal 136-145 iSTAT Potassium 4.4 mEq/L Normal 3.5-5.1 iSTAT CA++ 4.8 mg/dL Normal 4.5-5.3 iSTAT Chloride 106 mEq/L Normal 98-109 iSTAT Co2 24.0 MM/L Normal 23.0-27.0 iSTAT BUN 32 mg/dL High 8-26 iSTAT Creatinine 1.3 mg/dL Normal 0.6-1.3 Laboratory test finding 05/01/2021 [facility] (Interface) [phone] C Reactive Protein Quantitativ 0.47 mg/dL High 0 .00-0.30 CBC With Differential 05/01/2021 [facility] (Interface) [phone] White Blood Count 10.1 10 High 4.0-10.0 [...] 36.0-66.0 Lymph % 25.4 % Normal 24.0-44.0 [place] % 7.2 % Normal 2.0-8.0 Eos % 1.3 % Normal 0.0-3.0 Baso % 0.4 % Normal 0.0-1.0 Immature Granulocyte % 0.4 % Normal 0-3.0 Nucleated Red Blood Cell % 0.0 % Normal 0-0 Neutrophils # 6.6 10 Normal 1.5-8.5 Lymph # 2.6 10 Normal 1.5-5.0 [place] # 0.7 10 Normal 0.0-0.8 Eos # 0.1 10 Normal 0.0-0.5 Baso # 0.0 10 Normal 0.0-0.2 Laboratory test finding 05/01/2021 [facility] (Interface) [phone] Erythrocyte Sedimentation Rate 49 mm/hr High 0 [...] eGFR 63 # Calc 2 eGFR Non-Afr. Portuguese 54 # Calc 3 Lipid Panel 04/23/2021 [...] diabetes: <7.0 Procedures Date Code Description Status 05/07/2021 66462 Office/Outpatient Established Mo d MDM 30-39 Min Completed 05/02/2021 51751 Office/Outpatient Established Mo d MDM 30-39 Min Completed 04/23/2021 05839 Office/Outpatient Established Mo d MDM 30-39 Min Completed 03/02/2019 [id number] Mammogram Completed Medical Devices Description No Information Available Encounters Type Date Location Provider Dx Diagnosis Office Visit 05/07/2021 11:45a [place] [facility] Jose Roberto Marmolejo M. D. M54.12 Radiculopathy, cervical region M31.6 Other giant cell arteritis Office Visit 05/02/2021 8:30a [place] [facility] Jose Roberto Marmolejo M. D. M54.12 Radiculopathy, cervical region Office Visit 04/23/2021 3:20p [place] [facility] Jose Roberto Marmolejo M. D. 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 05/07/2021 M31.6 Other giant cell arteritis [place] Jose Roberto berger M.D. 05/02/2021 M54.12 Radiculopathy, cervical region Jose Roberto Schmidt M.D. 04/23/2021 E11.9 Type 2 diabetes mellitus without complications Jose Roberto Marmolejo M.D. 04/23/2021 F02.80 Dementia in other di seases classified elsewhere without behavioral disturbance Jose Roberto Marmolejo M.D. 04/23/2021 E78.5 Hyperlipidemia, unspecified [facility] Jose Roberto granados M.D. 04/23/2021 I10 Essential (primary) hypertension Jose Roberto Marmolejo M.D. 04/23/2021 M10.9 Gout, unspecified Richard Marmolejo M.D. Plan of Treatment Future Appointment(s):* 05/21/2021 11:45 am - Jose Roberto Marmolejo M.D. at [facility] * 07/29/2021 9:00 am - Jose Roberto Marmolejo M.D. at [facility] Functional Status Description No Information Available Mental Status Description No Information Available Referrals Refer to Reason for Referral Status Appt Date Joe Whipple M.D. right temporal artery biopsy for swelling wi th pain Sent 05/08/[address] [place] [address], [address] [place] [id number] [phone]
--- OUTSIDE RECORDS SUMMARY | 2021-07-25 09:28 | CCD | Continuity of Care Document ---
Author Author Zofia CHA PA Organization Unknown Address [address] [facility], [address] [place] [address] Phone [phone] Care Team Providers Care Statistical Methods Teacher Name Role Phone Jagdish Garg M.D. AUTM [phone] Jose Roberto Marmolejo M.D. AUTM [phone] Problems Active Problems Provider Date Proteinuria Katarina [...] lb BMI (Body Mass Index) 33.3 kg/m2 [place] Body Weight 110 lb Weight 82.555 kg BSA (Body Surface Area) 1.84 m2 05/08/2021 2:48pm BP Systolic 164 mmHg BP Diastolic 80 mmHg Heart Rate 65 /min Body Temperature 98.4 F Height 62 inches 5'2" Weight 184.12 lb BMI (Body Mass Index) 33.7 kg/m2 [place] Body Weight 110 lb Weight 83.519 kg BSA (Body Surface Area) 1.85 m2 Results Test Acquired Date Facility Test Result H/L Range Note Laboratory test finding 05/08/2021 [facility] [address] [place] [address] [phone] Pathology Request For Service (SEE NOTE) 1 [...] RIGHT TEMPORAL ARTERY BIOPSY Scheduled 05/08/2021 [address] [place] [address] [phone]
--- OUTSIDE RECORDS SUMMARY | 2021-07-25 09:28 | CCD | Continuity of Care Document ---
Author Author Zofia MARMOLEJO M.D. Organization Unknown Address [address] [address] Phone [phone] Problems Active Problems Provider Date Hyperlipidemia Jose [...] CPT Code Status Date Vaccine Lot # [id number] Given 06/10/2020 Influenza Virus Vaccine, Quadrivalent, Slit Virus, Im Use 3Y & Up [id number] 65256 Given 09/05/2019 Influenza Virus Vaccine, Quadrivalent, Slit Virus, Im Use 3Y & Up [id number] Vital Signs Date Vital Result Comment 05/21/2021 11:49am BP Systolic 122 mmHg BP Diastolic 68 mmHg Body Temperature 97.9 F Heart Rate 58 /min Respiratory Rate 14 /min Height 62 inches 5'2" Weight 187.00 lb [place] Body Weight 110 lb BMI (Body Mass Index) 34.2 kg/m2 O2 % BldC Oximetry 98 % 05/07/2021 12:04pm BP Systolic 124 mmHg BP Diastolic 78 mmHg Body Temperature 97.5 F Heart Rate 56 /min Respiratory Rate 16 /min Height 62 inches 5'2" Weight 184.00 lb [place] Body Weight 110 lb BMI (Body Mass Index) 33.7 kg/m2 O2 % BldC Oximetry 96 % Results Test Acquired Date Facility Test Result H/L Range Note Laboratory test finding 05/21/2021 [facility] Sedimentation Rate 14 0-20 Laboratory test finding 05/07/2021 [facility] Sedimentation Rate 25 High 0-20 Istat Chem8+ Panel 05/01/2021 [facility] (I nterce) [phone] iSTAT HCT 39.0 % Normal 38.0-51.0 iSTAT Glucose 107 mg/dL High 70-105 iSTAT Sodium 141 mEq/L Normal 136-145 iSTAT Potassium 4.4 mEq/L Normal 3.5-5.1 iSTAT CA++ 4.8 mg/dL Normal 4.5-5.3 iSTAT Chloride 106 mEq/L Normal 98-109 iSTAT Co2 24.0 MM/L Normal 23.0-27.0 iSTAT BUN 32 mg/dL High 8-26 iSTAT Creatinine 1.3 mg/dL Normal 0.6-1.3 Laboratory test finding 05/01/2021 [facility] (Interface) [phone] C Reactive Protein Quantitativ 0.47 mg/dL High 0 .00-0.30 CBC With Differential 05/01/2021 [facility] (Interface) [phone] White Blood Count 10.1 10 High 4.0-10.0 [...] 36.0-66.0 Lymph % 25.4 % Normal 24.0-44.0 [place] % 7.2 % Normal 2.0-8.0 Eos % 1.3 % Normal 0.0-3.0 Baso % 0.4 % Normal 0.0-1.0 Immature Granulocyte % 0.4 % Normal 0-3.0 Nucleated Red Blood Cell % 0.0 % Normal 0-0 Neutrophils # 6.6 10 Normal 1.5-8.5 Lymph # 2.6 10 Normal 1.5-5.0 [place] # 0.7 10 Normal 0.0-0.8 Eos # 0.1 10 Normal 0.0-0.5 Baso # 0.0 10 Normal 0.0-0.2 Laboratory test finding 05/01/2021 [facility] ([facility]) [phone] Erythrocyte Sedimentation Rate 49 mm/hr High 0 [...] eGFR 63 # Calc 2 eGFR Non-Afr. [place] 54 # Calc 3 Lipid Panel 04/23/2021 [...] <7.0 Procedures Date Code Description Status 05/21/2021 94298 Office/Outpatient Established Mo d MDM 30-39 Min Completed 05/07/2021 12056 Office/Outpatient Established Mo d MDM 30-39 Min Completed 05/02/2021 90083 Office/Outpatient Established Mo d MDM 30-39 Min Completed 04/23/2021 61679 Office/Outpatient Established Mo d MDM 30-39 Min Completed 03/02/2019 [id number] Mammogram Completed Medical Devices Description No Information Available Encounters Type Date Location Provider Dx Diagnosis Office Visit 05/21/2021 11:45a [place] [facility] Jose Roberto Marmolejo M. D. M31.6 Other giant cell arteritis Office Visit 05/07/2021 11:45a [place] [facility] Jose Roberto Marmolejo M. D. M54.12 Radiculopathy, cervical region M31.6 Other giant cell arteritis Office Visit 05/02/2021 8:30a [place] [facility] Jose Roberto Marmolejo M. D. M54.12 Radiculopathy, cervical region Office Visit 04/23/2021 3:20p [place] [facility] Jose Roberto Mramolejo M. D. E11.9 Type 2 diabetes mellitus [...] Roberto Marmolejo M.D. 04/23/2021 E78.5 Hyperlipidemia, unspecified [facility] hel[facility] Roberto maynard M.D. 04/23/2021 I10 Essential (primary) hypertension Jose Roberto Marmolejo M.D. 04/23/2021 M10.9 Gout, unspecified Richard Marmolejo M.D. Plan of Treatment Future Appointment(s):* 06/18/2021 8:30 am - Jose Roberto Marmolejo M.D. at [facility] * 07/29/2021 9:00 am - Jose Roberto Marmolejo M.D. at [facility] Functional Status Description No Information Available Mental Status Description No Information Available Referrals Refer to Dr Reason for Referral Status Appt Date Joe Whipple M.D. right temporal artery biopsy for swelling wi th pain Sent 05/08/[address] [place] [address], [address] [place], [place] [id number] [phone]
--- OUTSIDE RECORDS SUMMARY | 2021-07-25 09:28 | CCD | Continuity of Care Document ---
Author Author Zofia MARMOLEJO M.D. Organization Unknown Address [address] [place] [address] Phone [phone] Problems Active Problems Provider Date Hyperlipidemia Jose [...] Tablets 1 by mouth every day 90tabs JoseR oberto Marmolejo M.D. History Medications Prednisone 20mg Tablets 2 tabs po qd 60tabs Jose Roberto Marmolejo M.D. 05/07/2021 - Prednisone 50mg Tablets 1 p.o . qd 7tabs Jose Roberto Marmolejo M.D. 05/01/2021 - 05/07/2021 Immunizations CPT Code Status Date Vaccine Lot # [id number] Given 06/18/2021 Influenza Virus Vaccine, Quadrivalent, Slit Virus, Im Use 3Y & Up [id number] 65868 Given 06/10/2020 Influenza Virus Vaccine, Quadrivalent, Slit Virus, Im Use 3Y & Up [id number] 90847 Given 09/05/2019 Influenza Virus Vaccine, Quadrivalent, Slit Virus, Im Use 3Y & Up [id number] Vital Signs Date Vital Result Comment 07/22/2021 9:34am BP Systolic 124 mmHg BP Diastolic 76 mmHg Body Temperature 97.8 F Heart Rate 66 /min Respiratory Rate 12 /min Height 62 inches 5'2" Weight 193.00 lb [place] Body Weight 110 lb BMI (Body Mass Index) 35.3 kg/m2 O2 % BldC Oximetry 94 % 06/18/2021 10:11am BP Systolic 122 mmHg BP Diastolic 78 mmHg Body Temperature 97.3 F Heart Rate 56 /min Respiratory Rate 16 /min Height 62 inches 5'2" Weight 189.00 lb [place] Body Weight 110 lb BMI (Body Mass [...] [facility] Sedimentation Rate-Wester[place] 11 mm/hr 0-40 CMP 07/22/2021 [facility] Glu 148 mg/dL High [...] Gap 16 mmol/L eGFR 50 # Calc 2 eGFR Non-Afr. [place] 44 # Calc 3 Laboratory test finding 06/18/2021 [facility] Sedimentation Rate 14 0-20 Laboratory test finding 05/21/2021 [facility] Sedimentation Rate 14 0-20 Laboratory test finding 05/07/2021 [facility] Sedimentation Rate 25 High 0-20 Laboratory test finding 05/01/2021 [facility] [phone] C Reactive Protein Quantitativ 0.47 mg/dL High 0 .00-0.30 Laboratory test finding 05/01/2021 [facility] ([facility]) [phone] Erythrocyte Sedimentation Rate 49 mm/hr High 0 -30 CBC With Differential 05/01/2021 [facility] ([facility]) [phone] White Blood Count 10.1 10 High 4.0-10.0 [...] 36.0-66.0 Lymph % 25.4 % Normal 24.0-44.0 [place] % 7.2 % Normal 2.0-8.0 Eos % 1.3 % Normal 0.0-3.0 Baso % 0.4 % Normal 0.0-1.0 Immature Granulocyte % 0.4 % Normal 0-3.0 Nucleated Red Blood Cell % 0.0 % Normal 0-0 Neutrophils # 6.6 10 Normal 1.5-8.5 Lymph # 2.6 10 Normal 1.5-5.0 [place] # 0.7 10 Normal 0.0-0.8 Eos # 0.1 10 Normal 0.0-0.5 Baso # 0.0 10 Normal 0.0-0.2 Istat Chem8+ Panel 05/01/2021 [facility] ([facility]face) [phone] iSTAT HCT 39.0 % Normal 38.0-51.0 iSTAT [...] Gap 23 mmol/L eGFR 63 # Calc 4 eGFR Non-Afr. [place] 54 # Calc 5 Lipid Panel 04/23/2021 [facility] Chol 281 mg/dL [...] NE Hemoglobin A1c 6.7 % High 4.8-5.6 6 1 CHRONIC KIDNEY DISEASE STAGI NG PER [...] YEARS EXCLUSIVE. 2 CKD-EPI 3 CKD-EPI 4 CKD-EPI 5 CKD-EPI 6 Prediabetes: 5.7 - 6.4 Diabetes: >6.4 Glycemic control for adults with diabetes: <7.0 Procedures Date Code Description Status 07/22/2021 71826 Office/Outpatient Established Mo d MDM 30-39 Min Completed 06/18/2021 15886 Office/Outpatient Established Mo d MDM 30-39 Min Completed 05/21/2021 58436 Office/Outpatient Established Mo d MDM 30-39 Min Completed 05/07/2021 16829 Office/Outpatient Established Mo d MDM 30-39 Min Completed 05/02/2021 21236 Office/Outpatient Established Mo d MDM 30-39 Min Completed 04/23/2021 29422 Office/Outpatient Established Mo d MDM 30-39 Min Completed 03/02/2019 [id number] Mammogram Completed Medical Devices Description No Information Available Encounters Type Date Location Provider Dx Diagnosis Office Visit 07/22/2021 9:45a [facility] Jose Roberto Marmolejo M. D. 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 D. M31.6 Other giant cell arteritis Z23 Encounter for immunization Office Visit 05/21/2021 11:45a [facility] Jose Roberto Marmolejo M. D. M31.6 Other giant cell arteritis Office Visit 05/07/2021 11:45a [facility] Jose Roberto Marmolejo M. D. M54.12 Radiculopathy, cervical region M31.6 Other giant cell arteritis Office Visit 05/02/2021 8:30a [facility] Jose Roberto Marmolejo M. D. M54.12 Radiculopathy, cervical region Office Visit 04/23/2021 3:20p [facility] Jose Roberto Marmolejo M. D. E11.9 Type 2 diabetes mellitus without complications F02.80 Dementia in oth diseases [facility] el[facility] w/o behavrl disturb E78.5 Hyperlipidemia, unspecified I10 Essential (primary) hyperten carmelo M10.9 Gout, unspecified Assessments Date Code Description Provider 07/22/2021 M31.6 Other giant cell arteritis Faustino Jose Roberto berger M.D. 07/22/2021 E11.9 Type 2 diabetes mellitus without complications Jose Roberto Marmolejo M.D. 07/22/2021 F02.80 Dementia in other di seases classified elsewhere without behavioral disturbance Joes Roberto Marmolejo M.D. 07/22/2021 E78.5 Hyperlipidemia, unspecified [facility] Jose Roberto granados M.D. 07/22/2021 I10 Essential [...] Roberto Marmolejo M.D. 04/23/2021 E78.5 Hyperlipidemia, unspecified [facility] Jose Roberto granados M.D. 04/23/2021 I10 Essential (primary) hypertension Jose Roberto Marmolejo M.D. 04/23/2021 M10.9 Gout, unspecified Richard Marmolejo M.D. Plan of Treatment Future Appointment(s):* 10/28/2021 8:30 am - Jose Roberto Marmolejo M.D. at [facility] Functional Status Description No Information Available Mental Status Description No Information Available Referrals Refer to Reason for Referral Status Appt Date Joe Whipple M.D. right temporal artery biopsy for swelling wi th pain Sent 05/08/2021 [address] [facility], [address] [place] [address] [phone]
--- OUTSIDE RECORDS SUMMARY | 2021-07-25 09:28 | CCD | Continuity of Care Document ---
Author Author Zofia CHA PA Organization Unknown Address [address] [facility], [address] [place] [address] Phone [phone] Care Team Providers Care Water Resources Project Manager Name Role Phone Jagdish Garg M.D. AUTM [phone] Jose Roberto Marmolejo M.D. AUTM [phone] Problems Active Problems Provider Date Proteinuria Katarina [...] lb BMI (Body Mass Index) 33.3 kg/m2 [place] Body Weight 110 lb Weight 82.555 kg BSA (Body Surface Area) 1.84 m2 05/08/2021 2:48pm BP Systolic 164 mmHg BP Diastolic 80 mmHg Heart Rate 65 /min Body Temperature 98.4 F Height 62 inches 5'2" Weight 184.12 lb BMI (Body Mass Index) 33.7 kg/m2 [place] Body Weight 110 lb Weight 83.519 kg BSA (Body Surface Area) 1.85 m2 Results Test Acquired Date Facility Test Result H/L Range Note Laboratory test finding 05/08/2021 [facility] [address] [place] [address] [phone] Pathology Request For Service (SEE NOTE) 1 [...] RIGHT TEMPORAL ARTERY BIOPSY Scheduled 05/08/2021 [address] [place] [address] [phone]
--- OUTSIDE RECORDS SUMMARY | 2021-07-25 09:29 | CCD | Continuity of Care Document ---
Author Author Zofia MARMOLEJO M.D. Organization Unknown Address [address] [address] Phone [phone] Problems Active Problems Provider Date Hyperlipidemia Jose [...] Qnty Indications Ordering Provide r Date Prednisone 50mg Tablets 1 p.o . qd 7tabs Jose Roberto Marmolejo M.D. 05/01/2021 Atorvastatin Calcium 80mg Tablets take one tablet [...] Tablets 1 by mouth every day Unknown Immunizations CPT Code Status Date Vaccine Lot # [id number] Given 06/10/2020 Influenza Virus Vaccine, Quadrivalent, Slit Virus, Im Use 3Y & Up [id number] 73221 Given 09/05/2019 Influenza Virus Vaccine, Quadrivalent, Slit Virus, Im Use 3Y & Up [id number] Vital Signs Date Vital Result Comment 05/07/2021 12:04pm BP Systolic 124 mmHg BP Diastolic 78 mmHg Body Temperature 97.5 F Heart Rate 56 /min Respiratory Rate 16 /min Height 62 inches 5'2" Weight 184.00 lb [place] Body Weight 110 lb BMI (Body Mass Index) 33.7 kg/m2 O2 % BldC Oximetry 96 % 05/02/2021 8:50am BP Systolic 114 mmHg BP Diastolic 76 mmHg Body Temperature 97.5 F Heart Rate 80 /min Respiratory Rate 16 /min Height 62 inches 5'2" Weight 180.00 lb [place] Body Weight 110 lb BMI (Body Mass Index) 32.9 kg/m2 O2 % BldC Oximetry 95 % Results Test Acquired Date Facility Test Result H/L Range Note Laboratory test finding 05/07/2021 [facility] Sedimentation Rate 25 High 0-20 Istat Chem8+ Panel 05/01/2021 [facility] [phone] iSTAT HCT 39.0 % Normal 38.0-51.0 iSTAT Glucose 107 mg/dL High 70-105 iSTAT Sodium 141 mEq/L Normal 136-145 iSTAT Potassium 4.4 mEq/L Normal 3.5-5.1 iSTAT CA++ 4.8 mg/dL Normal 4.5-5.3 iSTAT Chloride 106 mEq/L Normal 98-109 iSTAT Co2 24.0 MM/L Normal 23.0-27.0 iSTAT BUN 32 mg/dL High 8-26 iSTAT Creatinine 1.3 mg/dL Normal 0.6-1.3 Laboratory test finding 05/01/2021 [facility] (Interface) [phone] C Reactive Protein Quantitativ 0.47 mg/dL High 0 .00-0.30 CBC With [facility] [phone] White Blood Count 10.1 10 High 4.0-10.0 [...] 36.0-66.0 Lymph % 25.4 % Normal 24.0-44.0 [place] % 7.2 % Normal 2.0-8.0 Eos % 1.3 % Normal 0.0-3.0 Baso % 0.4 % Normal 0.0-1.0 Immature Granulocyte % 0.4 % Normal 0-3.0 Nucleated Red Blood Cell % 0.0 % Normal 0-0 Neutrophils # 6.6 10 Normal 1.5-8.5 Lymph # 2.6 10 Normal 1.5-5.0 [place] # 0.7 10 Normal 0.0-0.8 Eos # 0.1 10 Normal 0.0-0.5 Baso # 0.0 10 Normal 0.0-0.2 Laboratory test finding 05/01/2021 [facility] (Interface) [phone] Erythrocyte Sedimentation Rate 49 mm/hr High 0 [...] eGFR 63 # Calc 2 eGFR Non-Afr. [place] 54 # Calc 3 Lipid Panel 04/23/2021 [...] <7.0 Procedures Date Code Description Status 05/07/2021 15992 Office/Outpatient Established Mo d MDM 30-39 Min Completed 05/02/2021 89087 Office/Outpatient Established Mo d MDM 30-39 Min Completed 04/23/2021 57151 Office/Outpatient Established Mo d MDM 30-39 Min Completed 03/02/2019 [id number] Mammogram Completed Medical Devices Description No Information Available Encounters Type Date Location Provider Dx Diagnosis Office Visit 05/07/2021 11:45a [facility] Jose Roberto Marmolejo M. D. M54.12 Radiculopathy, cervical region M31.6 Other giant cell arteritis Office Visit 05/02/2021 8:30a [facility] Jose Roberto Marmolejo M. D. M54.12 Radiculopathy, cervical region Office Visit 04/23/2021 3:20p [facility] Jose Roberto Marmolejo M. D. E11.9 [...] berger M.D. 05/02/2021 M54.12 Radiculopathy, cervical region M Jose Roberto mcdaniel M.D. 04/23/2021 E11.9 Type 2 diabetes mellitus without complications Jose Roberto Marmolejo M.D. 04/23/2021 F02.80 Dementia in other di seases classified elsewhere without behavioral disturbance Jose Roberto Marmolejo M.D. 04/23/2021 E78.5 [facility], [facility] 04/23/2021 I10 Essential (primary) hypertension Jos eRoberto Marmolejo M.D. 04/23/2021 M10.9 Gout, unspecified Richard Marmolejo M.D. Plan of Treatment Future Appointment(s):* 05/21/2021 11:45 am - Jose Roberto Marmolejo M.D. at [facility] * 07/29/2021 9:00 am - Jose Roberto Marmolejo M.D. at [facility] Functional Status Description No Information Available Mental Status Description No Information Available Referrals Refer to Reason for Referral Status Appt Date Joe Whipple M.D. right temporal artery biopsy for swelling wi th pain Sent 05/08/2021 [address] [facility], [address] [place] [address] [phone]
--- OUTSIDE RECORDS SUMMARY | 2021-07-25 09:29 | CCD | Continuity of Care Document ---
Author Author Zofia MEDELLIN M.D. Organization Unknown Address [address] [address] Phone [phone] Problems Active Problems Provider Date Hyperlipidemia Jose Roberto Medellin M.D. Onset: 9 Essential hypertension Jose Roberto Medellin M.D. Onset: 2018 Diabetes mellitus Jose Roberto Medellin M.D. Onset: 9 Rheumatoid arthritis Jose Roberto Medellin M.D. Onset: 01/04/20 19 Gout Jose Roberto Medellin M.D. Onset: 9 Vitamin D deficiency Jose Roberto Medellin M.D. Onset: 01/04/20 19 Coronary atherosclerosis Jose Roberto Medellin M.D. Onset: 05/2019 Sleep apnea Jose Roberto Medellin M.D. Onset: 9 Major depressive disorder Jose Roberto Medellin M.D. Onset: 05/2019 Social History Type Date Description Comments Sex Unknown ETOH Use Denies alcohol use Tobacco Use Start: Unknown Patient has never smoked Recreational Drug Use Never Used Drugs Allergies, Adverse Reactions, Alerts Description No Known Drug Allergies Medications Active Medications SIG Qnty Indications Ordering Provide r Date Atorvastatin Calcium 80mg Tablets take one tablet by mouth at bedtime 90tabs Jose Roberto Medellin M. D. 05/31/2019 Allopurinol 100mg Tablets 1 by mouth every day 90tabs Jose Roberto Medellin M.D. 02/22/20 19 Amlodipine Besylate 5mg Tablets 1 by mouth every day 90tabs Jose Roberto Medellin M.D. Enalapril Maleate 20mg Tablets 2 by mouth twice a day 180tabs Jose Roberto Medellin M.D. Metoprolol Tartrate 25mg Tablets take one tablet by mouth twice a day 180tabs Jose Roberto Medellin M .D. Metformin HCL 500mg Tablets take 1 tablet by mouth twice daily 180tabs Jose Roberto Medellin M.D. Freestyle Test Strips to test blood sugars bid Jose Roberto Medellin M.D. Aspirin Adult Low Dose 81mg Tablet s DR 1 by mouth every day Jose Roberto Medellin M.D. Vitamin D 2000Unit Tablets 1 by mouth every day Unknown Magnesium Oxide 400mg Tablets 1 by mouth every day Unknown Immunizations CPT Code Status Date Vaccine Lot # [id number] Given 06/10/2020 Influenza Virus Vaccine, Quadrivalent, Slit Virus, Im Use 3Y & Up [id number] 21748 Given 09/05/2019 Influenza Virus Vaccine, Quadrivalent, Slit Virus, Im Use 3Y & Up [id number] Vital Signs Date Vital Result Comment 04/23/2021 3:44pm BP Systolic 126 mmHg BP Diastolic 86 mmHg Body Temperature 97.7 F Heart Rate 60 /min Respiratory Rate 12 /min Height 62 inches 5'2" Weight 181.00 lb [place] Body Weight 110 lb BMI (Body Mass Index) 33.1 kg/m2 O2 % BldC Oximetry 98 % 06/10/2020 11:08am BP Systolic 126 mmHg BP Diastolic 84 mmHg Body Temperature 98.4 F Heart Rate 60 /min Respiratory Rate 14 /min Height 62 inches 5'2" Weight 175.00 lb [place] Body Weight 110 lb BMI (Body Mass Index) 32.0 kg/m2 O2 % BldC Oximetry 96 % Results Test Acquired Date Facility Test Result H/L Range Note CMP 04/23/2021 [facility] Glu 197 mg/dL High [...] eGFR 63 # Calc 2 eGFR Non-Afr. [place] Citizen 54 # Calc 3 Lipid Panel 04/23/2021 [...] diabetes: <7.0 Procedures Date Code Description Status 04/23/2021 26773 Office/Outpatient Established Mo d MDM 30-39 Min Completed 03/02/2019 [id number] Mammogram Completed Medical Devices Description No Information Available Encounters Type Date Location Provider Dx Diagnosis Office Visit 04/23/2021 3:20p [place] [facility] Jose Roberto Medellin M. D. E11.9 Type 2 diabetes mellitus without complications F02.80 Dementia in oth diseases cla ssd elswhr w/o behavrl disturb E78.5 Hyperlipidemia, unspecified I10 Essential (primary) hyperten carmelo M10.9 Gout, unspecified Assessments Date Code Description Provider 04/23/2021 E11.9 Type 2 diabetes mellitus without complications Jose Roberto Medellin M.D. 04/23/2021 F02.80 Dementia in other di seases classified elsewhere without behavioral disturbance Jose Roberto Medellin M.D. 04/23/2021 E78.5 Hyperlipidemia, unspecified [facility] Jose Roberto granados M.D. 04/23/2021 I10 Essential (primary) hypertension Jose Roberto Medellin M.D. 04/23/2021 M10.9 Gout, unspecified Richard Medellin M.D. Plan of Treatment Future Appointment(s):* 07/29/2021 9:00 am - Jose Roberto Medellin M.D. at [facility] Functional Status Description No Information Available Mental Status Description No Information Available Referrals Description No Information Available
--- OUTSIDE RECORDS SUMMARY | 2021-07-25 09:29 | CCD | Continuity of Care Document ---
Author Author Zofia MARMOLEJO M.D. Organization Unknown Address [address] [address] Phone [phone] Problems Active Problems Provider Date Hyperlipidemia Jose [...] CPT Code Status Date Vaccine Lot # [id number] Given 06/10/2020 Influenza Virus Vaccine, Quadrivalent, Slit Virus, Im Use 3Y & Up [id number] Given 09/05/2019 Influenza Virus Vaccine, Quadrivalent, Slit Virus, Im Use 3Y & Up [id number] Vital Signs Date Vital Result Comment 04/23/2021 3:44pm BP Systolic 126 mmHg BP Diastolic 86 mmHg Body Temperature 97.7 F Heart Rate 60 /min Respiratory Rate 12 /min Height 62 inches 5'2" Weight 181.00 lb [place] Body Weight 110 lb BMI (Body Mass Index) 33.1 kg/m2 O2 % BldC Oximetry 98 % 06/10/2020 11:08am BP Systolic 126 mmHg BP Diastolic 84 mmHg Body Temperature 98.4 F Heart Rate 60 /min Respiratory Rate 14 /min Height 62 inches 5'2" Weight 175.00 lb [place] Body Weight 110 lb BMI (Body Mass Index) 32.0 kg/m2 O2 % BldC Oximetry 96 % Results Test Acquired Date Facility Test Result H/L Range Note Laboratory test finding 05/01/2021 [facility] (Interface) [phone] C Reactive Protein Quantitativ 0.47 mg/dL High 0 .00-0.30 CBC With Differential 05/01/2021 [facility] (Interface) [phone] White Blood Count 10.1 10 High 4.0-10.0 [...] 36.0-66.0 Lymph % 25.4 % Normal 24.0-44.0 [place] % 7.2 % Normal 2.0-8.0 Eos % 1.3 % Normal 0.0-3.0 Baso % 0.4 % Normal 0.0-1.0 Immature Granulocyte % 0.4 % Normal 0-3.0 Nucleated Red Blood Cell % 0.0 % Normal 0-0 Neutrophils # 6.6 10 Normal 1.5-8.5 Lymph # 2.6 10 Normal 1.5-5.0 [place] # 0.7 10 Normal 0.0-0.8 Eos # 0.1 10 Normal 0.0-0.5 Baso # 0.0 10 Normal 0.0-0.2 Laboratory test finding 05/01/2021 [facility] (Interface) [phone] Erythrocyte Sedimentation Rate 49 mm/hr High 0 [...] eGFR 63 # Calc 2 eGFR Non-Afr. Citizen Of [place] 54 # Calc 3 Lipid Panel 04/23/2021 [...] diabetes: <7.0 Procedures Date Code Description Status 05/02/2021 20092 Office/Outpatient Established Mo d MDM 30-39 Min Completed 04/23/2021 54720 Office/Outpatient Established Mo d MDM 30-39 Min Completed 03/02/2019 [id number] Mammogram Completed Medical Devices Description No Information Available Encounters Type Date Location Provider Dx Diagnosis Office Visit 05/02/2021 8:30a [facility] Jose Roberto Marmolejo M. D. M54.12 Radiculopathy, cervical region Office Visit 04/23/2021 3:20p [facility] Jose Roberto Marmolejo M. D. E11.9 Type 2 diabetes mellitus without complications F02.80 Dementia in oth diseases cla ssd elswhr w/o behavrl disturb E78.5 Hyperlipidemia, unspecified I10 Essential (primary) hyperten carmelo M10.9 Gout, unspecified Assessments Date Code Description Provider 05/02/2021 M54.12 Radiculopathy, cervical region Jose Roberto Schmidt M.D. 04/23/2021 E11.9 Type 2 diabetes mellitus without complications Jose Roberto Marmolejo M.D. 04/23/2021 F02.80 Dementia in other di seases classified elsewhere without behavioral disturbance Jose Roberto Marmolejo M.D. 04/23/2021 E78.5 Hyperlipidemia, unspecified [facility] helJose Roberto maynard M.D. 04/23/2021 I10 Essential (primary) hypertension Jose Roberto Marmolejo M.D. 04/23/2021 M10.9 Gout, unspecified Richard Marmolejo M.D. Plan of Treatment Future Appointment(s):* 05/07/2021 11:45 am - Jose Roberto Marmolejo M.D. at [facility] * 07/29/2021 9:00 am - Jose Roberto Marmolejo M.D. at [facility] Functional Status Description No Information Available Mental Status Description No Information Available Referrals Refer to Reason for Referral Status Appt Date Joe Whipple M.D. right temporal artery biopsy for swelling wi th pain Sent [address] [facility], [address] [place] [address] [phone]
--- OUTSIDE RECORDS SUMMARY | 2021-07-25 09:29 | CCD | Continuity of Care Document ---
Author Author Zofia MARMOLEJO M.D. Organization Unknown Address [address] [address] Phone [phone] Problems Active Problems Provider Date Hyperlipidemia Jose [...] CPT Code Status Date Vaccine Lot # [id number] Given 06/10/2020 Influenza Virus Vaccine, Quadrivalent, Slit Virus, Im Use 3Y & Up [id number] Given 09/05/2019 Influenza Virus Vaccine, Quadrivalent, Slit Virus, Im Use 3Y & Up [id number] Vital Signs Date Vital Result Comment 05/02/2021 8:50am BP Systolic 114 mmHg BP Diastolic 76 mmHg Body Temperature 97.5 F Heart Rate 80 /min Respiratory Rate 16 /min Height 62 inches 5'2" Weight 180.00 lb [place] Body Weight 110 lb BMI (Body Mass Index) 32.9 kg/m2 O2 % BldC Oximetry 95 % 04/23/2021 3:44pm BP Systolic 126 mmHg BP Diastolic 86 mmHg Body Temperature 97.7 F Heart Rate 60 /min Respiratory Rate 12 /min Height 62 inches 5'2" Weight 181.00 lb [place] Body Weight 110 lb BMI (Body Mass Index) 33.1 kg/m2 O2 % BldC Oximetry 98 % Results Test Acquired Date Facility Test Result H/L Range Note Istat Chem8+ Panel 05/01/2021 [facility] ([facility]) [phone] iSTAT HCT 39.0 % Normal 38.0-51.0 iSTAT Glucose 107 mg/dL High 70-105 iSTAT Sodium 141 mEq/L Normal 136-145 iSTAT Potassium 4.4 mEq/L Normal 3.5-5.1 iSTAT CA++ 4.8 mg/dL Normal 4.5-5.3 iSTAT Chloride 106 mEq/L Normal 98-109 iSTAT Co2 24.0 MM/L Normal 23.0-27.0 iSTAT BUN 32 mg/dL High 8-26 iSTAT Creatinine 1.3 mg/dL Normal 0.6-1.3 Laboratory test finding 05/01/2021 [facility] (Interface) [phone] C Reactive Protein Quantitativ 0.47 mg/dL High 0 .00-0.30 CBC With Differential 05/01/2021 [facility] (Interface) [phone] White Blood Count 10.1 10 High 4.0-10.0 [...] 36.0-66.0 Lymph % 25.4 % Normal 24.0-44.0 [place] % 7.2 % Normal 2.0-8.0 Eos % 1.3 % Normal 0.0-3.0 Baso % 0.4 % Normal 0.0-1.0 Immature Granulocyte % 0.4 % Normal 0-3.0 Nucleated Red Blood Cell % 0.0 % Normal 0-0 Neutrophils # 6.6 10 Normal 1.5-8.5 Lymph # 2.6 10 Normal 1.5-5.0 [place] # 0.7 10 Normal 0.0-0.8 Eos # 0.1 10 Normal 0.0-0.5 Baso # 0.0 10 Normal 0.0-0.2 Laboratory test finding 05/01/2021 [facility] (Interface) [phone] Erythrocyte Sedimentation Rate 49 mm/hr High 0 [...] eGFR 63 # Calc 2 eGFR Non-Afr. Spanish 54 # Calc 3 Lipid Panel 04/23/2021 [...] <7.0 Procedures Date Code Description Status 05/07/2021 53114 Office/Outpatient Established Mo d MDM 30-39 Min Completed 05/02/2021 75258 Office/Outpatient Established Mo d MDM 30-39 Min Completed 04/23/2021 13811 Office/Outpatient Established Mo d MDM 30-39 Min Completed 03/02/2019 [id number] Mammogram Completed Medical Devices Description No Information Available Encounters Type Date Location Provider Dx Diagnosis Office Visit 05/07/2021 11:45a [facility] Jose Roberto Marmolejo M. D. M54.12 Radiculopathy, cervical region M31.6 Other giant cell arteritis Office Visit 05/02/2021 8:30a [facility] Jose Roberto Marmolejo M. D. M54.12 Radiculopathy, cervical region Office Visit 04/23/2021 3:20p [facility] Jose Roberto Marmolejo M. D. 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 05/07/2021 M31.6 Other giant cell arteritis Faustino Jose Robreto berger M.D. 05/02/2021 M54.12 Radiculopathy, cervical region Jose Roberto Schmidt M.D. 04/23/2021 E11.9 Type 2 diabetes mellitus without complications Jose Roberto Marmolejo M.D. 04/23/2021 F02.80 Dementia in other di seases classified elsewhere without behavioral disturbance Jose Roberto Marmolejo M.D. 04/23/2021 E78.5 [facility], [facility] 04/23/2021 I10 Essential (primary) hypertension Jose Roberto Marmolejo M.D. 04/23/2021 M10.9 Gout, unspecified Richard Marmolejo M.D. Plan of Treatment Future Appointment(s):* 07/29/2021 9:00 am - Jose Roberto Marmolejo M.D. at [facility] Functional Status Description No Information Available Mental Status Description No Information Available Referrals Refer to Reason for Referral Status Appt Date Joe Whipple M.D. right temporal artery biopsy for swelling wi th pain Sent 05/08/[address] [place] [address], [address] [place] [address] [phone]
--- OUTSIDE RECORDS SUMMARY | 2021-07-25 09:29 | CCD | Continuity of Care Document ---
Author Author Zofia MEDELLIN M.D. Organization Unknown Address [address] [address] Phone [phone] Problems Active Problems Provider Date Hyperlipidemia Jose [...] 1 p.o . qd 7tabs Jose Roberto Medellin M.D. 05/01/2021 Atorvastatin Calcium 80mg Tablets take one tablet by mouth at bedtime 90tabs Jose Roberto Medellin M. D. 05/31/2019 Allopurinol 100mg Tablets 1 by mouth every day 90tabs Jose Roberto Medellin M.D. 02/22/20 19 Amlodipine Besylate 5mg Tablets 1 by mouth every day 90tabs Jose Roberto Medellin M.D. Enalapril Maleate 20mg Tablets 1 by [...] CPT Code Status Date Vaccine Lot # [id number] Given 06/10/2020 Influenza Virus Vaccine, Quadrivalent, Slit Virus, Im Use 3Y & Up [id number] Given 09/05/2019 Influenza Virus Vaccine, Quadrivalent, Slit Virus, Im Use 3Y & Up [id number] Vital Signs Date Vital Result Comment 04/23/2021 3:44pm BP Systolic 126 mmHg BP Diastolic 86 mmHg Body Temperature 97.7 F Heart Rate 60 /min Respiratory Rate 12 /min Height 62 inches 5'2" Weight 181.00 lb [place] Body Weight 110 lb BMI (Body Mass Index) 33.1 kg/m2 O2 % BldC Oximetry 98 % 06/10/2020 11:08am BP Systolic 126 mmHg BP Diastolic 84 mmHg Body Temperature 98.4 F Heart Rate 60 /min Respiratory Rate 14 /min Height 62 inches 5'2" Weight 175.00 lb [place] Body Weight 110 lb BMI (Body Mass Index) 32.0 kg/m2 O2 % BldC Oximetry 96 % Results Test Acquired Date Facility Test Result H/L Range Note Laboratory test finding 05/01/2021 [facility] (Interface) [phone] C Reactive Protein Quantitativ 0.47 mg/dL High 0 .00-0.30 CBC With Differential 05/01/2021 [facility] (Interface) [phone] White Blood Count 10.1 10 High 4.0-10.0 [...] 36.0-66.0 Lymph % 25.4 % Normal 24.0-44.0 [place] % 7.2 % Normal 2.0-8.0 Eos % 1.3 % Normal 0.0-3.0 Baso % 0.4 % Normal 0.0-1.0 Immature Granulocyte % 0.4 % Normal 0-3.0 Nucleated Red Blood Cell % 0.0 % Normal 0-0 Neutrophils # 6.6 10 Normal 1.5-8.5 Lymph # 2.6 10 Normal 1.5-5.0 [place] # 0.7 10 Normal 0.0-0.8 Eos # 0.1 10 Normal 0.0-0.5 Baso # 0.0 10 Normal 0.0-0.2 Laboratory test finding 05/01/2021 [facility] (Interface) [phone] Erythrocyte Sedimentation Rate 49 mm/hr High 0 [...] <7.0 Procedures Date Code Description Status 04/23/2021 58035 Office/Outpatient Established Mo d MDM 30-39 Min Completed 03/02/2019 [id number] Mammogram Completed Medical Devices Description No Information Available Encounters Type Date Location Provider Dx Diagnosis Office Visit 04/23/2021 3:20p [place] [facility] Jose Roberto Medellin M. D. E11.9 [...] Roberto Medellin M.D. 04/23/2021 E78.5 [facility], [facility] gran[facility]. 04/23/2021 I10 Essential (primary) hypertension Jose Roberto Medellin M.D. 04/23/2021 M10.9 Gout, unspecified Jaleel, Scot t H, M.D. Plan of Treatment Future Appointment(s):* 05/02/2021 8:30 am - Jose Roberto Medellin M.D. at [facility] * 05/07/2021 11:45 am - Jose Roberto Medellin M.D. at [place] [facility] * 07/29/2021 9:00 am - Jose Roberto Medellin M.D. at [facility] Functional Status Description No Information Available Mental Status Description No Information Available Referrals Refer to Dr Reason for Referral Status Appt Date Joe Whipple M.D. right temporal artery biopsy for swelling wi th pain Sent [address] [facility], [address] [place] [address] [phone]
--- OUTSIDE RECORDS SUMMARY | 2021-07-25 09:29 | CCD | Continuity of Care Document ---
Author Author Zofia MARMOLEJO M.D. Organization Unknown Address [address] [address] Phone [phone] Problems Active Problems Provider Date Hyperlipidemia Jose Roberto Marmolejo M.D. Onset: 9 Essential hypertension Jose Robetro Marmolejo M.D. Onset: 2018 Diabetes mellitus Jose [...] CPT Code Status Date Vaccine Lot # [id number] Given 06/10/2020 Influenza Virus Vaccine, Quadrivalent, Slit Virus, Im Use 3Y & Up [id number] Given 09/05/2019 Influenza Virus Vaccine, Quadrivalent, Slit Virus, Im Use 3Y & Up [id number] Vital Signs Date Vital Result Comment 05/02/2021 8:50am BP Systolic 114 mmHg BP Diastolic 76 mmHg Body Temperature 97.5 F Heart Rate 80 /min Respiratory Rate 16 /min Height 62 inches 5'2" Weight 180.00 lb [place] Body Weight 110 lb BMI (Body Mass Index) 32.9 kg/m2 O2 % BldC Oximetry 95 % 04/23/2021 3:44pm BP Systolic 126 mmHg BP Diastolic 86 mmHg Body Temperature 97.7 F Heart Rate 60 /min Respiratory Rate 12 /min Height 62 inches 5'2" Weight 181.00 lb [place] Body Weight 110 lb BMI (Body Mass Index) 33.1 kg/m2 O2 % BldC Oximetry 98 % Results Test Acquired Date Facility Test Result H/L Range Note Istat Chem8+ Panel 05/01/2021 [facility] ([facility]) [phone] iSTAT HCT 39.0 % Normal 38.0-51.0 iSTAT Glucose 107 mg/dL High 70-105 iSTAT Sodium 141 mEq/L Normal 136-145 iSTAT Potassium 4.4 mEq/L Normal 3.5-5.1 iSTAT CA++ 4.8 mg/dL Normal 4.5-5.3 iSTAT Chloride 106 mEq/L Normal 98-109 iSTAT Co2 24.0 MM/L Normal 23.0-27.0 iSTAT BUN 32 mg/dL High 8-26 iSTAT Creatinine 1.3 mg/dL Normal 0.6-1.3 Laboratory test finding 05/01/2021 [facility] (Interface) [phone] C Reactive Protein Quantitativ 0.47 mg/dL High 0 .00-0.30 CBC With Differential 05/01/2021 [facility] (Interface) [phone] White Blood Count 10.1 10 High 4.0-10.0 [...] 36.0-66.0 Lymph % 25.4 % Normal 24.0-44.0 [place] % 7.2 % Normal 2.0-8.0 Eos % 1.3 % Normal 0.0-3.0 Baso % 0.4 % Normal 0.0-1.0 Immature Granulocyte % 0.4 % Normal 0-3.0 Nucleated Red Blood Cell % 0.0 % Normal 0-0 Neutrophils # 6.6 10 Normal 1.5-8.5 Lymph # 2.6 10 Normal 1.5-5.0 [place] # 0.7 10 Normal 0.0-0.8 Eos # 0.1 10 Normal 0.0-0.5 Baso # 0.0 10 Normal 0.0-0.2 Laboratory test finding 05/01/2021 [facility] (Interface) [phone] Erythrocyte Sedimentation Rate 49 mm/hr High 0 [...] # Calc 2 eGFR Non-Afr. Citizen Of [place] 54 # Calc 3 Lipid Panel 04/23/2021 [...] <7.0 Procedures Date Code Description Status 05/02/2021 40705 Office/Outpatient Established Mo d MDM 30-39 Min Completed 04/23/2021 79917 Office/Outpatient Established Mo d MDM 30-39 Min Completed 03/02/2019 [id number] Mammogram Completed Medical Devices Description No Information Available Encounters Type Date Location Provider Dx Diagnosis Office Visit 05/02/2021 8:30a [facility] Jose Roberto Marmolejo M. D. M54.12 Radiculopathy, cervical region Office Visit 04/23/2021 3:20p [place] [facility] Jose Roberto Marmolejo M. D. E11.9 [...] Roberto Marmolejo M.D. 04/23/2021 E78.5 Hyperlipidemia, unspecified [facility] Roberto maynard M.D. 04/23/2021 I10 Essential (primary) hypertension Jose Roberto Marmolejo M.D. 04/23/2021 M10.9 Gout, unspecified Richard Marmolejo M.D. Plan of Treatment Future Appointment(s):* 05/07/2021 11:45 am - Jose Roberto Marmolejo M.D. at [facility] * 07/29/2021 9:00 am - Jose Roberto Marmolejo M.D. at [facility] Functional Status Description No Information Available Mental Status Description No Information Available Referrals Refer to Dr Reason for Referral Status Appt Date Joe Whipple M.D. right temporal artery biopsy for swelling wi th pain Sent 05/08/[address] [place] [address], [address] [place] [address] [phone]
--- OUTSIDE RECORDS SUMMARY | 2021-07-25 09:29 | CCD | Continuity of Care Document ---
Author Author oZfia MEDELLIN M.D. Organization Unknown Address [address] [address] Phone [phone] Problems Active Problems Provider Date Hyperlipidemia Jose [...] day 90tabs Jose Roberto Medellin M.D. 02/22/20 Amlodipine Besylate 5mg Tablets 1 [...] CPT Code Status Date Vaccine Lot # [id number] Given 06/10/2020 Influenza Virus Vaccine, Quadrivalent, Slit Virus, Im Use 3Y & Up [id number] [id number] Given 09/05/2019 Influenza Virus Vaccine, Quadrivalent, Slit Virus, Im Use 3Y & Up [id number] Vital Signs Date Vital Result Comment 04/23/2021 3:44pm BP Systolic 126 mmHg BP Diastolic 86 mmHg Body Temperature 97.7 F Heart Rate 60 /min Respiratory Rate 12 /min Height 62 inches 5'2" Weight 181.00 lb [place] Body Weight 110 lb BMI (Body Mass Index) 33.1 kg/m2 O2 % BldC Oximetry 98 % 06/10/2020 11:08am BP Systolic 126 mmHg BP Diastolic 84 mmHg Body Temperature 98.4 F Heart Rate 60 /min Respiratory Rate 14 /min Height 62 inches 5'2" Weight 175.00 lb [place] Body Weight 110 lb BMI (Body Mass Index) 32.0 kg/m2 O2 % BldC Oximetry 96 % Results Test Acquired Date Facility Test Result H/L Range Note Laboratory test finding 05/01/2021 [facility] (Interface) [phone] C Reactive Protein Quantitativ 0.47 mg/dL High 0 .00-0.30 CBC With Differential 05/01/2021 [facility] (Interface) [phone] White Blood Count 10.1 10 High 4.0-10.0 [...] 36.0-66.0 Lymph % 25.4 % Normal 24.0-44.0 [place] % 7.2 % Normal 2.0-8.0 Eos % 1.3 % Normal 0.0-3.0 Baso % 0.4 % Normal 0.0-1.0 Immature Granulocyte % 0.4 % Normal 0-3.0 Nucleated Red Blood Cell % 0.0 % Normal 0-0 Neutrophils # 6.6 10 Normal 1.5-8.5 Lymph # 2.6 10 Normal 1.5-5.0 [place] # 0.7 10 Normal 0.0-0.8 Eos # 0.1 10 Normal 0.0-0.5 Baso # 0.0 10 Normal 0.0-0.2 Laboratory test finding 05/01/2021 [facility] (Interface) [phone] Erythrocyte Sedimentation Rate 49 mm/hr High 0 [...] eGFR 63 # Calc 2 eGFR Non-Afr. [place] 54 # Calc 3 Lipid Panel 04/23/2021 [...] <7.0 Procedures Date Code Description Status 04/23/2021 99436 Office/Outpatient Established Mo d MDM 30-39 Min Completed 03/02/2019 [id number] Mammogram Completed Medical Devices Description No Information Available Encounters Type Date Location Provider Dx Diagnosis Office Visit 04/23/2021 3:20p [place] [facility] Jose Roberto Medellin M. D. E11.9 [...] Roberto Medellin M.D. 04/23/2021 E78.5 [facility], [facility] 04/23/2021 I10 Essential (primary) hypertension Jose Roberto Medellin M.D. 04/23/2021 M10.9 Gout, unspecified Jaleel, Scot t H, M.D. Plan of Treatment Future Appointment(s):* 05/07/2021 11:45 am - Jose Roberto Medellin M.D. at [facility] * 07/29/2021 9:00 am - Jose Roberto Medellin M.D. at [facility] Functional Status Description No Information Available Mental Status Description No Information Available Referrals Refer to Reason for Referral Status Appt Date Joe Whipple M.D. right temporal artery biopsy for swelling wi th pain Sent [address] [place] [address], [address] [place] [address] [phone]
--- OUTSIDE RECORDS SUMMARY | 2021-07-25 09:29 | CCD | Continuity of Care Document ---
Author Author Zofia MEDELLIN M.D. Organization Unknown Address [address] [address] Phone [phone] Problems Active Problems Provider Date Hyperlipidemia Jose [...] CPT Code Status Date Vaccine Lot # [id number] Given 06/10/2020 Influenza Virus Vaccine, Quadrivalent, Slit Virus, Im Use 3Y & Up [id number] 25988 Given 09/05/2019 Influenza Virus Vaccine, Quadrivalent, Slit Virus, Im Use 3Y & Up [id number] Vital Signs Date Vital Result Comment 04/23/2021 3:44pm BP Systolic 126 mmHg BP Diastolic 86 mmHg Body Temperature 97.7 F Heart Rate 60 /min Respiratory Rate 12 /min Height 62 inches 5'2" Weight 181.00 lb [place] Body Weight 110 lb BMI (Body Mass Index) 33.1 kg/m2 O2 % BldC Oximetry 98 % 06/10/2020 11:08am BP Systolic 126 mmHg BP Diastolic 84 mmHg Body Temperature 98.4 F Heart Rate 60 /min Respiratory Rate 14 /min Height 62 inches 5'2" Weight 175.00 lb [place] Body Weight 110 lb BMI (Body Mass Index) 32.0 kg/m2 O2 % BldC Oximetry 96 % Results Test Acquired Date Facility Test Result H/L Range Note CBC With Differential 05/01/2021 [facility] ([facility]) [phone] White Blood Count 10.1 10 High 4.0-10.0 [...] 36.0-66.0 Lymph % 25.4 % Normal 24.0-44.0 [place] % 7.2 % Normal 2.0-8.0 Eos % 1.3 % Normal 0.0-3.0 Baso % 0.4 % Normal 0.0-1.0 Immature Granulocyte % 0.4 % Normal 0-3.0 Nucleated Red Blood Cell % 0.0 % Normal 0-0 Neutrophils # 6.6 10 Normal 1.5-8.5 Lymph # 2.6 10 Normal 1.5-5.0 [place] # 0.7 10 Normal 0.0-0.8 Eos # 0.1 10 Normal 0.0-0.5 Baso # 0.0 10 Normal 0.0-0.2 Laboratory test finding 05/01/2021 [facility] (Interface) [phone] Erythrocyte Sedimentation Rate 49 mm/hr High 0 [...] eGFR 63 # Calc 2 eGFR Non-Afr. [place] 54 # Calc 3 Lipid Panel 04/23/2021 [...] <7.0 Procedures Date Code Description Status 04/23/2021 45505 Office/Outpatient Established Mo d MDM 30-39 Min Completed 03/02/2019 [id number] Mammogram Completed Medical Devices Description No Information Available Encounters Type Date Location Provider Dx Diagnosis Office Visit 04/23/2021 3:20p [facility] Jose Roberto Medellin M. D. E11.9 Type [...] Roberto Medellin M.D. 04/23/2021 E78.5 Hyperlipidemia, unspecified [email or web address] Jose Roberto granados M.D. 04/23/2021 I10 Essential (primary) hypertension Jose Roberto Medellin M.D. 04/23/2021 M10.9 Gout, unspecified Richard Medellin M.D. Plan of Treatment Future Appointment(s):* 05/02/2021 8:30 am - Jose Roberto Medellin M.D. at [facility] * 05/07/2021 11:45 am - Jose Roberto Medellin M.D. at [facility] * 07/29/2021 9:00 am - Jose Roberto Medellin M.D. at [facility] Functional Status Description No Information Available Mental Status Description No Information Available Referrals Refer to Reason for Referral Status Appt Date Joe Whipple M.D. right temporal artery biopsy for swelling wi th pain Sent [address] [facility], [address] [place] [address] [phone]
--- OUTSIDE RECORDS SUMMARY | 2021-07-25 09:29 | CCD | Continuity of Care Document ---
Author Author Zofia MARMOLEJO M.D. Organization Unknown Address [address] [address] Phone [phone] Problems Active Problems Provider Date Hyperlipidemia Jose [...] CPT Code Status Date Vaccine Lot # [id number] Given 06/10/2020 Influenza Virus Vaccine, Quadrivalent, Slit Virus, Im Use 3Y & Up [id number] Given 09/05/2019 Influenza Virus Vaccine, Quadrivalent, Slit Virus, Im Use 3Y & Up [id number] Vital Signs Date Vital Result Comment 05/02/2021 8:50am BP Systolic 114 mmHg BP Diastolic 76 mmHg Body Temperature 97.5 F Heart Rate 80 /min Respiratory Rate 16 /min Height 62 inches 5'2" Weight 180.00 lb [place] Body Weight 110 lb BMI (Body Mass Index) 32.9 kg/m2 O2 % BldC Oximetry 95 % 04/23/2021 3:44pm BP Systolic 126 mmHg BP Diastolic 86 mmHg Body Temperature 97.7 F Heart Rate 60 /min Respiratory Rate 12 /min Height 62 inches 5'2" Weight 181.00 lb [place] Body Weight 110 lb BMI (Body Mass Index) 33.1 kg/m2 O2 % BldC Oximetry 98 % Results Test Acquired Date Facility Test Result H/L Range Note Istat Chem8+ Panel 05/01/2021 [facility] ([facility]) [phone] iSTAT HCT 39.0 % Normal 38.0-51.0 iSTAT Glucose 107 mg/dL High 70-105 iSTAT Sodium 141 mEq/L Normal 136-145 iSTAT Potassium 4.4 mEq/L Normal 3.5-5.1 iSTAT CA++ 4.8 mg/dL Normal 4.5-5.3 iSTAT Chloride 106 mEq/L Normal 98-109 iSTAT Co2 24.0 MM/L Normal 23.0-27.0 iSTAT BUN 32 mg/dL High 8-26 iSTAT Creatinine 1.3 mg/dL Normal 0.6-1.3 Laboratory test finding 05/01/2021 [facility] (Interface) [phone] C Reactive Protein Quantitativ 0.47 mg/dL High 0 .00-0.30 CBC With Differential 05/01/2021 [facility] (Interface) [phone] White Blood Count 10.1 10 High 4.0-10.0 [...] 36.0-66.0 Lymph % 25.4 % Normal 24.0-44.0 [place] % 7.2 % Normal 2.0-8.0 Eos % 1.3 % Normal 0.0-3.0 Baso % 0.4 % Normal 0.0-1.0 Immature Granulocyte % 0.4 % Normal 0-3.0 Nucleated Red Blood Cell % 0.0 % Normal 0-0 Neutrophils # 6.6 10 Normal 1.5-8.5 Lymph # 2.6 10 Normal 1.5-5.0 [place] # 0.7 10 Normal 0.0-0.8 Eos # 0.1 10 Normal 0.0-0.5 Baso # 0.0 10 Normal 0.0-0.2 Laboratory test finding 05/01/2021 [facility] (Interface) [phone] Erythrocyte Sedimentation Rate 49 mm/hr High 0 [...] eGFR 63 # Calc 2 eGFR Non-Afr. [place] 54 # Calc 3 Lipid Panel 04/23/2021 [...] <7.0 Procedures Date Code Description Status 05/02/2021 35405 Office/Outpatient Established Mo d MDM 30-39 Min Completed 04/23/2021 66845 Office/Outpatient Established Mo d MDM 30-39 Min Completed 03/02/2019 [id number] Mammogram Completed Medical Devices Description No Information Available Encounters Type Date Location Provider Dx Diagnosis Office Visit 05/02/2021 8:30a [facility] Jose Roberto Marmolejo M. D. M54.12 Radiculopathy, cervical region Office Visit 04/23/2021 3:20p [place] [facility] Jose Roberto Marmolejo M. D. 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 at [facility] [place] Functional Status Description No Information Available Mental Status Description No Information Available Referrals Refer to Dr Reason for Referral Status Appt Date Joe Whipple M.D. right temporal artery biopsy for swelling wi th pain Sent 05/08/[address] [place] [address], [address] [place] [address] [phone]
--- OUTSIDE RECORDS SUMMARY | 2021-07-25 09:30 | CCD ---
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 Name Role Phone Bart MEDELLIN MD Unavailable Unavailable Bart MEDELLIN MD Unavailable Unavailable Bart MEDELLIN MD Unavailable Unavailable Bart MEDELLIN MD Unavailable Unavailable Bart MEDELLIN MD Unavailable Unavailable Bart MEDELLIN MD Unavailable Unavailable Bart MEDELLIN MD Unavailable Unavailable Bart MEDELLIN MD Unavailable Unavailable Bart MEDELLIN MD Unavailable Unavailable Bart MEDELLIN MD Unavailable Unavailable Bart MEDELLIN MD Unavailable Unavailable Bart MEDELLIN MD Unavailable Unavailable Bart MEDELLIN MD Unavailable Unavailable Bart MEDELLIN MD Unavailable Unavailable Bart MEDELLIN MD Unavailable Unavailable Bart MEDELLIN MD Unavailable Unavailable Bart MEDELLIN MD Unavailable Unavailable Bart MEDELLIN MD Unavailable Unavailable Bart MEDELLIN MD Unavailable Unavailable Bart MEDELLIN MD Unavailable Unavailable Bart MEDELLIN MD Unavailable Unavailable Bart MEDELLIN MD Unavailable Unavailable Bart MEDELLIN MD Unavailable Unavailable Bart MEDELLIN MD Unavailable Unavailable Bart MEDELLIN MD Unavailable Unavailable Bart MEDELLIN MD Unavailable Unavailable Bart MEDELLIN MD Unavailable Unavailable Bart MEDELLIN MD Unavailable Unavailable Bart MEDELLIN MD Unavailable Unavailable Bart MEDELLIN MD Unavailable Unavailable Bart MEDELLIN MD Unavailable Unavailable Bart MEDELLIN MD Unavailable Unavailable Bart MEDELLIN MD Unavailable Unavailable Bart MEDELLIN MD Unavailable Unavailable Bart MEDELLIN MD Unavailable Unavailable Bart MEDELLIN MD Unavailable Unavailable Bart MEDELLIN MD Unavailable Unavailable Bart MEDELLIN MD Unavailable Unavailable Bart MEDELLIN MD Unavailable Unavailable Bart MEDELLIN MD Unavailable Unavailable VIGNESH, H CM MD Unavailable Unavailable VIGNESH, H CM MD Unavailable Unavailable VIGNESH, H CM MD Unavailable Unavailable VIGNESH, H CM MD Unavailable Unavailable VIGNESH, H CM MD Unavailable Unavailable VIGNESH, H CM MD Unavailable Unavailable VIGNESH, H CM MD Unavailable Unavailable VIGNESH, H CM MD Unavailable Unavailable VIGNESH, H CM MD Unavailable Unavailable VIGNESH, H CM MD Unavailable Unavailable VIGNESH, H CM MD Unavailable Unavailable VIGNESH, H CM MD Unavailable Unavailable VIGNESH, H CM MD Unavailable Unavailable VIGNESH, H CM MD Unavailable Unavailable VIGNESH, H CM MD Unavailable Unavailable VIGNESH, H CM MD Unavailable Unavailable VIGNESH, H CM MD Unavailable Unavailable VIGNESH, H CM MD Unavailable Unavailable VIGNESH, H CM MD Unavailable Unavailable VIGNESH, H CM MD Unavailable Unavailable VIGNESH, H CM MD Unavailable Unavailable VIGNESH, H CM MD Unavailable Unavailable VIGNESH, H CM MD Unavailable Unavailable VIGNESH, H CM MD Unavailable Unavailable VIGNESH, H CM MD Unavailable Unavailable VIGNESH, H CM MD Unavailable Unavailable VIGNESH, H CM MD Unavailable Unavailable VIGNESH, H CM MD Unavailable Unavailable VIGNESH, H CM MD Unavailable Unavailable VIGNESH, H CM MD Unavailable Unavailable VIGNESH, H CM MD Unavailable Unavailable VIGNESH, H CM MD Unavailable Unavailable VIGNESH, H CM MD Unavailable Unavailable VIGNESH, H CM MD Unavailable Unavailable VIGNESH, H CM MD Unavailable Unavailable VIGNESH, H CM MD Unavailable Unavailable Kiser, L Aline RPA Unavailable Unavailable Kiser, L Aline RPA Unavailable Unavailable Kiser, L Aline RPA Unavailable Unavailable Kiser, L Aline RPA Unavailable Unavailable Kiser, L Aline RPA Unavailable Unavailable Kiser, L Aline RPA Unavailable Unavailable Kiser, L Aline RPA Unavailable Unavailable Kiser, L Aline RPA Unavailable Unavailable Kiser, L Aline RPA Unavailable Unavailable Kiser, L Aline RPA Unavailable Unavailable Kiser, L Aline RPA Unavailable Unavailable Kiser, L Aline RPA Unavailable Unavailable Kiser, L Aline RPA Unavailable Unavailable Kiser, L Aline RPA Unavailable Unavailable Kiser, L Aline RPA Unavailable Unavailable Kiser, L Aline RPA Unavailable Unavailable Kiser, L Aline RPA Unavailable Unavailable Kiser, L Aline RPA Unavailable Unavailable Kiser, L Aline RPA Unavailable Unavailable Kiser, L Aline RPA Unavailable Unavailable Kiser, L Aline RPA Unavailable Unavailable Kiser, L Aline RPA Unavailable Unavailable Kiser, L Aline RPA Unavailable Unavailable Kiser, L Aline RPA Unavailable Unavailable Kiser, L Aline RPA Unavailable Unavailable Kiser, L Aline RPA Unavailable Unavailable Kiser, L Alien RPA Unavailable Unavailable Kiser, L Aline RPA Unavailable Unavailable Kiser, L Aline RPA Unavailable Unavailable Kiser, L Aline RPA Unavailable Unavailable Kiser, L Aline RPA Unavailable Unavailable Kiser, L Aline RPA Unavailable Unavailable Re-disclosure Warning The records that you are about to access may contain information from federally-assisted alcohol or drug abuse programs. If such information is present, then the following federally mandated warning applies: This information has been disclosed to you from records protected by federal confidentiality rules (42 CFR part 2). The federal rules prohibit you from making any further disclosure of this information unless further disclosure is expressly permitted by the written consent of the person to whom it pertains or as otherwise permitted by 42 CFR part 2. A general authorization for the release of medical or other information is NOT sufficient for this purpose. The Federal rules restrict any use of the information to criminally investigate or prosecute any alcohol or drug abuse patient.The records that you are about to access may contain highly sensitive health information, the redisclosure of which is protected by Article 27-F of the [facility] Public Health law. If you continue you may have access to information: Regarding HIV / AIDS; Provided by facilities licensed or operated by the [facility] Office of Mental Health; or Provided by the [facility] Office for People With Developmental Disabilities. If such information is present, then the following [facility] mandated warning applies: This information has been disclosed to you from confidential records which are protected by state law. State law prohibits you from making any further disclosure of this information without the specific written consent of the person to whom it pertains, or as otherwise permitted by law. Any unauthorized further disclosure in violation of state law may result in a fine or prison sentence or both. A general authorization for the release of medical or other information is NOT sufficient authorization for further disc losure. Allergies and Adverse Reactions Type Description Substance Reaction Status Data Source(s ) Allergy to substance No Known Allergies No known allergies (situation ) [place] (Hilton Herrera MD [facility]) Allergy to substance No Known Allergies No known allergies (situation ) [place] ([facility]ilton Herrera MD [facility]) Allergy to substance No Known Allergies No known allergies (situation ) [place] ([facility]ilton Herrera MD [facility]) Allergy to substance No Known Allergies No known allergies (situation ) [place] (Hilton Herrera MD [facility]) Allergy to substance No Known Allergies No known allergies (situation ) [place] (Hilton Herrera MD [facility]) Allergy to substance No Known Allergies No known allergies (situation ) [place] ([facility]ilton Herrera [facility]) Family History Family Member Name Family Member Gender Family Member Status Date o f Status Description Data Source(s) Unknown Male Problem [facility] ([facility] ) () Unknown Unknown Problem [facility] ([facility], [facility]) mother,sister Encounters Encounter Providers Location Date Indications Data Source(s ) Outpatient Attender: CM MEDELLIN MD [place] [facility] 09:45:00 AM EDT [facility] ([facility] Outpatient Attender: CM MEDELLIN MD [place] [facility] 08:30:00 AM EDT [facility] ([facility] Outpatient Attender: CM MEDELLIN MD [place] [facility] 11:45:00 AM EDT [facility] ([facility] Office Visit Attender: Aline Crespo/Marysol/Domitila kothari 05/15/2021 10:45:00 AM EDT [facility] Outpatient Attender: CM MEDELLIN MD [place] [facility] 07/2021 11:45:00 AM EDT [facility] ([facility] Outpatient Attender: CM MEDELLIN MD [place] [facility] 02/2021 08:30:00 AM EDT [facility] ([facility] Outpatient Attender: CM MEDELLIN MD [place] [facility] 03:20:00 PM EDT [facility] ([facility] Outpatient Attender: CM MEDELLIN MD [place] [facility] 10:40:00 AM EDT [facility] Immunizations Vaccine Date Status Description Data Source(s) New in 2012. IIV4 06/18/2021 10:13:00 AM EDT completed [facility] ([facility] New in 2012. IIV4 06/10/2020 11:06:00 AM EDT completed [facility] ([facility] Medications Medication Brand Name Start Date Product Form Dose Route Admi nistrative Instructions Pharmacy Instructions Status Indications Reaction Description Data Source(s) Prednisone 10 MG Oral Tablet Prednisone 05/21/2021 12:00:00 AM EDT ORAL active [facility] ([facility] Ligation Or Biopsy Temporal Artery 05/08/2021 12:00:00 AM EDT completed [facility] Medication administered onsite Prednisone 20 MG Oral Tablet Prednisone 05/07/2021 12:00:00 AM EDT ORAL completed [facility] ([facility] Prednisone 50 MG Oral Tablet Prednisone 05/01/2021 12:00:00 AM EDT completed [facility] ([facility] Inveltys 1% Ophthalmic Suspension Inveltys 1% Ophthalmic January pension 04/03/2019 12:00:00 AM EDT aborted loteprednol etabonate 10 MG/ML Ophthalmic Suspension [Inveltys] [place] (Hilton Herrera [facility]) besifloxacin 6 MG/ML Ophthalmic Suspensi on [Besivance] Besivance 0.6% Ophthalmic Suspension Besivance 0.6% Ophthalmic Suspension 04/03/2019 12:00:00 AM EDT aborted besifloxacin 6 MG/ML Ophthalmic Suspension [Besivance] [place] (Hilton Herrera MD [facility]) BromSite 0.075% Ophthalmic Solution BromSite 0.075% Ophthalm ic Solution 04/03/2019 12:00:00 AM EDT aborted bromfenac 0.75 MG/ML Ophthalmic Solution [Bromsite] [place] ([facility]ilton Herrera [facility]) Insurance Providers Payer name Policy type / Coverage type Policy ID Covered green party ID Covered green party's relationship to valdez Policy Valdez Plan Information [facility] MEDIC[facility] [id number] Cande [id number] Todays Options Medicare F [id number] SELF [id number] MEDICARE [id number] SP [id number] MEDICARE COMPLETE-[facility] O [id number] S [id number] MEDICARE COMPLETE [id number] SP [id number] MEDICARE [id number] SP [id number] A UNITED HEALTHCARE MEDICARE [id number] S [id number] ANSI-Medicare Part B [id number] ANSI-Medicare Part B [id number] ANSI-Medicare Part B [id number] ANSI-Medicare Part B [id number] ANSI-Medicare Part B [id number] ANSI-Medicare Part B [id number] ANSI-Medicare Part B [id number] ANSI-Medicare Part B [id number] MEDICARE COMPLETE [id number] SP [id number] ANSI-Medicare Part B [id number] ANSI-Medicare Part B [id number] ANSI-Medicare Part B [id number] ANSI-Medicare Part B [id number] ANSI-Medicare Part B [id number] ANSI-Medicare Part B [id number] ANSI-Medicare Part B [id number] ANSI-Medicare Part B [id number] Unitedhealthcare Medicare Commercial [id number] Self [id number] Medicare Natl Gov't Servi Medicare Primary [id number] Self [id number] TODAYS OPTIONS [id number] SP [id number] MEDICARE BLUE PPO 306 [id number] SP [id number] EXCELLUS BCBS P [id number] S [id number] MEDICARE BLUE PPO 306 [id number] SP [id number] BC/BS OF [place] P [id number] S [id number] [place] [id number] SP [id number] E [id number] MEDICARE COMPLETE [id number] SP [id number] Problems, Conditions, and Diagnoses Code Display Name Description Problem Type Effective Dates Data Source(s) 379.21 Vitreous Disorders Degeneration Vitreous Disorders Deg eneration Problem 06/27/2020 12:00:00 AM EDT [place] (Hilton Herrera MD [facility]) V43.1 Pseudophakia Pseudophakia Problem 06/27/2020 12:00:00 A M EDT [place] ([facility]ilton Herrera MD [facility]) 379.21 Vitreous Disorders Degeneration Vitreous Disorders Deg eneration Problem 06/27/2020 12:00:00 AM EDT [place] ([facility]ilton Herrera MD [facility]) V43.1 Pseudophakia Pseudophakia Problem 06/27/2020 12:00:00 A M EDT [place] ([facility]ilton Herrera MD [facility]) 379.21 Vitreous Disorders Degeneration Vitreous Disorders Deg eneration Problem 06/27/2020 12:00:00 AM EDT [place] ([facility]ilton Herrera MD [facility]) V43.1 Pseudophakia Pseudophakia Problem 06/27/2020 12:00:00 A M EDT [place] (Hilton Herrera MD [facility]) 379.21 Vitreous Disorders Degeneration Vitreous Disorders Deg eneration Problem 06/27/2020 12:00:00 AM EDT [place] (Hilton Herrera MD [facility]) V43.1 Pseudophakia Pseudophakia Problem 06/27/2020 12:00:00 A M EDT [place] (Hilton Herrera MD [facility]) 379.21 Vitreous Disorders Degeneration Vitreous Disorders Deg eneration Problem 06/27/2020 12:00:00 AM EDT [place] (Hilton Herrera MD [facility]) V43.1 Pseudophakia Pseudophakia Problem 06/27/2020 12:00:00 A M EDT [place] (Hilton Herrrea MD [facility]) 366.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 Senile Nuclear Proble m 02/17/2019 12:00:00 AM EDT - 06/27/2020 12:00:00 AM EDT [place] (Hilton Herrera MD [facility]) 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 T ype 2 Diabetes with Diabetic Cataract Problem 02/17/2019 12:00:00 AM EDT - 06/27/2020 12:00:00 AM EDT [place] (Hilton Herrera MD [facility]) 366.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 Senile Nuclear Proble m 02/17/2019 12:00:00 AM EDT - 06/27/2020 12:00:00 AM EDT [place] (Hilton Herrera MD [facility]) 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 T ype 2 Diabetes with Diabetic Cataract Problem 02/17/2019 12:00:00 AM EDT - 06/27/2020 12:00:00 AM EDT [place] (Hilton Herrera MD [facility]) 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 T ype 2 Diabetes with Diabetic Cataract Problem 02/17/2019 12:00:00 AM EDT - 06/27/2020 12:00:00 AM EDT [place] (Hilton Herrera MD [facility]) 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 T ype 2 Diabetes with Diabetic Cataract Problem 02/17/2019 12:00:00 AM EDT - 06/27/2020 12:00:00 AM EDT [place] (Hilton Herrera [facility]) Surgeries/Procedures Procedure Description Date Indications Data Source(s) OFFICE OUTPATIENT VISIT 25 MINUTES 07/22/2021 12:00:00 AM EDT [facility] ([facility] OFFICE OUTPATIENT VISIT 25 MINUTES 06/18/2021 12:00:00 AM EDT [facility] ([facility] OFFICE OUTPATIENT VISIT 25 MINUTES 05/21/2021 12:00:00 AM EDT [facility] ([facility] Ligation Or Biopsy Temporal Artery 05/08/2021 12:00:00 AM EDT [facility] ([facility], ) OFFICE OUTPATIENT VISIT 25 MINUTES 05/07/2021 12:00:00 AM EDT [facility] ([facility] OFFICE OUTPATIENT VISIT 25 MINUTES 05/02/2021 12:00:00 AM EDT [facility] ([facility] OFFICE OUTPATIENT VISIT 25 MINUTES 04/23/2021 12:00:00 AM EDT [facility] ([facility] Extracapsular extraction of lens (procedure) History o f extracapsular cataract extraction PCIOL OD ~PCIOL OS 04/10/[address] Marquez 06/27/2020 12:00:00 AM EDT [place] (Hilton Herrera MD [facility]) Extracapsular extraction of lens (procedure) History o f extracapsular cataract extraction PCIOL OD ~PCIOL OS 04/10/[address] Marquez 06/27/2020 12:00:00 AM EDT [place] (Hilton Herrera MD [facility]) Extracapsular extraction of lens (procedure) History o f extracapsular cataract extraction PCIOL OD 06/27/2020 12:00:00 AM EDT [place] (Ric Herrera MD [facility]) Surgical / procedural history Quad Hear t Bypass 2007, Sx on broken arm 2016, Knee replacement both, Gallbladder removal, Hysterectomy, colonoscopy 2014 Surgical / procedural history Quad Heart Bypass 2007, Sx on broken arm 2016, Knee replacement both, Gallbladder removal, Hysterectomy, colonoscopy 201406/27/2020 12:00:00 AM EDT [place] (Hilton calderon MD [facility]) Extracapsular extraction of lens (procedure) History o f extracapsular cataract extraction PCIOL OD 06/27/2020 12:00:00 AM EDT [place] (Ric Herrera MD [facility]) Extracapsular extraction of lens (procedure) History o f extracapsular cataract extraction PCIOL OD 06/27/2020 12:00:00 AM EDT [place] (Ric Herrera MD [facility]) Results ID Date Data Source [id number] 07/22/2021 09:48:00 AM EDT [facility] ([facility] Name Value Range Interpretation Code Description Data Megan rce(s) Supporting Document(s) Glu 148 mg/dL 70-110 Above high normal [facility] ([facility] BUN 33 mg/dL 8-23 Above high normal [facility] ([facility] Creat 1.2 mg/dL 0.5-1.0 Above high normal [facility] ([facility] BUN/Creatinine Ratio 26.6 CALC [facility] ([facility] Na 142 mmol/L 136-145 [facility] CL 109.7 mmol/L 98.0-107.0 Above high normal MEDEN T ([facility] K 4.0 mmol/L 3.5-5.1 [facility] ([facility] Co2 20.4 mmol/L 22.0-29.0 Below low normal [facility] ([facility] CA 9.5 mg/dL 8.6-10.2 [facility] TP 5.4 g/dL 6.6-8.7 Below low normal [facility] ( [facility] Alb 3.7 g/dL 3.4-4.8 [facility] Globulin 1.7 CALC [facility] A/G Ratio 2.2 CALC [facility] ([facility] Alp 71.4 U/L 35-129 [facility] Alt (SGPT) 12 U/L 0-41 [facility] Tbili 0.37 mg/dL 0.0-1.2 [facility] ([facility] Ast (Sgot) 9 U/L 0-40 [facility] Osmolality-Calculated 293.7 CALC MED [facility] ([facility] Anion Gap 16 mmol/L [facility] ([facility] eGFR 50 # [facility] ( [facility] CKD-EPI eGFR Non-Afr. Italian 44 # [facility] ([facility] CKD-EPI ID Date Data Source [id number] 07/22/2021 09:48:00 AM EDT [facility] ([facility] Name Value Range Interpretation Code Description Data Megan rce(s) Supporting Document(s) Hemoglobin A1c/Hemoglobin.total in Blood 8.2 % 4.8-5.6 Above high normal [facility] ([facility] <content>Prediabetes: 5.7 - 6.4</content >
<content>Diabetes: >6.4</content>
<content>Glycemic control for adults with diabetes: <7.0</content>
<content></content> ID Date Data Source [id number] 07/22/2021 09:48:00 AM EDT [facility] ([facility] Name Value Range Interpretation Code Description Data Megan rce(s) Supporting Document(s) Erythrocyte sedimentation rate by Westergren method 11 mm/hr 0-40 [facility] ([facility] ID Date Data Source [id number] 07/22/2021 09:48:00 AM EDT [facility] ([facility] Name Value Range Interpretation Code Description Data Megan rce(s) Supporting Document(s) Urate [Mass/volume] in Serum or Plasma 5.8 mg/dL 2.4-5.7 Above hi gh normal [facility] ([facility] CHRONIC KIDNEY DISEASE STAGING PER NKF: MALE GFR INTERPRETATION: 20-49 YRS: [...] DESIRABLE: <130 MG/DL <110 MG/DL BORDERLINE-HIGH RISK: 130- 159 MG/DL 110-129 MG/DL HIGH RISK: >160 MG/DL >130 MG/DL *CHILDREN AND ADOLESCENTS REPRESENTS INDIVIDUALA AGED 2-19 YEARS EXCLUSIVE. ID Date Data Source [id number] 07/22/2021 09:48:00 AM EDT [facility] ([facility] Name Value Range Interpretation Code Description Data Megan rce(s) Supporting Document(s) Chol 181 mg/dL 0-200 [facility] ([facility] CHRONIC KIDNEY DISEASE STAGING PER NKF: MALE GFR INTERPRETATION: 20-49 YRS: [...] DESIRABLE: <130 MG/DL <110 MG/DL BORDERLINE-HIGH RISK: 130- 159 MG/DL 110-129 MG/DL HIGH RISK: >160 MG/DL >130 MG/DL *CHILDREN AND ADOLESCENTS REPRESENTS INDIVIDUALA AGED 2-19 YEARS EXCLUSIVE. Trig 158 mg/dL 40-200 [facility] ([facility] CHRONIC KIDNEY DISEASE STAGING PER NKF: MALE GFR INTERPRETATION: 20-49 YRS: [...] DESIRABLE: <130 MG/DL <110 MG/DL BORDERLINE-HIGH RISK: 130- 159 MG/DL 110-129 MG/DL HIGH RISK: >160 MG/DL >130 MG/DL *CHILDREN AND ADOLESCENTS REPRESENTS INDIVIDUALA AGED 2-19 YEARS EXCLUSIVE. LDL_C 103 Calc 75-129 [facility] CHRONIC KIDNEY DISEASE STAGING PER NKF: MALE GFR INTERPRETATION: 20-49 YRS: [...] DESIRABLE: <130 MG/DL <110 MG/DL BORDERLINE-HIGH RISK: 130- 159 MG/DL 110-129 MG/DL HIGH RISK: >160 MG/DL >130 MG/DL *CHILDREN AND ADOLESCENTS REPRESENTS INDIVIDUALA AGED 2-19 YEARS EXCLUSIVE. Cholesterol in HDL [Mass/volume] in Serum or Plasma 46 mg/dL 45-65 [facility] ([facility] CHRONIC KIDNEY DISEASE STAGING PER NKF: MALE GFR INTERPRETATION: 20-49 YRS: [...] DESIRABLE: <130 MG/DL <110 MG/DL BORDERLINE-HIGH RISK: 130- 159 MG/DL 110-129 MG/DL HIGH RISK: >160 MG/DL >130 MG/DL *CHILDREN AND ADOLESCENTS REPRESENTS INDIVIDUALA AGED 2-19 YEARS EXCLUSIVE. Cho/HDL Ratio 3.9 CALC [place] ([facility] CHRONIC KIDNEY DISEASE STAGING PER NKF: MALE GFR INTERPRETATION: 20-49 YRS: [...] DESIRABLE: <130 MG/DL <110 MG/DL BORDERLINE-HIGH RISK: 130- 159 MG/DL 110-129 MG/DL HIGH RISK: >160 MG/DL >130 MG/DL *CHILDREN AND ADOLESCENTS REPRESENTS INDIVIDUALA AGED 2-19 YEARS EXCLUSIVE. ID Date Data Source [id number] 06/18/2021 08:58:00 AM EDT [place] ([facility] Name Value Range Interpretation Code Description Data Megan rce(s) Supporting Document(s) Erythrocyte sedimentation rate by Westergren method 14 0-20 [facility] ([facility] ID Date Data Source [id number] 05/21/2021 01:19:00 PM EDT [facility] ([facility] Name Value Range Interpretation Code Description Data Megan rce(s) Supporting Document(s) Erythrocyte sedimentation rate by Westergren method 14 0-20 [facility] ([facility] ID Date Data Source [id number] 05/08/2021 04:00:00 PM EDT [facility] ([facility], ) Name Value Range Interpretation Code Description Data Megan rce(s) Supporting Document(s) Surgical pathology study Laboratory [facility] FINAL DIAGNOSIS Temporal artery, right, biopsy: Medium size artery with mild atherosclerosis, otherwise without significant pathology. (See comment). Comment: A negative biopsy does not rule out the possibility of giant cell (temporal) arteritis. This can be a focal disorder. The clinical management should be dependent upon the clinical impression. 05/12/20211027 CLINICAL DIAGNOSIS Right temporal arteritis 05/09/20211338 GROSS DIAGNOSIS Received in formalin labeled "right temporal biopsy" and consists of a segment of artery 1.5 cm. in length and 0.1 cm. in greatest diameter. All in one. -OA 05/09/20211338 Signed MICHELLE HARDEN MD 05/12/2021 1028 ID Date Data Source [id number] 05/07/2021 11:54:00 AM EDT [facility] ([facility] Name Value Range Interpretation Code Description Data Megan rce(s) Supporting Document(s) Erythrocyte sedimentation rate by Westergren method 25 0- 20 Above high normal [facility] ([facility] ID Date Data Source [id number] 05/01/2021 03:36:00 PM EDT [facility] ([facility] Name Value Range Interpretation Code Description Data Megan rce(s) Supporting Document(s) Laboratory test finding (navigational concept) 39.0 % 3 8.0-51.0 Normal (applies to non-numeric results) [facility] ([facility] Laboratory test finding (navigational concept) 107 mg/dL 7 0-105 Above high normal [facility] ([facility] ) Laboratory test finding (navigational concept) 141 meq/L 1 36-145 Normal (applies to non-numeric results) [facility] ([facility] Laboratory test finding (navigational concept) 4.4 meq/L 3 .5-5.1 Normal (applies to non-numeric results) [facility] ([facility] Laboratory test finding (navigational concept) 4.8 mg/dL 4 .5-5.3 Normal (applies to non-numeric results) [facility] ([facility] Laboratory test finding (navigational concept) 106 meq/L 9 8-109 Normal (applies to non-numeric results) [facility] ([facility] Laboratory test finding (navigational concept) 24.0 MM/L 2 3.0-27.0 Normal (applies to non-numeric results) [facility] Laboratory test finding (navigational concept) 32 mg/dL 8-26 Above high normal [facility] ([facility] Laboratory test finding (navigational concept) 1.3 mg/dL 0 .6-1.3 Normal (applies to non-numeric results) [facility] ([facility] ID Date Data Source [id number] 05/01/2021 03:20:00 PM EDT [facility] ([facility] Name Value Range Interpretation Code Description Data Meagn rce(s) Supporting Document(s) C reactive protein [Mass/volume] in Serum or Plasma by High sensitivity method 0.47 mg/dL 0.00-0.30 Above high normal [facility] ([facility] ID Date Data Source [id number] 05/01/2021 02:52:00 PM EDT [facility] ([facility] Name Value Range Interpretation Code Description Data Megan rce(s) Supporting Document(s) White Blood Count 10.1 10 4.0-10.0 Above high normal [facility] ([facility] Red Blood Count 4.49 10 4.00-5.40 Normal (applies to non-numeric results) [facility] ([facility] Hemoglobin 12.5 g/dL 12.0-15.5 Normal (applies to non-numeric resul ts) [facility] ([facility] Hematocrit 39.0 % 36.0-47.0 Normal (applies to non-numeric resul ts) [facility] ([facility] Mean Corpuscular Volume 86.9 fl 80.0-96.0 Normal ( applies to non-numeric results) [facility] ([facility] ) Mean Corpuscular Hemoglobin 27.8 pg 27.0-33.0 Norm al (applies to non-numeric results) [facility] ([facility] ) Mean Corpuscular HGB Conc 32.1 g/dL 32.0-36.5 Normal (applies to non-numeric results) [facility] ([facility] ) Red Cell Distribution Width 14.4 % 11.5-14.5 Norm al (applies to non-numeric results) [facility] ([facility] ) Platelet Count, Automated 213 10 150-450 Normal (applies to non-numeric results) [facility] ([facility] Neutrophils % 65.3 % 36.0-66.0 Normal (applies to non-numeric re sults) [facility] ([facility] Lymph % 25.4 % 24.0-44.0 Normal (applies to non-numeric resul ts) [facility] ([facility] Eos % 1.3 % 0.0-3.0 Normal (applies to non-numeric resul ts) [facility] ([facility] Harrison % 7.2 % 2.0-8.0 Normal (applies to non-numeric resul ts) [facility] ([facility] Baso % 0.4 % 0.0-1.0 Normal (applies to non-numeric resul ts) [facility] ([facility] Immature Granulocyte % 0.4 % 0-3.0 Normal (applies to non-n umeric results) [facility] ([facility] Nucleated Red Blood Cell % 0.0 % 0-0 Normal (applies to n on-numeric results) [facility] ([facility] Lymph # 2.6 10 1.5-5.0 Normal (applies to non-numeric resul ts) [facility] ([facility] Neutrophils # 6.6 10 1.5-8.5 Normal (applies to non-numeric re sults) [facility] ([facility] Harrison # 0.7 10 0.0-0.8 Normal (applies to non-numeric resul ts) [facility] ([facility] Baso # 0.0 10 0.0-0.2 Normal (applies to non-numeric resul ts) [facility] ([facility] Eos # 0.1 10 0.0-0.5 Normal (applies to non-numeric resul ts) [facility] ([facility] ID Date Data Source [id number] 05/01/2021 02:52:00 PM EDT [facility] Name Value Range Interpretation Code Description Data Megan rce(s) Supporting Document(s) Erythrocyte sedimentation rate by Westergren method 49 mm/hr 0-30 Above high normal [facility] ([facility] ) ID Date Data Source [id number] 04/23/2021 03:52:00 PM EDT [facility] ([facility] Name Value Range Interpretation Code Description Data Megan rce(s) Supporting Document(s) Hemoglobin A1c/Hemoglobin.total in Blood 6.7 % 4.8-5.6 Above high normal [facility] ([facility] <content>Prediabetes: 5.7 - 6.4</content >
<content>Diabetes: >6.4</content>
<content>Glycemic control for adults with diabetes: <7.0</content>
<content></content> ID Date Data Source [id number] 04/23/2021 03:52:00 PM EDT [facility] Name Value Range Interpretation Code Description Data Megan rce(s) Supporting Document(s) Erythrocyte sedimentation rate by Westergren method 58 mm/hr 0-40 Above high normal [facility] ([facility] ) ID Date Data Source [id number] 04/23/2021 03:52:00 PM EDT [facility] ([facility] Name Value Range Interpretation Code Description Data Megan rce(s) Supporting Document(s) Urate [Mass/volume] in Serum or Plasma 5.3 mg/dL 2.4-5.7 [facility] ([facility] CHRONIC KIDNEY DISEASE STAGING PER NKF: MALE GFR INTERPRETATION: 20-49 YRS: [...] DESIRABLE: <130 MG/DL <110 MG/DL BORDERLINE-HIGH RISK: 130- 159 MG/DL 110-129 MG/DL HIGH RISK: >160 MG/DL >130 MG/DL *CHILDREN AND ADOLESCENTS REPRESENTS INDIVIDUALA AGED 2-19 YEARS EXCLUSIVE. ID Date Data Source [id number] 04/23/2021 03:52:00 PM EDT [facility] ([facility] Name Value Range Interpretation Code Description Data Megan rce(s) Supporting Document(s) WBC 9.6 10E3/uL 4.1-10.9 [facility] ([facility] CHRONIC KIDNEY DISEASE STAGING PER NKF: MALE GFR INTERPRETATION: 20-49 YRS: [...] DESIRABLE: <130 MG/DL <110 MG/DL BORDERLINE-HIGH RISK: 130- 159 MG/DL 110-129 MG/DL HIGH RISK: >160 MG/DL >130 MG/DL *CHILDREN AND ADOLESCENTS REPRESENTS INDIVIDUALA AGED 2-19 YEARS EXCLUSIVE. RBC 4.49 10E6/uL 4.20-6.30 [facility] CHRONIC KIDNEY DISEASE STAGING PER NKF: MALE GFR INTERPRETATION: 20-49 YRS: [...] DESIRABLE: <130 MG/DL <110 MG/DL BORDERLINE-HIGH RISK: 130- 159 MG/DL 110-129 MG/DL HIGH RISK: >160 MG/DL >130 MG/DL *CHILDREN AND ADOLESCENTS REPRESENTS INDIVIDUALA AGED 2-19 YEARS EXCLUSIVE. HGB 12.6 g/dL 12.0-18.0 [facility] CHRONIC KIDNEY DISEASE STAGING PER NKF: MALE GFR INTERPRETATION: 20-49 YRS: [...] DESIRABLE: <130 MG/DL <110 MG/DL BORDERLINE-HIGH RISK: 130- 159 MG/DL 110-129 MG/DL HIGH RISK: >160 MG/DL >130 MG/DL *CHILDREN AND ADOLESCENTS REPRESENTS INDIVIDUALA AGED 2-19 YEARS EXCLUSIVE. HCT 38.9 % 37.0-51.0 [facility] CHRONIC KIDNEY DISEASE STAGING PER NKF: MALE GFR INTERPRETATION: 20-49 YRS: [...] DESIRABLE: <130 MG/DL <110 MG/DL BORDERLINE-HIGH RISK: 130- 159 MG/DL 110-129 MG/DL HIGH RISK: >160 MG/DL >130 MG/DL *CHILDREN AND ADOLESCENTS REPRESENTS INDIVIDUALA AGED 2-19 YEARS EXCLUSIVE. MCV 86.6 fL 80.0-97.0 [facility] CHRONIC KIDNEY DISEASE STAGING PER NKF: MALE GFR INTERPRETATION: 20-49 YRS: [...] DESIRABLE: <130 MG/DL <110 MG/DL BORDERLINE-HIGH RISK: 130- 159 MG/DL 110-129 MG/DL HIGH RISK: >160 MG/DL >130 MG/DL *CHILDREN AND ADOLESCENTS REPRESENTS INDIVIDUALA AGED 2-19 YEARS EXCLUSIVE. MCH 28.1 pg 26.0-32.0 [facility] CHRONIC KIDNEY DISEASE STAGING PER NKF: MALE GFR INTERPRETATION: 20-49 YRS: [...] DESIRABLE: <130 MG/DL <110 MG/DL BORDERLINE-HIGH RISK: 130- 159 MG/DL 110-129 MG/DL HIGH RISK: >160 MG/DL >130 MG/DL *CHILDREN AND ADOLESCENTS REPRESENTS INDIVIDUALA AGED 2-19 YEARS EXCLUSIVE. PLT 240 10E3/uL 140-440 [facility] CHRONIC KIDNEY DISEASE STAGING PER NKF: MALE GFR INTERPRETATION: 20-49 YRS: [...] DESIRABLE: <130 MG/DL <110 MG/DL BORDERLINE-HIGH RISK: 130- 159 MG/DL 110-129 MG/DL HIGH RISK: >160 MG/DL >130 MG/DL *CHILDREN AND ADOLESCENTS REPRESENTS INDIVIDUALA AGED 2-19 YEARS EXCLUSIVE. MCHC 32.4 g/dL 31.0-36.0 [facility] CHRONIC KIDNEY DISEASE STAGING PER NKF: MALE GFR INTERPRETATION: 20-49 YRS: [...] DESIRABLE: <130 MG/DL <110 MG/DL BORDERLINE-HIGH RISK: 130- 159 MG/DL 110-129 MG/DL HIGH RISK: >160 MG/DL >130 MG/DL *CHILDREN AND ADOLESCENTS REPRESENTS INDIVIDUALA AGED 2-19 YEARS EXCLUSIVE. Lym% 24.4 % 10.0-58.5 [facility] CHRONIC KIDNEY DISEASE STAGING PER NKF: MALE GFR INTERPRETATION: 20-49 YRS: [...] DESIRABLE: <130 MG/DL <110 MG/DL BORDERLINE-HIGH RISK: 130- 159 MG/DL 110-129 MG/DL HIGH RISK: >160 MG/DL >130 MG/DL *CHILDREN AND ADOLESCENTS REPRESENTS INDIVIDUALA AGED 2-19 YEARS EXCLUSIVE. RDW-CV 14.4 % 11.5-14.5 [facility] ([facility] CHRONIC KIDNEY DISEASE STAGING PER NKF: MALE GFR INTERPRETATION: 20-49 YRS: [...] DESIRABLE: <130 MG/DL <110 MG/DL BORDERLINE-HIGH RISK: 130- 159 MG/DL 110-129 MG/DL HIGH RISK: >160 MG/DL >130 MG/DL *CHILDREN AND ADOLESCENTS REPRESENTS INDIVIDUALA AGED 2-19 YEARS EXCLUSIVE. Neut% 69.8 % 37.0-92.0 [facility]NE ([facility] CHRONIC KIDNEY DISEASE STAGING PER NKF: MALE GFR INTERPRETATION: 20-49 YRS: [...] DESIRABLE: <130 MG/DL <110 MG/DL BORDERLINE-HIGH RISK: 130- 159 MG/DL 110-129 MG/DL HIGH RISK: >160 MG/DL >130 MG/DL *CHILDREN AND ADOLESCENTS REPRESENTS INDIVIDUALA AGED 2-19 YEARS EXCLUSIVE. Lym# 2.3 10E3/uL 0.6-4.1 [facility] ([facility] CHRONIC KIDNEY DISEASE STAGING PER NKF: MALE GFR INTERPRETATION: 20-49 YRS: [...] DESIRABLE: <130 MG/DL <110 MG/DL BORDERLINE-HIGH RISK: 130- 159 MG/DL 110-129 MG/DL HIGH RISK: >160 MG/DL >130 MG/DL *CHILDREN AND ADOLESCENTS REPRESENTS INDIVIDUALA AGED 2-19 YEARS EXCLUSIVE. MXD% 5.8 % 0.1-24.0 [facility] CHRONIC KIDNEY DISEASE STAGING PER NKF: MALE GFR INTERPRETATION: 20-49 YRS: [...] DESIRABLE: <130 MG/DL <110 MG/DL BORDERLINE-HIGH RISK: 130- 159 MG/DL 110-129 MG/DL HIGH RISK: >160 MG/DL >130 MG/DL *CHILDREN AND ADOLESCENTS REPRESENTS INDIVIDUALA AGED 2-19 YEARS EXCLUSIVE. Neut# 6.7 % 2.0-7.8 [facility] CHRONIC KIDNEY DISEASE STAGING PER NKF: MALE GFR INTERPRETATION: 20-49 YRS: [...] DESIRABLE: <130 MG/DL <110 MG/DL BORDERLINE-HIGH RISK: 130- 159 MG/DL 110-129 MG/DL HIGH RISK: >160 MG/DL >130 MG/DL *CHILDREN AND ADOLESCENTS REPRESENTS INDIVIDUALA AGED 2-19 YEARS EXCLUSIVE. MXD# 0.6 10E3/uL 0.0-1.8 [facility] ([facility] CHRONIC KIDNEY DISEASE STAGING PER NKF: MALE GFR INTERPRETATION: 20-49 YRS: [...] DESIRABLE: <130 MG/DL <110 MG/DL BORDERLINE-HIGH RISK: 130- 159 MG/DL 110-129 MG/DL HIGH RISK: >160 MG/DL >130 MG/DL *CHILDREN AND ADOLESCENTS REPRESENTS INDIVIDUALA AGED 2-19 YEARS EXCLUSIVE. MPV 11.4 fL 9.0-13.0 [facility] CHRONIC KIDNEY DISEASE STAGING PER NKF: MALE GFR INTERPRETATION: 20-49 YRS: [...] DESIRABLE: <130 MG/DL <110 MG/DL BORDERLINE-HIGH RISK: 130- 159 MG/DL 110-129 MG/DL HIGH RISK: >160 MG/DL >130 MG/DL *CHILDREN AND ADOLESCENTS REPRESENTS INDIVIDUALA AGED 2-19 YEARS EXCLUSIVE. ID Date Data Source [id number] 04/23/2021 03:52:00 PM EDT [facility] ([facility] Name Value Range Interpretation Code Description Data Megan rce(s) Supporting Document(s) Chol 281 mg/dL 0-200 Above high normal [facility] ([facility] CHRONIC KIDNEY DISEASE STAGING PER NKF: MALE GFR INTERPRETATION: 20-49 YRS: [...] DESIRABLE: <130 MG/DL <110 MG/DL BORDERLINE-HIGH RISK: 130- 159 MG/DL 110-129 MG/DL HIGH RISK: >160 MG/DL >130 MG/DL *CHILDREN AND ADOLESCENTS REPRESENTS INDIVIDUALA AGED 2-19 YEARS EXCLUSIVE. Trig 332 mg/dL 40-200 Above high normal [facility] ([facility] CHRONIC KIDNEY DISEASE STAGING PER NKF: MALE GFR INTERPRETATION: 20-49 YRS: [...] DESIRABLE: <130 MG/DL <110 MG/DL BORDERLINE-HIGH RISK: 130- 159 MG/DL 110-129 MG/DL HIGH RISK: >160 MG/DL >130 MG/DL *CHILDREN AND ADOLESCENTS REPRESENTS INDIVIDUALA AGED 2-19 YEARS EXCLUSIVE. Cholesterol in HDL [Mass/volume] in Serum or Plasma 43 mg/dL 45-65 Below low normal [facility] ([facility] ) CHRONIC KIDNEY DISEASE STAGING PER NKF: MALE GFR INTERPRETATION: 20-49 YRS: [...] DESIRABLE: <130 MG/DL <110 MG/DL BORDERLINE-HIGH RISK: 130- 159 MG/DL 110-129 MG/DL HIGH RISK: >160 MG/DL >130 MG/DL *CHILDREN AND ADOLESCENTS REPRESENTS INDIVIDUALA AGED 2-19 YEARS EXCLUSIVE. Cho/HDL Ratio 6.6 CALC [facility] ([facility] CHRONIC KIDNEY DISEASE STAGING PER NKF: MALE GFR INTERPRETATION: 20-49 YRS: [...] DESIRABLE: <130 MG/DL <110 MG/DL BORDERLINE-HIGH RISK: 130- 159 MG/DL 110-129 MG/DL HIGH RISK: >160 MG/DL >130 MG/DL *CHILDREN AND ADOLESCENTS REPRESENTS INDIVIDUALA AGED 2-19 YEARS EXCLUSIVE. LDL_C 172 Calc 75-129 Above high normal [facility] ([facility] CHRONIC KIDNEY DISEASE STAGING PER NKF: MALE GFR INTERPRETATION: 20-49 YRS: [...] DESIRABLE: <130 MG/DL <110 MG/DL BORDERLINE-HIGH RISK: 130- 159 MG/DL 110-129 MG/DL HIGH RISK: >160 MG/DL >130 MG/DL *CHILDREN AND ADOLESCENTS REPRESENTS INDIVIDUALA AGED 2-19 YEARS EXCLUSIVE. ID Date Data Source [id number] 04/23/2021 03:52:00 PM EDT [facility] ([facility] Name Value Range Interpretation Code Description Data Megan rce(s) Supporting Document(s) Glu 197 mg/dL 70-110 Above high normal [facility] ([facility] CHRONIC KIDNEY DISEASE STAGING PER NKF: MALE GFR INTERPRETATION: 20-49 YRS: [...] DESIRABLE: <130 MG/DL <110 MG/DL BORDERLINE-HIGH RISK: 130- 159 MG/DL 110-129 MG/DL HIGH RISK: >160 MG/DL >130 MG/DL *CHILDREN AND ADOLESCENTS REPRESENTS INDIVIDUALA AGED 2-19 YEARS EXCLUSIVE. BUN 26 mg/dL 8-23 Above high normal [facility] ([facility] CHRONIC KIDNEY DISEASE STAGING PER NKF: MALE GFR INTERPRETATION: 20-49 YRS: [...] DESIRABLE: <130 MG/DL <110 MG/DL BORDERLINE-HIGH RISK: 130- 159 MG/DL 110-129 MG/DL HIGH RISK: >160 MG/DL >130 MG/DL *CHILDREN AND ADOLESCENTS REPRESENTS INDIVIDUALA AGED 2-19 YEARS EXCLUSIVE. Creat 1.0 mg/dL 0.5-1.0 [facility] CHRONIC KIDNEY DISEASE STAGING PER NKF: MALE GFR INTERPRETATION: 20-49 YRS: [...] DESIRABLE: <130 MG/DL <110 MG/DL BORDERLINE-HIGH RISK: 130- 159 MG/DL 110-129 MG/DL HIGH RISK: >160 MG/DL >130 MG/DL *CHILDREN AND ADOLESCENTS REPRESENTS INDIVIDUALA AGED 2-19 YEARS EXCLUSIVE. BUN/Creatinine Ratio 25.8 CALC [facility] ([facility] CHRONIC KIDNEY DISEASE STAGING PER NKF: MALE GFR INTERPRETATION: 20-49 YRS: [...] DESIRABLE: <130 MG/DL <110 MG/DL BORDERLINE-HIGH RISK: 130- 159 MG/DL 110-129 MG/DL HIGH RISK: >160 MG/DL >130 MG/DL *CHILDREN AND ADOLESCENTS REPRESENTS INDIVIDUALA AGED 2-19 YEARS EXCLUSIVE. Na 138 mmol/L 136-145 [facility] CHRONIC KIDNEY DISEASE STAGING PER NKF: MALE GFR INTERPRETATION: 20-49 YRS: [...] DESIRABLE: <130 MG/DL <110 MG/DL BORDERLINE-HIGH RISK: 130- 159 MG/DL 110-129 MG/DL HIGH RISK: >160 MG/DL >130 MG/DL *CHILDREN AND ADOLESCENTS REPRESENTS INDIVIDUALA AGED 2-19 YEARS EXCLUSIVE. CL 100.0 mmol/L 98.0-107.0 [facility] CHRONIC KIDNEY DISEASE STAGING PER NKF: MALE GFR INTERPRETATION: 20-49 YRS: [...] DESIRABLE: <130 MG/DL <110 MG/DL BORDERLINE-HIGH RISK: 130- 159 MG/DL 110-129 MG/DL HIGH RISK: >160 MG/DL >130 MG/DL *CHILDREN AND ADOLESCENTS REPRESENTS INDIVIDUALA AGED 2-19 YEARS EXCLUSIVE. K 4.1 mmol/L 3.5-5.1 [facility] CHRONIC KIDNEY DISEASE STAGING PER NKF: MALE GFR INTERPRETATION: 20-49 YRS: [...] DESIRABLE: <130 MG/DL <110 MG/DL BORDERLINE-HIGH RISK: 130- 159 MG/DL 110-129 MG/DL HIGH RISK: >160 MG/DL >130 MG/DL *CHILDREN AND ADOLESCENTS REPRESENTS INDIVIDUALA AGED 2-19 YEARS EXCLUSIVE. Co2 19.7 mmol/L 22.0-29.0 Below low normal [facility] ([facility] CHRONIC KIDNEY DISEASE STAGING PER NKF: MALE GFR INTERPRETATION: 20-49 YRS: [...] DESIRABLE: <130 MG/DL <110 MG/DL BORDERLINE-HIGH RISK: 130- 159 MG/DL 110-129 MG/DL HIGH RISK: >160 MG/DL >130 MG/DL *CHILDREN AND ADOLESCENTS REPRESENTS INDIVIDUALA AGED 2-19 YEARS EXCLUSIVE. CA 10.1 mg/dL 8.6-10.2 [facility] CHRONIC KIDNEY DISEASE STAGING PER NKF: MALE GFR INTERPRETATION: 20-49 YRS: [...] DESIRABLE: <130 MG/DL <110 MG/DL BORDERLINE-HIGH RISK: 130- 159 MG/DL 110-129 MG/DL HIGH RISK: >160 MG/DL >130 MG/DL *CHILDREN AND ADOLESCENTS REPRESENTS INDIVIDUALA AGED 2-19 YEARS EXCLUSIVE. TP 6.7 g/dL 6.6-8.7 [facility] CHRONIC KIDNEY DISEASE STAGING PER NKF: MALE GFR INTERPRETATION: 20-49 YRS: [...] DESIRABLE: <130 MG/DL <110 MG/DL BORDERLINE-HIGH RISK: 130- 159 MG/DL 110-129 MG/DL HIGH RISK: >160 MG/DL >130 MG/DL *CHILDREN AND ADOLESCENTS REPRESENTS INDIVIDUALA AGED 2-19 YEARS EXCLUSIVE. Alb 4.1 g/dL 3.4-4.8 [facility] CHRONIC KIDNEY DISEASE STAGING PER NKF: MALE GFR INTERPRETATION: 20-49 YRS: [...] DESIRABLE: <130 MG/DL <110 MG/DL BORDERLINE-HIGH RISK: 130- 159 MG/DL 110-129 MG/DL HIGH RISK: >160 MG/DL >130 MG/DL *CHILDREN AND ADOLESCENTS REPRESENTS INDIVIDUALA AGED 2-19 YEARS EXCLUSIVE. A/G Ratio 1.6 CALC [facility] ([facility] CHRONIC KIDNEY DISEASE STAGING PER NKF: MALE GFR INTERPRETATION: 20-49 YRS: [...] DESIRABLE: <130 MG/DL <110 MG/DL BORDERLINE-HIGH RISK: 130- 159 MG/DL 110-129 MG/DL HIGH RISK: >160 MG/DL >130 MG/DL *CHILDREN AND ADOLESCENTS REPRESENTS INDIVIDUALA AGED 2-19 YEARS EXCLUSIVE. Globulin 2.6 CALC [facility] CHRONIC KIDNEY DISEASE STAGING PER NKF: MALE GFR INTERPRETATION: 20-49 YRS: [...] DESIRABLE: <130 MG/DL <110 MG/DL BORDERLINE-HIGH RISK: 130- 159 MG/DL 110-129 MG/DL HIGH RISK: >160 MG/DL >130 MG/DL *CHILDREN AND ADOLESCENTS REPRESENTS INDIVIDUALA AGED 2-19 YEARS EXCLUSIVE. Alp 131.6 U/L 35-129 Above high normal [facility] ([facility] CHRONIC KIDNEY DISEASE STAGING PER NKF: MALE GFR INTERPRETATION: 20-49 YRS: [...] DESIRABLE: <130 MG/DL <110 MG/DL BORDERLINE-HIGH RISK: 130- 159 MG/DL 110-129 MG/DL HIGH RISK: >160 MG/DL >130 MG/DL *CHILDREN AND ADOLESCENTS REPRESENTS INDIVIDUALA AGED 2-19 YEARS EXCLUSIVE. Alt (SGPT) 9 U/L 0-41 [facility] CHRONIC KIDNEY DISEASE STAGING PER NKF: MALE GFR INTERPRETATION: 20-49 YRS: [...] DESIRABLE: <130 MG/DL <110 MG/DL BORDERLINE-HIGH RISK: 130- 159 MG/DL 110-129 MG/DL HIGH RISK: >160 MG/DL >130 MG/DL *CHILDREN AND ADOLESCENTS REPRESENTS INDIVIDUALA AGED 2-19 YEARS EXCLUSIVE. Ast (Sgot) 13 U/L 0-40 [facility] CHRONIC KIDNEY DISEASE STAGING PER NKF: MALE GFR INTERPRETATION: 20-49 YRS: [...] DESIRABLE: <130 MG/DL <110 MG/DL BORDERLINE-HIGH RISK: 130- 159 MG/DL 110-129 MG/DL HIGH RISK: >160 MG/DL >130 MG/DL *CHILDREN AND ADOLESCENTS REPRESENTS INDIVIDUALA AGED 2-19 YEARS EXCLUSIVE. Osmolality-Calculated 286.3 CALC [facility] ([facility] CHRONIC KIDNEY DISEASE STAGING PER NKF: MALE GFR INTERPRETATION: 20-49 YRS: [...] DESIRABLE: <130 MG/DL <110 MG/DL BORDERLINE-HIGH RISK: 130- 159 MG/DL 110-129 MG/DL HIGH RISK: >160 MG/DL >130 MG/DL *CHILDREN AND ADOLESCENTS REPRESENTS INDIVIDUALA AGED 2-19 YEARS EXCLUSIVE. Tbili 0.18 mg/dL 0.0-1.2 [facility] ([facility] CHRONIC KIDNEY DISEASE STAGING PER NKF: MALE GFR INTERPRETATION: 20-49 YRS: [...] DESIRABLE: <130 MG/DL <110 MG/DL BORDERLINE-HIGH RISK: 130- 159 MG/DL 110-129 MG/DL HIGH RISK: >160 MG/DL >130 MG/DL *CHILDREN AND ADOLESCENTS REPRESENTS INDIVIDUALA AGED 2-19 YEARS EXCLUSIVE. eGFR 63 # [facility] ( [facility] CKD-EPI Anion Gap 23 mmol/L [facility] ([facility] CHRONIC KIDNEY DISEASE STAGING PER NKF: MALE GFR INTERPRETATION: 20-49 YRS: [...] DESIRABLE: <130 MG/DL <110 MG/DL BORDERLINE-HIGH RISK: 130- 159 MG/DL 110-129 MG/DL HIGH RISK: >160 MG/DL >130 MG/DL *CHILDREN AND ADOLESCENTS REPRESENTS INDIVIDUALA AGED 2-19 YEARS EXCLUSIVE. eGFR Non-Afr. Italian 54 # [facility] ([facility] CKD-EPI ID Date Data Source [id number] 07/09/2020 12:31:00 PM EDT [facility] ([facility] Name Value Range Interpretation Code Description Data Megan rce(s) Supporting Document(s) Thyrotropin [Units/volume] in Serum or Plasma 1.460 uIU/ML 0. 358-3.740 Normal (applies to non-numeric results) [facility] ([facility] Reagin Ab [Presence] in Serum by RPR Laboratory test result Normal (applies to non-numeric results) [facility] ([facility] Cobalamin (Vitamin B12) [Mass/volume] in Serum or Plasma 325 pg/ mL 247-911 Normal (applies to non-numeric results) [facility] ([facility] VITAMIN B12 NORMAL RANGE NORMAL 247 - 911 PG/ML INDETERMINATE 211 - 246 PG/ML DEFICIENT LESS THAN 211 PG/ML ID Date Data Source [id number] 07/09/2020 12:31:00 PM EDT [facility] ([facility] Name Value Range Interpretation Code Description Data Megan rce(s) Supporting Document(s) White Blood Count 11.1 10 4.0-10.0 Above high normal [facility] ([facility] Hematocrit 35.9 % 36.0-47.0 Below low normal [facility] ( [facility] Red Blood Count 4.20 10 4.00-5.40 Normal (applies to non-numeric results) [facility] ([facility] Hemoglobin 11.0 g/dL 12.0-15.5 Below low normal [facility] ( [facility] Mean Corpuscular HGB Conc 30.6 g/dL 32.0-36.5 Below low normal [facility] ([facility] Mean Corpuscular Hemoglobin 26.2 pg 27.0-33.0 Below low normal [facility] ([facility] Red Cell Distribution Width 15.0 % 11.5-14.5 Above high normal [facility] ([facility] Mean Corpuscular Volume 85.5 fl 80.0-96.0 Normal ( applies to non-numeric results) [facility] ([facility] ) Platelet Count, Automated 254 10 150-450 Normal (applies to non-numeric results) [facility] ([facility] ) Nucleated Red Blood Cell % 0.0 % 0-0 Normal (applies to n on-numeric results) [facility] ([facility] ID Date Data Source [id number] 06/10/2020 11:04:00 AM EDT [facility] ([facility] Name Value Range Interpretation Code Description Data Megan rce(s) Supporting Document(s) Hemoglobin A1c/Hemoglobin.total in Blood 5.8 % 4.8-5.6 Above high normal [facility] ([facility] <content>Prediabetes: 5.7 - 6.4</content >
<content>Diabetes: >6.4</content>
<content>Glycemic control for adults with diabetes: <7.0</content>
<content></content> ID Date Data Source [id number] 06/10/2020 11:03:00 AM EDT [facility] ([facility] Name Value Range Interpretation Code Description Data Megan rce(s) Supporting Document(s) Alb 150 mg/L [facility] ([facility] A/C Ratio Laboratory test result Abnormal (applies to non -numeric results) [facility] ([facility] Creatinine, Urine 200 mg/dL 10-300 [facility] ([facility] ID Date Data Source [id number] 06/10/2020 11:02:00 AM EDT [facility] ([facility] Name Value Range Interpretation Code Description Data Megan rce(s) Supporting Document(s) Urate [Mass/volume] in Serum or Plasma 5.9 mg/dL 2.4-5.7 Above hi gh normal [facility] ([facility] CLASSIFICATION CHOLESTEROL FO R ADULTS CHILDREN/ADOLESCENTS* DESIRABLE: <200 MG/DL <170 MG/DL BORDER-LINE HIGH RISK: 200-239 MG/DL 170-199 MG/DL HIGH RISK: >240 MG/DL >200 MG/DL CLASS. FOR PRIMARY LDL CHOL PREVENTION: LDL CHOL-CHILD/ADOLESCENTS* DESIRABLE: <130 MG/DL <110 MG/DL BORDERLINE-HIGH RISK: 130-159 MG/DL 110-129 MG/DL HIGH RISK: >160 MG/DL >130 MG/DL *CHILDREN AND ADOLESCENTS REPRESENTS INDIVIDUALA AGED 2-19 YEARS EXCLUSIVE.NORMAL RANGES Age WBC RBC HGB HCT MCV PLT Adult M 4.1-10.9 4.20-6.30 12.0-18.0 37.0-51.0 80-97 140-440 Adult F 4.1-10.9 4.04-5.48 12.0-18.0 37.0-51.0 80-97 140-440 0- 1 Yr 5.0-20.0 3.9-5.9 15-18 MV: 44 MV: 91 MV: 277 2-9 Yr. 6.0-17.0 3.8-5.4 11-13 MV: 37 MV: 78 MV: 300 10 Yrs. 5.0-13.0 3.8-5.4 12-15 MV: 39 MV: 80 MV: 250 NOTE: * FOR ADULT BLACK MALES AND FEMALES, NORMAL WBC IS 2.9-7.7 K/ML * FOR ADULT BLACK MALES AND FEMALES, NORMAL RBC,HGB, AND HCT IS 5% LESS SOURCE FOR DATA: [employer] 1800 OPERATION MANUAL( AUTOMATED BLOOD COUNTS AND DIFF.) APPENDIX B-3 ID Date Data Source [id number] 06/10/2020 11:02:00 AM EDT [facility] ([facility] Name Value Range Interpretation Code Description Data Megan rce(s) Supporting Document(s) Chol 181 mg/dL 0-200 [facility] CLASSIFICATION CHOLESTEROL FO R ADULTS CHILDREN/ADOLESCENTS* DESIRABLE: <200 MG/DL <170 MG/DL BORDER-LINE HIGH RISK: 200-239 MG/DL 170-199 MG/DL HIGH RISK: >240 MG/DL >200 MG/DL CLASS. FOR PRIMARY LDL CHOL PREVENTION: LDL CHOL-CHILD/ADOLESCENTS* DESIRABLE: <130 MG/DL <110 MG/DL BORDERLINE-HIGH RISK: 130-159 MG/DL 110-129 MG/DL HIGH RISK: >160 MG/DL >130 MG/DL *CHILDREN AND ADOLESCENTS REPRESENTS INDIVIDUALA AGED 2-19 YEARS EXCLUSIVE.NORMAL RANGES Age WBC RBC HGB HCT MCV PLT Adult M 4.1-10.9 4.20-6.30 12.0-18.0 37.0-51.0 80-97 140-440 Adult F 4.1-10.9 4.04-5.48 12.0-18.0 37.0-51.0 80-97 140-440 0- 1 Yr 5.0-20.0 3.9-5.9 15-18 MV: 44 MV: 91 MV: 277 2-9 Yr. 6.0-17.0 3.8-5.4 11-13 MV: 37 MV: 78 MV: 300 10 Yrs. 5.0-13.0 3.8-5.4 12-15 MV: 39 MV: 80 MV: 250 NOTE: * FOR ADULT BLACK MALES AND FEMALES, NORMAL WBC IS 2.9-7.7 K/ML * FOR ADULT BLACK MALES AND FEMALES, NORMAL RBC,HGB, AND HCT IS 5% LESS SOURCE FOR DATA: MARIA TER[employer] DYN 1800 OPERATION MANUAL( AUTOMATED BLOOD COUNTS AND DIFF.) APPENDIX B-3 Trig 166 mg/dL 40-200 [facility] ([facility] CLASSIFICATION CHOLESTEROL FO R ADULTS CHILDREN/ADOLESCENTS* DESIRABLE: <200 MG/DL <170 MG/DL BORDER-LINE HIGH RISK: 200-239 MG/DL 170-199 MG/DL HIGH RISK: >240 MG/DL >200 MG/DL CLASS. FOR PRIMARY LDL CHOL PREVENTION: LDL CHOL-CHILD/ADOLESCENTS* DESIRABLE: <130 MG/DL <110 MG/DL BORDERLINE-HIGH RISK: 130-159 MG/DL 110-129 MG/DL HIGH RISK: >160 MG/DL >130 MG/DL *CHILDREN AND ADOLESCENTS REPRESENTS INDIVIDUALA AGED 2-19 YEARS EXCLUSIVE.NORMAL RANGES Age WBC RBC HGB HCT MCV PLT Adult M 4.1-10.9 4.20-6.30 12.0-18.0 37.0-51.0 80-97 140-440 Adult F 4.1-10.9 4.04-5.48 12.0-18.0 37.0-51.0 80-97 140-440 0- 1 Yr 5.0-20.0 3.9-5.9 15-18 MV: 44 MV: 91 MV: 277 2-9 Yr. 6.0-17.0 3.8-5.4 11-13 MV: 37 MV: 78 MV: 300 10 Yrs. 5.0-13.0 3.8-5.4 12-15 MV: 39 MV: 80 MV: 250 NOTE: * FOR ADULT BLACK MALES AND FEMALES, NORMAL WBC IS 2.9-7.7 K/ML * FOR ADULT BLACK MALES AND FEMALES, NORMAL RBC,HGB, AND HCT IS 5% LESS SOURCE FOR DATA: [employer] DYN 1800 OPERATION MANUAL( AUTOMATED BLOOD COUNTS AND DIFF.) APPENDIX B-3 Cho/HDL Ratio 4.2 Calc [facility] ([facility] CLASSIFICATION CHOLESTEROL FO R ADULTS CHILDREN/ADOLESCENTS* DESIRABLE: <200 MG/DL <170 MG/DL BORDER-LINE HIGH RISK: 200-239 MG/DL 170-199 MG/DL HIGH RISK: >240 MG/DL >200 MG/DL CLASS. FOR PRIMARY LDL CHOL PREVENTION: LDL CHOL-CHILD/ADOLESCENTS* DESIRABLE: <130 MG/DL <110 MG/DL BORDERLINE-HIGH RISK: 130-159 MG/DL 110-129 MG/DL HIGH RISK: >160 MG/DL >130 MG/DL *CHILDREN AND ADOLESCENTS REPRESENTS INDIVIDUALA AGED 2-19 YEARS EXCLUSIVE.NORMAL RANGES Age WBC RBC HGB HCT MCV PLT Adult M 4.1-10.9 4.20-6.30 12.0-18.0 37.0-51.0 80-97 140-440 Adult F 4.1-10.9 4.04-5.48 12.0-18.0 37.0-51.0 80-97 140-440 0- 1 Yr 5.0-20.0 3.9-5.9 15-18 MV: 44 MV: 91 MV: 277 2-9 Yr. 6.0-17.0 3.8-5.4 11-13 MV: 37 MV: 78 MV: 300 10 Yrs. 5.0-13.0 3.8-5.4 12-15 MV: 39 MV: 80 MV: 250 NOTE: * FOR ADULT BLACK MALES AND FEMALES, NORMAL WBC IS 2.9-7.7 K/ML * FOR ADULT BLACK MALES AND FEMALES, NORMAL RBC,HGB, AND HCT IS 5% LESS SOURCE FOR DATA: [employer] DYN 1800 OPERATION MANUAL( AUTOMATED BLOOD COUNTS AND DIFF.) APPENDIX B-3 Cholesterol in HDL [Mass/volume] in Serum or Plasma 43 mg/dL 45-65 Below low normal [facility] ([facility] ) CLASSIFICATION CHOLESTEROL FO R ADULTS CHILDREN/ADOLESCENTS* DESIRABLE: <200 MG/DL <170 MG/DL BORDER-LINE HIGH RISK: 200-239 MG/DL 170-199 MG/DL HIGH RISK: >240 MG/DL >200 MG/DL CLASS. FOR PRIMARY LDL CHOL PREVENTION: LDL CHOL-CHILD/ADOLESCENTS* DESIRABLE: <130 MG/DL <110 MG/DL BORDERLINE-HIGH RISK: 130-159 MG/DL 110-129 MG/DL HIGH RISK: >160 MG/DL >130 MG/DL *CHILDREN AND ADOLESCENTS REPRESENTS INDIVIDUALA AGED 2-19 YEARS EXCLUSIVE.NORMAL RANGES Age WBC RBC HGB HCT MCV PLT Adult M 4.1-10.9 4.20-6.30 12.0-18.0 37.0-51.0 80-97 140-440 Adult F 4.1-10.9 4.04-5.48 12.0-18.0 37.0-51.0 80-97 140-440 0- 1 Yr 5.0-20.0 3.9-5.9 15-18 MV: 44 MV: 91 MV: 277 2-9 Yr. 6.0-17.0 3.8-5.4 11-13 MV: 37 MV: 78 MV: 300 10 Yrs. 5.0-13.0 3.8-5.4 12-15 MV: 39 MV: 80 MV: 250 NOTE: * FOR ADULT BLACK MALES AND FEMALES, NORMAL WBC IS 2.9-7.7 K/ML * FOR ADULT BLACK MALES AND FEMALES, NORMAL RBC,HGB, AND HCT IS 5% LESS SOURCE FOR DATA: [employer] 1800 OPERATION MANUAL( AUTOMATED BLOOD COUNTS AND DIFF.) APPENDIX B-3 LDL_C 104 Calc 75-129 [facility] CLASSIFICATION CHOLESTEROL FO R ADULTS CHILDREN/ADOLESCENTS* DESIRABLE: <200 MG/DL <170 MG/DL BORDER-LINE HIGH RISK: 200-239 MG/DL 170-199 MG/DL HIGH RISK: >240 MG/DL >200 MG/DL CLASS. FOR PRIMARY LDL CHOL PREVENTION: LDL CHOL-CHILD/ADOLESCENTS* DESIRABLE: <130 MG/DL <110 MG/DL BORDERLINE-HIGH RISK: 130-159 MG/DL 110-129 MG/DL HIGH RISK: >160 MG/DL >130 MG/DL *CHILDREN AND ADOLESCENTS REPRESENTS INDIVIDUALA AGED 2-19 YEARS EXCLUSIVE.NORMAL RANGES Age WBC RBC HGB HCT MCV PLT Adult M 4.1-10.9 4.20-6.30 12.0-18.0 37.0-51.0 80-97 140-440 Adult F 4.1-10.9 4.04-5.48 12.0-18.0 37.0-51.0 80-97 140-440 0- 1 Yr 5.0-20.0 3.9-5.9 15-18 MV: 44 MV: 91 MV: 277 2-9 Yr. 6.0-17.0 3.8-5.4 11-13 MV: 37 MV: 78 MV: 300 10 Yrs. 5.0-13.0 3.8-5.4 12-15 MV: 39 MV: 80 MV: 250 NOTE: * FOR ADULT BLACK MALES AND FEMALES, NORMAL WBC IS 2.9-7.7 K/ML * FOR ADULT BLACK MALES AND FEMALES, NORMAL RBC,HGB, AND HCT IS 5% LESS SOURCE FOR DATA: [employer] 1800 OPERATION MANUAL( AUTOMATED BLOOD COUNTS AND DIFF.) APPENDIX B-3 ID Date Data Source [id number] 06/10/2020 11:02:00 AM EDT [facility] ([facility] Name Value Range Interpretation Code Description Data Megan rce(s) Supporting Document(s) Glu 103 mg/dL 70-110 [facility] ([facility] CLASSIFICATION CHOLESTEROL FO R ADULTS CHILDREN/ADOLESCENTS* DESIRABLE: <200 MG/DL <170 MG/DL BORDER-LINE HIGH RISK: 200-239 MG/DL 170-199 MG/DL HIGH RISK: >240 MG/DL >200 MG/DL CLASS. FOR PRIMARY LDL CHOL PREVENTION: LDL CHOL-CHILD/ADOLESCENTS* DESIRABLE: <130 MG/DL <110 MG/DL BORDERLINE-HIGH RISK: 130-159 MG/DL 110-129 MG/DL HIGH RISK: >160 MG/DL >130 MG/DL *CHILDREN AND ADOLESCENTS REPRESENTS INDIVIDUALA AGED 2-19 YEARS EXCLUSIVE.NORMAL RANGES Age WBC RBC HGB HCT MCV PLT Adult M 4.1-10.9 4.20-6.30 12.0-18.0 37.0-51.0 80-97 140-440 Adult F 4.1-10.9 4.04-5.48 12.0-18.0 37.0-51.0 80-97 140-440 0- 1 Yr 5.0-20.0 3.9-5.9 15-18 MV: 44 MV: 91 MV: 277 2-9 Yr. 6.0-17.0 3.8-5.4 11-13 MV: 37 MV: 78 MV: 300 10 Yrs. 5.0-13.0 3.8-5.4 12-15 MV: 39 MV: 80 MV: 250 NOTE: * FOR ADULT BLACK MALES AND FEMALES, NORMAL WBC IS 2.9-7.7 K/ML * FOR ADULT BLACK MALES AND FEMALES, NORMAL RBC,HGB, AND HCT IS 5% LESS SOURCE FOR DATA: [employer] 1800 OPERATION MANUAL( AUTOMATED BLOOD COUNTS AND DIFF.) APPENDIX B-3 BUN/Creatinine Ratio 21.0 CALC [facility] ([facility] CLASSIFICATION CHOLESTEROL FO R ADULTS CHILDREN/ADOLESCENTS* DESIRABLE: <200 MG/DL <170 MG/DL BORDER-LINE HIGH RISK: 200-239 MG/DL 170-199 MG/DL HIGH RISK: >240 MG/DL >200 MG/DL CLASS. FOR PRIMARY LDL CHOL PREVENTION: LDL CHOL-CHILD/ADOLESCENTS* DESIRABLE: <130 MG/DL <110 MG/DL BORDERLINE-HIGH RISK: 130-159 MG/DL 110-129 MG/DL HIGH RISK: >160 MG/DL >130 MG/DL *CHILDREN AND ADOLESCENTS REPRESENTS INDIVIDUALA AGED 2-19 YEARS EXCLUSIVE.NORMAL RANGES Age WBC RBC HGB HCT MCV PLT Adult M 4.1-10.9 4.20-6.30 12.0-18.0 37.0-51.0 80-97 140-440 Adult F 4.1-10.9 4.04-5.48 12.0-18.0 37.0-51.0 80-97 140-440 0- 1 Yr 5.0-20.0 3.9-5.9 15-18 MV: 44 MV: 91 MV: 277 2-9 Yr. 6.0-17.0 3.8-5.4 11-13 MV: 37 MV: 78 MV: 300 10 Yrs. 5.0-13.0 3.8-5.4 12-15 MV: 39 MV: 80 MV: 250 NOTE: * FOR ADULT BLACK MALES AND FEMALES, NORMAL WBC IS 2.9-7.7 K/ML * FOR ADULT BLACK MALES AND FEMALES, NORMAL RBC,HGB, AND HCT IS 5% LESS SOURCE FOR DATA: [employer] 1800 OPERATION MANUAL( AUTOMATED BLOOD COUNTS AND DIFF.) APPENDIX B-3 BUN 19 mg/dL 8-23 [facility] CLASSIFICATION CHOLESTEROL FO R ADULTS CHILDREN/ADOLESCENTS* DESIRABLE: <200 MG/DL <170 MG/DL BORDER-LINE HIGH RISK: 200-239 MG/DL 170-199 MG/DL HIGH RISK: >240 MG/DL >200 MG/DL CLASS. FOR PRIMARY LDL CHOL PREVENTION: LDL CHOL-CHILD/ADOLESCENTS* DESIRABLE: <130 MG/DL <110 MG/DL BORDERLINE-HIGH RISK: 130-159 MG/DL 110-129 MG/DL HIGH RISK: >160 MG/DL >130 MG/DL *CHILDREN AND ADOLESCENTS REPRESENTS INDIVIDUALA AGED 2-19 YEARS EXCLUSIVE.NORMAL RANGES Age WBC RBC HGB HCT MCV PLT Adult M 4.1-10.9 4.20-6.30 12.0-18.0 37.0-51.0 80-97 140-440 Adult F 4.1-10.9 4.04-5.48 12.0-18.0 37.0-51.0 80-97 140-440 0- 1 Yr 5.0-20.0 3.9-5.9 15-18 MV: 44 MV: 91 MV: 277 2-9 Yr. 6.0-17.0 3.8-5.4 11-13 MV: 37 MV: 78 MV: 300 10 Yrs. 5.0-13.0 3.8-5.4 12-15 MV: 39 MV: 80 MV: 250 NOTE: * FOR ADULT BLACK MALES AND FEMALES, NORMAL WBC IS 2.9-7.7 K/ML * FOR ADULT BLACK MALES AND FEMALES, NORMAL RBC,HGB, AND HCT IS 5% LESS SOURCE FOR DATA: MARIA [employer] DYN 1800 OPERATION MANUAL( AUTOMATED BLOOD COUNTS AND DIFF.) APPENDIX B-3 Creat 0.9 mg/dL 0.5-1.0 [facility] CLASSIFICATION CHOLESTEROL FO R ADULTS CHILDREN/ADOLESCENTS* DESIRABLE: <200 MG/DL <170 MG/DL BORDER-LINE HIGH RISK: 200-239 MG/DL 170-199 MG/DL HIGH RISK: >240 MG/DL >200 MG/DL CLASS. FOR PRIMARY LDL CHOL PREVENTION: LDL CHOL-CHILD/ADOLESCENTS* DESIRABLE: <130 MG/DL <110 MG/DL BORDERLINE-HIGH RISK: 130-159 MG/DL 110-129 MG/DL HIGH RISK: >160 MG/DL >130 MG/DL *CHILDREN AND ADOLESCENTS REPRESENTS INDIVIDUALA AGED 2-19 YEARS EXCLUSIVE.NORMAL RANGES Age WBC RBC HGB HCT MCV PLT Adult M 4.1-10.9 4.20-6.30 12.0-18.0 37.0-51.0 80-97 140-440 Adult F 4.1-10.9 4.04-5.48 12.0-18.0 37.0-51.0 80-97 140-440 0- 1 Yr 5.0-20.0 3.9-5.9 15-18 MV: 44 MV: 91 MV: 277 2-9 Yr. 6.0-17.0 3.8-5.4 11-13 MV: 37 MV: 78 MV: 300 10 Yrs. 5.0-13.0 3.8-5.4 12-15 MV: 39 MV: 80 MV: 250 NOTE: * FOR ADULT BLACK MALES AND FEMALES, NORMAL WBC IS 2.9-7.7 K/ML * FOR ADULT BLACK MALES AND FEMALES, NORMAL RBC,HGB, AND HCT IS 5% LESS SOURCE FOR DATA: [employer] 1800 OPERATION MANUAL( AUTOMATED BLOOD COUNTS AND DIFF.) APPENDIX B-3 CL 103.2 mmol/L 98.0-107.0 [facility] CLASSIFICATION CHOLESTEROL FO R ADULTS CHILDREN/ADOLESCENTS* DESIRABLE: <200 MG/DL <170 MG/DL BORDER-LINE HIGH RISK: 200-239 MG/DL 170-199 MG/DL HIGH RISK: >240 MG/DL >200 MG/DL CLASS. FOR PRIMARY LDL CHOL PREVENTION: LDL CHOL-CHILD/ADOLESCENTS* DESIRABLE: <130 MG/DL <110 MG/DL BORDERLINE-HIGH RISK: 130-159 MG/DL 110-129 MG/DL HIGH RISK: >160 MG/DL >130 MG/DL *CHILDREN AND ADOLESCENTS REPRESENTS INDIVIDUALA AGED 2-19 YEARS EXCLUSIVE.NORMAL RANGES Age WBC RBC HGB HCT MCV PLT Adult M 4.1-10.9 4.20-6.30 12.0-18.0 37.0-51.0 80-97 140-440 Adult F 4.1-10.9 4.04-5.48 12.0-18.0 37.0-51.0 80-97 140-440 0- 1 Yr 5.0-20.0 3.9-5.9 15-18 MV: 44 MV: 91 MV: 277 2-9 Yr. 6.0-17.0 3.8-5.4 11-13 MV: 37 MV: 78 MV: 300 10 Yrs. 5.0-13.0 3.8-5.4 12-15 MV: 39 MV: 80 MV: 250 NOTE: * FOR ADULT BLACK MALES AND FEMALES, NORMAL WBC IS 2.9-7.7 K/ML * FOR ADULT BLACK MALES AND FEMALES, NORMAL RBC,HGB, AND HCT IS 5% LESS SOURCE FOR DATA: [employer] 1800 OPERATION MANUAL( AUTOMATED BLOOD COUNTS AND DIFF.) APPENDIX B-3 Na 141 mmol/L 136-145 [facility] ([facility] CLASSIFICATION CHOLESTEROL FO R ADULTS CHILDREN/ADOLESCENTS* DESIRABLE: <200 MG/DL <170 MG/DL BORDER-LINE HIGH RISK: 200-239 MG/DL 170-199 MG/DL HIGH RISK: >240 MG/DL >200 MG/DL CLASS. FOR PRIMARY LDL CHOL PREVENTION: LDL CHOL-CHILD/ADOLESCENTS* DESIRABLE: <130 MG/DL <110 MG/DL BORDERLINE-HIGH RISK: 130-159 MG/DL 110-129 MG/DL HIGH RISK: >160 MG/DL >130 MG/DL *CHILDREN AND ADOLESCENTS REPRESENTS INDIVIDUALA AGED 2-19 YEARS EXCLUSIVE.NORMAL RANGES Age WBC RBC HGB HCT MCV PLT Adult M 4.1-10.9 4.20-6.30 12.0-18.0 37.0-51.0 80-97 140-440 Adult F 4.1-10.9 4.04-5.48 12.0-18.0 37.0-51.0 80-97 140-440 0- 1 Yr 5.0-20.0 3.9-5.9 15-18 MV: 44 MV: 91 MV: 277 2-9 Yr. 6.0-17.0 3.8-5.4 11-13 MV: 37 MV: 78 MV: 300 10 Yrs. 5.0-13.0 3.8-5.4 12-15 MV: 39 MV: 80 MV: 250 NOTE: * FOR ADULT BLACK MALES AND FEMALES, NORMAL WBC IS 2.9-7.7 K/ML * FOR ADULT BLACK MALES AND FEMALES, NORMAL RBC,HGB, AND HCT IS 5% LESS SOURCE FOR DATA: [employer] DYN 1800 OPERATION MANUAL( AUTOMATED BLOOD COUNTS AND DIFF.) APPENDIX B-3 K 4.3 mmol/L 3.5-5.1 [facility] ([facility] CLASSIFICATION CHOLESTEROL FO R ADULTS CHILDREN/ADOLESCENTS* DESIRABLE: <200 MG/DL <170 MG/DL BORDER-LINE HIGH RISK: 200-239 MG/DL 170-199 MG/DL HIGH RISK: >240 MG/DL >200 MG/DL CLASS. FOR PRIMARY LDL CHOL PREVENTION: LDL CHOL-CHILD/ADOLESCENTS* DESIRABLE: <130 MG/DL <110 MG/DL BORDERLINE-HIGH RISK: 130-159 MG/DL 110-129 MG/DL HIGH RISK: >160 MG/DL >130 MG/DL *CHILDREN AND ADOLESCENTS REPRESENTS INDIVIDUALA AGED 2-19 YEARS EXCLUSIVE.NORMAL RANGES Age WBC RBC HGB HCT MCV PLT Adult M 4.1-10.9 4.20-6.30 12.0-18.0 37.0-51.0 80-97 140-440 Adult F 4.1-10.9 4.04-5.48 12.0-18.0 37.0-51.0 80-97 140-440 0- 1 Yr 5.0-20.0 3.9-5.9 15-18 MV: 44 MV: 91 MV: 277 2-9 Yr. 6.0-17.0 3.8-5.4 11-13 MV: 37 MV: 78 MV: 300 10 Yrs. 5.0-13.0 3.8-5.4 12-15 MV: 39 MV: 80 MV: 250 NOTE: * FOR ADULT BLACK MALES AND FEMALES, NORMAL WBC IS 2.9-7.7 K/ML * FOR ADULT BLACK MALES AND FEMALES, NORMAL RBC,HGB, AND HCT IS 5% LESS SOURCE FOR DATA: MARIA TERESA [employer] 1800 OPERATION MANUAL( AUTOMATED BLOOD COUNTS AND DIFF.) APPENDIX B-3 CA 9.6 mg/dL 8.6-10.2 [facility] ([facility] CLASSIFICATION CHOLESTEROL FO R ADULTS CHILDREN/ADOLESCENTS* DESIRABLE: <200 MG/DL <170 MG/DL BORDER-LINE HIGH RISK: 200-239 MG/DL 170-199 MG/DL HIGH RISK: >240 MG/DL >200 MG/DL CLASS. FOR PRIMARY LDL CHOL PREVENTION: LDL CHOL-CHILD/ADOLESCENTS* DESIRABLE: <130 MG/DL <110 MG/DL BORDERLINE-HIGH RISK: 130-159 MG/DL 110-129 MG/DL HIGH RISK: >160 MG/DL >130 MG/DL *CHILDREN AND ADOLESCENTS REPRESENTS INDIVIDUALA AGED 2-19 YEARS EXCLUSIVE.NORMAL RANGES Age WBC RBC HGB HCT MCV PLT Adult M 4.1-10.9 4.20-6.30 12.0-18.0 37.0-51.0 80-97 140-440 Adult F 4.1-10.9 4.04-5.48 12.0-18.0 37.0-51.0 80-97 140-440 0- 1 Yr 5.0-20.0 3.9-5.9 15-18 MV: 44 MV: 91 MV: 277 2-9 Yr. 6.0-17.0 3.8-5.4 11-13 MV: 37 MV: 78 MV: 300 10 Yrs. 5.0-13.0 3.8-5.4 12-15 MV: 39 MV: 80 MV: 250 NOTE: * FOR ADULT BLACK MALES AND FEMALES, NORMAL WBC IS 2.9-7.7 K/ML * FOR ADULT BLACK MALES AND FEMALES, NORMAL RBC,HGB, AND HCT IS 5% LESS SOURCE FOR DATA: [employer] 1800 OPERATION MANUAL( AUTOMATED BLOOD COUNTS AND DIFF.) APPENDIX B-3 TP 6.1 g/dL 6.6-8.7 Below low normal [facility] ( [facility] CLASSIFICATION CHOLESTEROL FO R ADULTS CHILDREN/ADOLESCENTS* DESIRABLE: <200 MG/DL <170 MG/DL BORDER-LINE HIGH RISK: 200-239 MG/DL 170-199 MG/DL HIGH RISK: >240 MG/DL >200 MG/DL CLASS. FOR PRIMARY LDL CHOL PREVENTION: LDL CHOL-CHILD/ADOLESCENTS* DESIRABLE: <130 MG/DL <110 MG/DL BORDERLINE-HIGH RISK: 130-159 MG/DL 110-129 MG/DL HIGH RISK: >160 MG/DL >130 MG/DL *CHILDREN AND ADOLESCENTS REPRESENTS INDIVIDUALA AGED 2-19 YEARS EXCLUSIVE.NORMAL RANGES Age WBC RBC HGB HCT MCV PLT Adult M 4.1-10.9 4.20-6.30 12.0-18.0 37.0-51.0 80-97 140-440 Adult F 4.1-10.9 4.04-5.48 12.0-18.0 37.0-51.0 80-97 140-440 0- 1 Yr 5.0-20.0 3.9-5.9 15-18 MV: 44 MV: 91 MV: 277 2-9 Yr. 6.0-17.0 3.8-5.4 11-13 MV: 37 MV: 78 MV: 300 10 Yrs. 5.0-13.0 3.8-5.4 12-15 MV: 39 MV: 80 MV: 250 NOTE: * FOR ADULT BLACK MALES AND FEMALES, NORMAL WBC IS 2.9-7.7 K/ML * FOR ADULT BLACK MALES AND FEMALES, NORMAL RBC,HGB, AND HCT IS 5% LESS SOURCE FOR DATA: MARIA TER[employer] DYN 1800 OPERATION MANUAL( AUTOMATED BLOOD COUNTS AND DIFF.) APPENDIX B-3 Co2 24.5 mmol/L 22.0-29.0 [facility] CLASSIFICATION CHOLESTEROL FO R ADULTS CHILDREN/ADOLESCENTS* DESIRABLE: <200 MG/DL <170 MG/DL BORDER-LINE HIGH RISK: 200-239 MG/DL 170-199 MG/DL HIGH RISK: >240 MG/DL >200 MG/DL CLASS. FOR PRIMARY LDL CHOL PREVENTION: LDL CHOL-CHILD/ADOLESCENTS* DESIRABLE: <130 MG/DL <110 MG/DL BORDERLINE-HIGH RISK: 130-159 MG/DL 110-129 MG/DL HIGH RISK: >160 MG/DL >130 MG/DL *CHILDREN AND ADOLESCENTS REPRESENTS INDIVIDUALA AGED 2-19 YEARS EXCLUSIVE.NORMAL RANGES Age WBC RBC HGB HCT MCV PLT Adult M 4.1-10.9 4.20-6.30 12.0-18.0 37.0-51.0 80-97 140-440 Adult F 4.1-10.9 4.04-5.48 12.0-18.0 37.0-51.0 80-97 140-440 0- 1 Yr 5.0-20.0 3.9-5.9 15-18 MV: 44 MV: 91 MV: 277 2-9 Yr. 6.0-17.0 3.8-5.4 11-13 MV: 37 MV: 78 MV: 300 10 Yrs. 5.0-13.0 3.8-5.4 12-15 MV: 39 MV: 80 MV: 250 NOTE: * FOR ADULT BLACK MALES AND FEMALES, NORMAL WBC IS 2.9-7.7 K/ML * FOR ADULT BLACK MALES AND FEMALES, NORMAL RBC,HGB, AND HCT IS 5% LESS SOURCE FOR DATA: [employer] DYN 1800 OPERATION MANUAL( AUTOMATED BLOOD COUNTS AND DIFF.) APPENDIX B-3 Alp 124.1 U/L 35-129 [facility] CLASSIFICATION CHOLESTEROL FO R ADULTS CHILDREN/ADOLESCENTS* DESIRABLE: <200 MG/DL <170 MG/DL BORDER-LINE HIGH RISK: 200-239 MG/DL 170-199 MG/DL HIGH RISK: >240 MG/DL >200 MG/DL CLASS. FOR PRIMARY LDL CHOL PREVENTION: LDL CHOL-CHILD/ADOLESCENTS* DESIRABLE: <130 MG/DL <110 MG/DL BORDERLINE-HIGH RISK: 130-159 MG/DL 110-129 MG/DL HIGH RISK: >160 MG/DL >130 MG/DL *CHILDREN AND ADOLESCENTS REPRESENTS INDIVIDUALA AGED 2-19 YEARS EXCLUSIVE.NORMAL RANGES Age WBC RBC HGB HCT MCV PLT Adult M 4.1-10.9 4.20-6.30 12.0-18.0 37.0-51.0 80-97 140-440 Adult F 4.1-10.9 4.04-5.48 12.0-18.0 37.0-51.0 80-97 140-440 0- 1 Yr 5.0-20.0 3.9-5.9 15-18 MV: 44 MV: 91 MV: 277 2-9 Yr. 6.0-17.0 3.8-5.4 11-13 MV: 37 MV: 78 MV: 300 10 Yrs. 5.0-13.0 3.8-5.4 12-15 MV: 39 MV: 80 MV: 250 NOTE: * FOR ADULT BLACK MALES AND FEMALES, NORMAL WBC IS 2.9-7.7 K/ML * FOR ADULT BLACK MALES AND FEMALES, NORMAL RBC,HGB, AND HCT IS 5% LESS SOURCE FOR DATA: [employer] 1800 OPERATION MANUAL( AUTOMATED BLOOD COUNTS AND DIFF.) APPENDIX B-3 Globulin 2.1 [facility] CLASSIFICATION CHOLESTEROL FO R ADULTS CHILDREN/ADOLESCENTS* DESIRABLE: <200 MG/DL <170 MG/DL BORDER-LINE HIGH RISK: 200-239 MG/DL 170-199 MG/DL HIGH RISK: >240 MG/DL >200 MG/DL CLASS. FOR PRIMARY LDL CHOL PREVENTION: LDL CHOL-CHILD/ADOLESCENTS* DESIRABLE: <130 MG/DL <110 MG/DL BORDERLINE-HIGH RISK: 130-159 MG/DL 110-129 MG/DL HIGH RISK: >160 MG/DL >130 MG/DL *CHILDREN AND ADOLESCENTS REPRESENTS INDIVIDUALA AGED 2-19 YEARS EXCLUSIVE.NORMAL RANGES Age WBC RBC HGB HCT MCV PLT Adult M 4.1-10.9 4.20-6.30 12.0-18.0 37.0-51.0 80-97 140-440 Adult F 4.1-10.9 4.04-5.48 12.0-18.0 37.0-51.0 80-97 140-440 0- 1 Yr 5.0-20.0 3.9-5.9 15-18 MV: 44 MV: 91 MV: 277 2-9 Yr. 6.0-17.0 3.8-5.4 11-13 MV: 37 MV: 78 MV: 300 10 Yrs. 5.0-13.0 3.8-5.4 12-15 MV: 39 MV: 80 MV: 250 NOTE: * FOR ADULT BLACK MALES AND FEMALES, NORMAL WBC IS 2.9-7.7 K/ML * FOR ADULT BLACK MALES AND FEMALES, NORMAL RBC,HGB, AND HCT IS 5% LESS SOURCE FOR DATA: [employer] 1800 OPERATION MANUAL( AUTOMATED BLOOD COUNTS AND DIFF.) APPENDIX B-3 A/G Ratio 1.9 [facility] CLASSIFICATION CHOLESTEROL FO R ADULTS CHILDREN/ADOLESCENTS* DESIRABLE: <200 MG/DL <170 MG/DL BORDER-LINE HIGH RISK: 200-239 MG/DL 170-199 MG/DL HIGH RISK: >240 MG/DL >200 MG/DL CLASS. FOR PRIMARY LDL CHOL PREVENTION: LDL CHOL-CHILD/ADOLESCENTS* DESIRABLE: <130 MG/DL <110 MG/DL BORDERLINE-HIGH RISK: 130-159 MG/DL 110-129 MG/DL HIGH RISK: >160 MG/DL >130 MG/DL *CHILDREN AND ADOLESCENTS REPRESENTS INDIVIDUALA AGED 2-19 YEARS EXCLUSIVE.NORMAL RANGES Age WBC RBC HGB HCT MCV PLT Adult M 4.1-10.9 4.20-6.30 12.0-18.0 37.0-51.0 80-97 140-440 Adult F 4.1-10.9 4.04-5.48 12.0-18.0 37.0-51.0 80-97 140-440 0- 1 Yr 5.0-20.0 3.9-5.9 15-18 MV: 44 MV: 91 MV: 277 2-9 Yr. 6.0-17.0 3.8-5.4 11-13 MV: 37 MV: 78 MV: 300 10 Yrs. 5.0-13.0 3.8-5.4 12-15 MV: 39 MV: 80 MV: 250 NOTE: * FOR ADULT BLACK MALES AND FEMALES, NORMAL WBC IS 2.9-7.7 K/ML * FOR ADULT BLACK MALES AND FEMALES, NORMAL RBC,HGB, AND HCT IS 5% LESS SOURCE FOR DATA: [employer] 1800 OPERATION MANUAL( AUTOMATED BLOOD COUNTS AND DIFF.) APPENDIX B-3 Alb 4.0 g/dL 3.4-4.8 [facility] CLASSIFICATION CHOLESTEROL FO R ADULTS CHILDREN/ADOLESCENTS* DESIRABLE: <200 MG/DL <170 MG/DL BORDER-LINE HIGH RISK: 200-239 MG/DL 170-199 MG/DL HIGH RISK: >240 MG/DL >200 MG/DL CLASS. FOR PRIMARY LDL CHOL PREVENTION: LDL CHOL-CHILD/ADOLESCENTS* DESIRABLE: <130 MG/DL <110 MG/DL BORDERLINE-HIGH RISK: 130-159 MG/DL 110-129 MG/DL HIGH RISK: >160 MG/DL >130 MG/DL *CHILDREN AND ADOLESCENTS REPRESENTS INDIVIDUALA AGED 2-19 YEARS EXCLUSIVE.NORMAL RANGES Age WBC RBC HGB HCT MCV PLT Adult M 4.1-10.9 4.20-6.30 12.0-18.0 37.0-51.0 80-97 140-440 Adult F 4.1-10.9 4.04-5.48 12.0-18.0 37.0-51.0 80-97 140-440 0- 1 Yr 5.0-20.0 3.9-5.9 15-18 MV: 44 MV: 91 MV: 277 2-9 Yr. 6.0-17.0 3.8-5.4 11-13 MV: 37 MV: 78 MV: 300 10 Yrs. 5.0-13.0 3.8-5.4 12-15 MV: 39 MV: 80 MV: 250 NOTE: * FOR ADULT BLACK MALES AND FEMALES, NORMAL WBC IS 2.9-7.7 K/ML * FOR ADULT BLACK MALES AND FEMALES, NORMAL RBC,HGB, AND HCT IS 5% LESS SOURCE FOR DATA: [employer] 1800 OPERATION MANUAL( AUTOMATED BLOOD COUNTS AND DIFF.) APPENDIX B-3 Alt (SGPT) 6 U/L 0-41 [facility] CLASSIFICATION CHOLESTEROL FO R ADULTS CHILDREN/ADOLESCENTS* DESIRABLE: <200 MG/DL <170 MG/DL BORDER-LINE HIGH RISK: 200-239 MG/DL 170-199 MG/DL HIGH RISK: >240 MG/DL >200 MG/DL CLASS. FOR PRIMARY LDL CHOL PREVENTION: LDL CHOL-CHILD/ADOLESCENTS* DESIRABLE: <130 MG/DL <110 MG/DL BORDERLINE-HIGH RISK: 130-159 MG/DL 110-129 MG/DL HIGH RISK: >160 MG/DL >130 MG/DL *CHILDREN AND ADOLESCENTS REPRESENTS INDIVIDUALA AGED 2-19 YEARS EXCLUSIVE.NORMAL RANGES Age WBC RBC HGB HCT MCV PLT Adult M 4.1-10.9 4.20-6.30 12.0-18.0 37.0-51.0 80-97 140-440 Adult F 4.1-10.9 4.04-5.48 12.0-18.0 37.0-51.0 80-97 140-440 0- 1 Yr 5.0-20.0 3.9-5.9 15-18 MV: 44 MV: 91 MV: 277 2-9 Yr. 6.0-17.0 3.8-5.4 11-13 MV: 37 MV: 78 MV: 300 10 Yrs. 5.0-13.0 3.8-5.4 12-15 MV: 39 MV: 80 MV: 250 NOTE: * FOR ADULT BLACK MALES AND FEMALES, NORMAL WBC IS 2.9-7.7 K/ML * FOR ADULT BLACK MALES AND FEMALES, NORMAL RBC,HGB, AND HCT IS 5% LESS SOURCE FOR DATA: MARIA TERESA DYN 1800 OPERATION MANUAL( AUTOMATED BLOOD COUNTS AND DIFF.) APPENDIX B-3 Ast (Sgot) 11 U/L 0-40 [facility] CLASSIFICATION CHOLESTEROL FO R ADULTS CHILDREN/ADOLESCENTS* DESIRABLE: <200 MG/DL <170 MG/DL BORDER-LINE HIGH RISK: 200-239 MG/DL 170-199 MG/DL HIGH RISK: >240 MG/DL >200 MG/DL CLASS. FOR PRIMARY LDL CHOL PREVENTION: LDL CHOL-CHILD/ADOLESCENTS* DESIRABLE: <130 MG/DL <110 MG/DL BORDERLINE-HIGH RISK: 130-159 MG/DL 110-129 MG/DL HIGH RISK: >160 MG/DL >130 MG/DL *CHILDREN AND ADOLESCENTS REPRESENTS INDIVIDUALA AGED 2-19 YEARS EXCLUSIVE.NORMAL RANGES Age WBC RBC HGB HCT MCV PLT Adult M 4.1-10.9 4.20-6.30 12.0-18.0 37.0-51.0 80-97 140-440 Adult F 4.1-10.9 4.04-5.48 12.0-18.0 37.0-51.0 80-97 140-440 0- 1 Yr 5.0-20.0 3.9-5.9 15-18 MV: 44 MV: 91 MV: 277 2-9 Yr. 6.0-17.0 3.8-5.4 11-13 MV: 37 MV: 78 MV: 300 10 Yrs. 5.0-13.0 3.8-5.4 12-15 MV: 39 MV: 80 MV: 250 NOTE: * FOR ADULT BLACK MALES AND FEMALES, NORMAL WBC IS 2.9-7.7 K/ML * FOR ADULT BLACK MALES AND FEMALES, NORMAL RBC,HGB, AND HCT IS 5% LESS SOURCE FOR DATA: MARIA TERESA DYN 1800 OPERATION MANUAL( AUTOMATED BLOOD COUNTS AND DIFF.) APPENDIX B-3 Tbili 0.25 mg/dL 0.0-1.2 [facility] CLASSIFICATION CHOLESTEROL FO R ADULTS CHILDREN/ADOLESCENTS* DESIRABLE: <200 MG/DL <170 MG/DL BORDER-LINE HIGH RISK: 200-239 MG/DL 170-199 MG/DL HIGH RISK: >240 MG/DL >200 MG/DL CLASS. FOR PRIMARY LDL CHOL PREVENTION: LDL CHOL-CHILD/ADOLESCENTS* DESIRABLE: <130 MG/DL <110 MG/DL BORDERLINE-HIGH RISK: 130-159 MG/DL 110-129 MG/DL HIGH RISK: >160 MG/DL >130 MG/DL *CHILDREN AND ADOLESCENTS REPRESENTS INDIVIDUALA AGED 2-19 YEARS EXCLUSIVE.NORMAL RANGES Age WBC RBC HGB HCT MCV PLT Adult M 4.1-10.9 4.20-6.30 12.0-18.0 37.0-51.0 80-97 140-440 Adult F 4.1-10.9 4.04-5.48 12.0-18.0 37.0-51.0 80-97 140-440 0- 1 Yr 5.0-20.0 3.9-5.9 15-18 MV: 44 MV: 91 MV: 277 2-9 Yr. 6.0-17.0 3.8-5.4 11-13 MV: 37 MV: 78 MV: 300 10 Yrs. 5.0-13.0 3.8-5.4 12-15 MV: 39 MV: 80 MV: 250 NOTE: * FOR ADULT BLACK MALES AND FEMALES, NORMAL WBC IS 2.9-7.7 K/ML * FOR ADULT BLACK MALES AND FEMALES, NORMAL RBC,HGB, AND HCT IS 5% LESS SOURCE FOR DATA: [employer] D[employer] 1800 OPERATION MANUAL( AUTOMATED BLOOD COUNTS AND DIFF.) APPENDIX B-3 eGFR 72 # [facility] ( [facility] CLASSIFICATION CHOLESTEROL FO R ADULTS CHILDREN/ADOLESCENTS* DESIRABLE: <200 MG/DL <170 MG/DL BORDER-LINE HIGH RISK: 200-239 MG/DL 170-199 MG/DL HIGH RISK: >240 MG/DL >200 MG/DL CLASS. FOR PRIMARY LDL CHOL PREVENTION: LDL CHOL-CHILD/ADOLESCENTS* DESIRABLE: <130 MG/DL <110 MG/DL BORDERLINE-HIGH RISK: 130-159 MG/DL 110-129 MG/DL HIGH RISK: >160 MG/DL >130 MG/DL *CHILDREN AND ADOLESCENTS REPRESENTS INDIVIDUALA AGED 2-19 YEARS EXCLUSIVE.NORMAL RANGES Age WBC RBC HGB HCT MCV PLT Adult M 4.1-10.9 4.20-6.30 12.0-18.0 37.0-51.0 80-97 140-440 Adult F 4.1-10.9 4.04-5.48 12.0-18.0 37.0-51.0 80-97 140-440 0- 1 Yr 5.0-20.0 3.9-5.9 15-18 MV: 44 MV: 91 MV: 277 2-9 Yr. 6.0-17.0 3.8-5.4 11-13 MV: 37 MV: 78 MV: 300 10 Yrs. 5.0-13.0 3.8-5.4 12-15 MV: 39 MV: 80 MV: 250 NOTE: * FOR ADULT BLACK MALES AND FEMALES, NORMAL WBC IS 2.9-7.7 K/ML * FOR ADULT BLACK MALES AND FEMALES, NORMAL RBC,HGB, AND HCT IS 5% LESS SOURCE FOR DATA: MARIA TER[employer] DYN 1800 OPERATION MANUAL( AUTOMATED BLOOD COUNTS AND DIFF.) APPENDIX B-3 Anion Gap 18 mmol/L [facility] ([facility] CLASSIFICATION CHOLESTEROL FO R ADULTS CHILDREN/ADOLESCENTS* DESIRABLE: <200 MG/DL <170 MG/DL BORDER-LINE HIGH RISK: 200-239 MG/DL 170-199 MG/DL HIGH RISK: >240 MG/DL >200 MG/DL CLASS. FOR PRIMARY LDL CHOL PREVENTION: LDL CHOL-CHILD/ADOLESCENTS* DESIRABLE: <130 MG/DL <110 MG/DL BORDERLINE-HIGH RISK: 130-159 MG/DL 110-129 MG/DL HIGH RISK: >160 MG/DL >130 MG/DL *CHILDREN AND ADOLESCENTS REPRESENTS INDIVIDUALA AGED 2-19 YEARS EXCLUSIVE.NORMAL RANGES Age WBC RBC HGB HCT MCV PLT Adult M 4.1-10.9 4.20-6.30 12.0-18.0 37.0-51.0 80-97 140-440 Adult F 4.1-10.9 4.04-5.48 12.0-18.0 37.0-51.0 80-97 140-440 0- 1 Yr 5.0-20.0 3.9-5.9 15-18 MV: 44 MV: 91 MV: 277 2-9 Yr. 6.0-17.0 3.8-5.4 11-13 MV: 37 MV: 78 MV: 300 10 Yrs. 5.0-13.0 3.8-5.4 12-15 MV: 39 MV: 80 MV: 250 NOTE: * FOR ADULT BLACK MALES AND FEMALES, NORMAL WBC IS 2.9-7.7 K/ML * FOR ADULT BLACK MALES AND FEMALES, NORMAL RBC,HGB, AND HCT IS 5% LESS SOURCE FOR DATA: MARIA TERESA DYN 1800 OPERATION MANUAL( AUTOMATED BLOOD COUNTS AND DIFF.) APPENDIX B-3 Osmolality-Calculated 283.8 [facility] ([facility] CLASSIFICATION CHOLESTEROL FO R ADULTS CHILDREN/ADOLESCENTS* DESIRABLE: <200 MG/DL <170 MG/DL BORDER-LINE HIGH RISK: 200-239 MG/DL 170-199 MG/DL HIGH RISK: >240 MG/DL >200 MG/DL CLASS. FOR PRIMARY LDL CHOL PREVENTION: LDL CHOL-CHILD/ADOLESCENTS* DESIRABLE: <130 MG/DL <110 MG/DL BORDERLINE-HIGH RISK: 130-159 MG/DL 110-129 MG/DL HIGH RISK: >160 MG/DL >130 MG/DL *CHILDREN AND ADOLESCENTS REPRESENTS INDIVIDUALA AGED 2-19 YEARS EXCLUSIVE.NORMAL RANGES Age WBC RBC HGB HCT MCV PLT Adult M 4.1-10.9 4.20-6.30 12.0-18.0 37.0-51.0 80-97 140-440 Adult F 4.1-10.9 4.04-5.48 12.0-18.0 37.0-51.0 80-97 140-440 0- 1 Yr 5.0-20.0 3.9-5.9 15-18 MV: 44 MV: 91 MV: 277 2-9 Yr. 6.0-17.0 3.8-5.4 11-13 MV: 37 MV: 78 MV: 300 10 Yrs. 5.0-13.0 3.8-5.4 12-15 MV: 39 MV: 80 MV: 250 NOTE: * FOR ADULT BLACK MALES AND FEMALES, NORMAL WBC IS 2.9-7.7 K/ML * FOR ADULT BLACK MALES AND FEMALES, NORMAL RBC,HGB, AND HCT IS 5% LESS SOURCE FOR DATA: MARIA TERESA DYN 1800 OPERATION MANUAL( AUTOMATED BLOOD COUNTS AND DIFF.) APPENDIX B-3 eGFR Non-Afr. Italian 62 # [facility] ([facility] CLASSIFICATION CHOLESTEROL FO R ADULTS CHILDREN/ADOLESCENTS* DESIRABLE: <200 MG/DL <170 MG/DL BORDER-LINE HIGH RISK: 200-239 MG/DL 170-199 MG/DL HIGH RISK: >240 MG/DL >200 MG/DL CLASS. FOR PRIMARY LDL CHOL PREVENTION: LDL CHOL-CHILD/ADOLESCENTS* DESIRABLE: <130 MG/DL <110 MG/DL BORDERLINE-HIGH RISK: 130-159 MG/DL 110-129 MG/DL HIGH RISK: >160 MG/DL >130 MG/DL *CHILDREN AND ADOLESCENTS REPRESENTS INDIVIDUALA AGED 2-19 YEARS EXCLUSIVE.NORMAL RANGES Age WBC RBC HGB HCT MCV PLT Adult M 4.1-10.9 4.20-6.30 12.0-18.0 37.0-51.0 80-97 140-440 Adult F 4.1-10.9 4.04-5.48 12.0-18.0 37.0-51.0 80-97 140-440 0- 1 Yr 5.0-20.0 3.9-5.9 15-18 MV: 44 MV: 91 MV: 277 2-9 Yr. 6.0-17.0 3.8-5.4 11-13 MV: 37 MV: 78 MV: 300 10 Yrs. 5.0-13.0 3.8-5.4 12-15 MV: 39 MV: 80 MV: 250 NOTE: * FOR ADULT BLACK MALES AND FEMALES, NORMAL WBC IS 2.9-7.7 K/ML * FOR ADULT BLACK MALES AND FEMALES, NORMAL RBC,HGB, AND HCT IS 5% LESS SOURCE FOR DATA: [employer] 1800 OPERATION MANUAL( AUTOMATED BLOOD COUNTS AND DIFF.) APPENDIX B-3 Procedure Social History Code Duration Value Status Description Data Source(s ) Smoking 06/27/2020 03:32:03 PM EDT Never smoked tobacco (findi ng) completed Never smoked tobacco (finding) [facility] ([facility]) Smoking 06/27/2020 03:24:54 PM EDT Never smoked tobacco (findi ng) completed Never smoked tobacco (finding) [facility] ([facility]) Smoking 06/27/2020 03:14:56 PM EDT Never smoked tobacco (findi ng) completed Never smoked tobacco (finding) [facility] ([facility]) Smoking 06/27/2020 03:05:44 PM EDT Never smoked tobacco (findi ng) completed Never smoked tobacco (finding) [facility] ([facility]) Smoking 06/27/2020 02:42:29 PM EDT Never smoked tobacco (findi ng) completed Never smoked tobacco (finding) [facility] ([facility]) Vital Signs ID Date Data Source UNK Name Value Range Interpretation Code Description Data Source(s) Systolic blood pressure 124 mm[Hg] 124 mm[Hg] M [facility] ([facility] Diastolic blood pressure 76 mm[Hg] 76 mm[Hg] [facility] ([facility] Body temperature 97.8 [degF] 97.8 [degF] [facility] ([facility] Heart rate 66 /min 66 /min [facility] ([facility] Respiratory rate 12 /min 12 /min [facility] ( [facility] Body height 62 [in_i] 62 [in_i] [facility] ([facility] 5'2" Body weight 193.00 [lb_av] 193.00 [lb_av] [facility] ([facility] [place] body weight 110 [lb_av] 110 [lb_av] [facility] ([facility] Body mass index (BMI) [Ratio] 35.3 kg/m2 35.3 k g/m2 [facility] ([facility] Oxygen saturation in Arterial blood by Pulse oximetry 94 % 94 % [facility] ([facility] Systolic blood pressure 122 mm[Hg] 122 mm[Hg] M [facility] ([facility] Body mass index (BMI) [Ratio] 34.6 kg/m2 34.6 k g/m2 [facility] ([facility] Oxygen saturation in Arterial blood by Pulse oximetry 97 % 97 % [facility] ([facility] [place] body weight 110 [lb_av] 110 [lb_av] [facility] ([facility] Diastolic blood pressure 78 mm[Hg] 78 mm[Hg] [facility] ([facility] Body temperature 97.3 [degF] 97.3 [degF] [facility] ([facility] Heart rate 56 /min 56 /min [facility] ([facility] Respiratory rate 16 /min 16 /min [facility] ( [facility] Body height 62 [in_i] 62 [in_i] [facility] ([facility] 5'2" Body weight 189.00 [lb_av] 189.00 [lb_av] [facility] ([facility] Heart rate 58 /min 58 /min [facility] ([facility] Systolic blood pressure 122 mm[Hg] 122 mm[Hg] M [facility] ([facility] Diastolic blood pressure 68 mm[Hg] 68 mm[Hg] [facility] ([facility] Respiratory rate 14 /min 14 /min [facility] ( [facility] Body temperature 97.9 [degF] 97.9 [degF] [facility] ([facility] [place] body weight 110 [lb_av] 110 [lb_av] [facility] ([facility] Body height 62 [in_i] 62 [in_i] [facility] 5'2" Body weight 187.00 [lb_av] 187.00 [lb_av] [facility] ([facility] Oxygen saturation in Arterial blood by Pulse oximetry 98 % 98 % [facility] Body mass index (BMI) [Ratio] 34.2 kg/m2 34.2 k g/m2 [facility] ([facility] Body weight 82.555 kg 82.555 kg [facility] ([facility]) Heart rate 51 /min 51 /min [facility] ([facility]) Diastolic blood pressure 74 mm[Hg] 74 mm[Hg] [facility] ([facility]) Body height 62 [in_i] 62 [in_i] [facility] ([facility]) 5'2" Body temperature 98.3 [degF] 98.3 [degF] [facility] ([facility]) Body weight 182.00 [lb_av] 182.00 [lb_av] [facility] ([facility]) Body mass index (BMI) [Ratio] 33.3 kg/m2 33.3 k g/m2 [facility] ([facility]) [place] body weight 110 [lb_av] 110 [lb_av] [facility] ([facility]) Body surface area Derived from formula 1.84 m2 1.84 m2 [facility] ([facility]) Systolic blood pressure 154 mm[Hg] 154 mm[Hg] [facility] ([facility]) Systolic blood pressure 164 mm[Hg] 164 mm[Hg] [facility] ([facility]) Diastolic blood pressure 80 mm[Hg] 80 mm[Hg] [facility] ([facility]) Heart rate 65 /min 65 /min [facility] ([facility]) Body temperature 98.4 [degF] 98.4 [degF] [facility] ([facility]) Body height 62 [in_i] 62 [in_i] [facility] ([facility]) 5'2" Body weight 184.12 [lb_av] 184.12 [lb_av] [facility] ([facility]) Body mass index (BMI) [Ratio] 33.7 kg/m2 33.7 k g/m2 [facility] ([facility]) [place] body weight 110 [lb_av] 110 [lb_av] [facility] ([facility], ) Body weight 83.519 kg 83.519 kg [facility] ([facility], ) Body surface area Derived from formula 1.85 m2 1.85 m2 [facility] ([facility], ) Heart rate 56 /min 56 /min [facility] ([facility] Respiratory rate 16 /min 16 /min [facility] ( [facility] Body mass index (BMI) [Ratio] 33.7 kg/m2 33.7 k g/m2 [facility] ([facility] Body height 62 [in_i] 62 [in_i] [facility] ([facility] 5'2" Body weight 184.00 [lb_av] 184.00 [lb_av] [facility] ([facility] [place] body weight 110 [lb_av] 110 [lb_av] [facility] ([facility] Oxygen saturation in Arterial blood by Pulse oximetry 96 % 96 % [facility] ([facility] Systolic blood pressure 124 mm[Hg] 124 mm[Hg] [facility] ([facility] Diastolic blood pressure 78 mm[Hg] 78 mm[Hg] [facility] ([facility] Body temperature 97.5 [degF] 97.5 [degF] [facility] ([facility] Body height 62 [in_i] 62 [in_i] [facility] ([facility] 5'2" Systolic blood pressure 114 mm[Hg] 114 mm[Hg] M [facility] ([facility] Body weight 180.00 [lb_av] 180.00 [lb_av] [facility] ([facility] [place] body weight 110 [lb_av] 110 [lb_av] [facility] ([facility] Body mass index (BMI) [Ratio] 32.9 kg/m2 32.9 k g/m2 [facility] ([facility] Diastolic blood pressure 76 mm[Hg] 76 mm[Hg] [facility] ([facility] Body temperature 97.5 [degF] 97.5 [degF] [facility] ([facility] Heart rate 80 /min 80 /min [facility] ([facility] Respiratory rate 16 /min 16 /min [facility] ( [facility] Oxygen saturation in Arterial blood by Pulse oximetry 95 % 95 % [facility] ([facility] Respiratory rate 12 /min 12 /min [facility] ( [facility] Body height 62 [in_i] 62 [in_i] [facility] ([facility] 5'2" Body weight 181.00 [lb_av] 181.00 [lb_av] [facility] ([facility] [place] body weight 110 [lb_av] 110 [lb_av] [facility] ([facility] Body mass index (BMI) [Ratio] 33.1 kg/m2 33.1 k g/m2 [facility] ([facility] Oxygen saturation in Arterial blood by Pulse oximetry 98 % 98 % [facility] ([facility] Systolic blood pressure 126 mm[Hg] 126 mm[Hg] [facility] ([facility] Diastolic blood pressure 86 mm[Hg] 86 mm[Hg] [facility] ([facility] Body temperature 97.7 [degF] 97.7 [degF] [facility] ([facility] Heart rate 60 /min 60 /min [facility] ([facility] Systolic blood pressure 126 mm[Hg] 126 mm[Hg] [facility] ([facility] Diastolic blood pressure 84 mm[Hg] 84 mm[Hg] [facility] ([facility] Respiratory rate 14 /min 14 /min [facility] ( [facility] Body temperature 98.4 [degF] 98.4 [degF] [facility] ([facility] Heart rate 60 /min 60 /min [facility] ([facility] Body height 62 [in_i] 62 [in_i] [facility] ([facility] 5'2" Body weight 175.00 [lb_av] 175.00 [lb_av] [facility] ([facility] [place] body weight 110 [lb_av] 110 [lb_av] [facility] ([facility] Body mass index (BMI) [Ratio] 32.0 kg/m2 32.0 k g/m2 [facility] ([facility] Oxygen saturation in Arterial blood by Pulse oximetry 96 % 96 % [facility] ([facility] Patient Treatment Plan of Care Planned Activity Planned Date Details Description Data Source (s) Inveltys 1% Ophthalmic Suspension 04/03/2019 12:00:00 AM EDT [facility] ([facility] Herrera [facility]) BromSite 0.075% Ophthalmic Solution 04/03/2019 12:00:00 AM EDT [facility] ([facility] Herrera [facility]) besifloxacin 6 MG/ML Ophthalmic Suspension [Besivance] 04/03/2019 12:00:00 AM EDT [facility] ([facility] Her[facility])
[2021-07-25 09:33] VITALS: BP 175/73
--- OUTSIDE RECORDS SUMMARY | 2021-07-25 12:22 | CCD ---
Author Author [facility] Organization [facility] Address Unknown Phone Unavailable Care Team Providers Care Continuous Improvement Coordinator Name Role Phone Bart MEDELLIN MD Unavailable [...] Unavailable Kiser, L Aline RPA Unavailable Unavailable Ksier, L Aline RPA Unavailable Unavailable Kiser, L Aline RPA Unavailable Unavailable Kiser, L Alnie RPA Unavailable Unavailable Kiser, L Aline RPA [...] is protected by Article 27-F of the [facility] Public Health law. If you continue you may have access to information: Regarding HIV / AIDS; Provided by facilities licensed or operated by the [facility] Office of Mental Health; or Provided by the [facility] Office for People With Developmental Disabilities. If such information is present, then the following [facility] mandated warning applies: This information has been [...] law may result in a fine or retirement sentence or both. A general authorization for the release of medical or other information is NOT sufficient authorization for further disc losure. Allergies and Adverse Reactions Type Description Substance Reaction Status Data Source(s ) Allergy to substance No Known Allergies No known allergies (situation ) [place] ([facility]) Allergy to substance No Known Allergies No known allergies (situation ) [place] ([facility]) Allergy to substance No Known Allergies No known allergies (situation ) [place] ([facility]) Allergy to substance No Known Allergies No known allergies (situation ) [place] ([facility]) Allergy to substance No Known Allergies No known allergies (situation ) [place] ([facility]) Allergy to substance No Known Allergies No known allergies (situation ) [place] ([facility]) Family History Family Member Name Family Member Gender Family Member Status Date o f Status Description Data Source(s) Unknown Male Problem [facility] ([facility], ) () Unknown Unknown Problem [facility] ([facility], [facility]) mother,sister Encounters Encounter Providers Location Date Indications Data Source(s ) Outpatient Attender: CM MEDELLIN MD [facility] 09:45:00 AM EDT [facility] ([facility] Outpatient Attender: CM MEDELLIN MD [place] [facility] 08:30:00 AM EDT [facility] ([facility] Outpatient Attender: CM MEDELLIN MD [place] [facility] 11:45:00 AM EDT [facility] ([facility] Office Visit Attender: Aline Crespo/Marysol/Domitila kothari 05/15/2021 10:45:00 AM EDT [facility] ([facility] Outpatient Attender: CM MEDELLIN MD [place] [facility] 07/2021 11:45:00 AM EDT [facility] ([facility] Outpatient Attender: CM MEDELLIN MD [place] [facility] 02/2021 08:30:00 AM EDT [facility] ([facility] Outpatient Attender: CM MEDELLIN MD [place] [facility] 03:20:00 PM EDT [facility] ([facility] Outpatient Attender: CM MEDELLIN MD [place] [facility] 10:40:00 AM EDT [facility] ([facility] Immunizations Vaccine Date Status Description Data Source(s) New in 2012. IIV4 06/18/2021 10:13:00 AM EDT completed [facility] ([facility] New in 2012. IIV4 06/10/2020 11:06:00 AM EDT completed [facility] ([facility] Medications Medication Brand Name Start Date Product Form Dose Route Admi nistrative Instructions Pharmacy Instructions Status Indications Reaction Description Data Source(s) Prednisone 10 MG Oral Tablet Prednisone 05/21/2021 12:00:00 AM EDT ORAL active [facility] ([facility] Ligation Or Biopsy Temporal Artery 05/08/2021 12:00:00 AM EDT completed [facility] Medication administered onsite Prednisone 20 MG Oral Tablet Prednisone 05/07/2021 12:00:00 AM EDT ORAL completed [facility] ([facility] Prednisone 50 MG Oral Tablet Prednisone 05/01/2021 12:00:00 AM EDT completed [facility] ([facility] Inveltys 1% Ophthalmic Suspension Inveltys 1% Ophthalmic January pension 04/03/2019 12:00:00 AM EDT aborted loteprednol etabonate 10 MG/ML Ophthalmic Suspension [Inveltys] [place] ([facility]) besifloxacin 6 MG/ML Ophthalmic Suspensi on [Besivance] Besivance 0.6% Ophthalmic Suspension Besivance 0.6% Ophthalmic Suspension 04/03/2019 12:00:00 AM EDT aborted besifloxacin 6 MG/ML Ophthalmic Suspension [Besivance] [place] ([facility]) BromSite 0.075% Ophthalmic Solution BromSite 0.075% Ophthalm ic Solution 04/03/2019 12:00:00 AM EDT aborted bromfenac 0.75 MG/ML Ophthalmic Solution [Bromsite] [place] ([facility]) Insurance Providers Payer name Policy type / Coverage type Policy ID Covered libertarian ID Covered libertarian's relationship to valdez Policy Valdez Plan Information [facility] MEDICARE [id number] Cande [id number] Todays Options Medicare F [id number] SELF [id number] MEDICARE [id number] SP [id number] MEDICARE COMPLETE-[facility] O [id number] S [id number] MEDICARE COMPLETE [id number] SP [id number] MEDICARE [id number] SP [id number] A UNITED HEALTHCARE MEDICARE [id number] S [id number] ANSI-Medicare Part B [id number] ANSI-Medicare Part B [id number] ANSI-Medicare Part B [id number] ANSI-Medicare Part B [id number] ANSI-Medicare Part B [id number] ANSI-Medicare Part B [id number] ANSI-Medicare Part B [id number] ANSI-Medicare Part B [id number] MEDICARE COMPLETE [id number] SP [id number] ANSI-Medicare Part B [id number] ANSI-Medicare Part B [id number] ANSI-Medicare Part B [id number] ANSI-Medicare Part B [id number] ANSI-Medicare Part B [id number] ANSI-Medicare Part B [id number] ANSI-Medicare Part B [id number] ANSI-Medicare Part B [id number] Unitedhealthcare Medicare Commercial [id number] Self [id number] Medicare Natl Gov't Servi Medicare Primary [id number] Self [id number] TODAYS OPTIONS [id number] SP [id number] MEDICARE BLUE PPO 306 [id number] SP [id number] [employer] BCBS P [id number] S [id number] MEDICARE BLUE PPO 306 [id number] SP [id number] BC/BS OF [place] P [id number] S [id number] [place] [id number] SP [id number] MEDICARE COMPLETE [id number] SP [id number] Problems, Conditions, and Diagnoses Code Display Name Description Problem Type Effective Dates Data Source(s) 379.21 Vitreous Disorders Degeneration Vitreous Disorders Deg eneration Problem 06/27/2020 12:00:00 AM EDT [place] ([facility]) V43.1 Pseudophakia Pseudophakia Problem 06/27/2020 12:00:00 A M EDT [place] ([facility]) 379.21 Vitreous Disorders Degeneration Vitreous Disorders Deg eneration Problem 06/27/2020 12:00:00 AM EDT [place] ([facility]) V43.1 Pseudophakia Pseudophakia Problem 06/27/2020 12:00:00 A M EDT [place] ([facility]) 379.21 Vitreous Disorders Degeneration Vitreous Disorders Deg eneration Problem 06/27/2020 12:00:00 AM EDT [place] ([facility]) V43.1 Pseudophakia Pseudophakia Problem 06/27/2020 12:00:00 A M EDT [place] ([facility]) 379.21 Vitreous Disorders Degeneration Vitreous Disorders Deg eneration Problem 06/27/2020 12:00:00 AM EDT [place] ([facility]) V43.1 Pseudophakia Pseudophakia Problem 06/27/2020 12:00:00 A M EDT [place] ([facility]) 379.21 Vitreous Disorders Degeneration Vitreous Disorders Deg eneration Problem 06/27/2020 12:00:00 AM EDT [place] ([facility]) V43.1 Pseudophakia Pseudophakia Problem 06/27/2020 12:00:00 A M EDT [place] ([facility]) 366.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 Senile Nuclear Proble m 02/17/2019 12:00:00 AM EDT - 06/27/2020 12:00:00 AM EDT [place] ([facility]) 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 T ype 2 Diabetes with Diabetic Cataract Problem 02/17/2019 12:00:00 AM EDT - 06/27/2020 12:00:00 AM EDT [place] ([facility]) 366.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 Senile Nuclear Proble m 02/17/2019 12:00:00 AM EDT - 06/27/2020 12:00:00 AM EDT [place] ([facility]) 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 T ype 2 Diabetes with Diabetic Cataract Problem 02/17/2019 12:00:00 AM EDT - 06/27/2020 12:00:00 AM EDT [facility] ([facility]) 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 T ype 2 Diabetes with Diabetic Cataract Problem 02/17/2019 12:00:00 AM EDT - 06/27/2020 12:00:00 AM EDT [place] ([facility]) 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 T ype 2 Diabetes with Diabetic Cataract Problem 02/17/2019 12:00:00 AM EDT - 06/27/2020 12:00:00 AM EDT [place] ([facility]) Surgeries/Procedures Procedure Description Date Indications Data Source(s) OFFICE OUTPATIENT VISIT 25 MINUTES 07/22/2021 12:00:00 AM EDT [facility] ([facility] OFFICE OUTPATIENT VISIT 25 MINUTES 06/18/2021 12:00:00 AM EDT [facility] ([facility] OFFICE OUTPATIENT VISIT 25 MINUTES 05/21/2021 12:00:00 AM EDT [facility] ([facility] Ligation Or Biopsy Temporal Artery 05/08/2021 12:00:00 AM EDT [facility] ([facility], ) OFFICE OUTPATIENT VISIT 25 MINUTES 05/07/2021 [...] 12:00:00 AM EDT [place] ([facility]) Extracapsular extraction of lens (procedure) History o f extracapsular cataract extraction PCIOL OD ~PCIOL OS 04/10/[address] Marquez 06/27/2020 12:00:00 AM EDT [place] ([facility]) Extracapsular extraction of lens (procedure) History o f extracapsular cataract extraction PCIOL OD 06/27/2020 12:00:00 AM EDT [place] ([facility]) Surgical / procedural history Quad Hear t Bypass 2007, Sx on broken arm 2016, Knee replacement both, Gallbladder removal, Hysterectomy, colonoscopy 2014 Surgical / procedural history Quad Heart Bypass 2007, Sx on broken arm 2016, Knee replacement both, Gallbladder removal, Hysterectomy, colonoscopy 201406/27/2020 12:00:00 AM EDT [place] ([facility]on [facility]) Extracapsular extraction of lens (procedure) History o f extracapsular cataract extraction PCIOL OD 06/27/2020 12:00:00 AM EDT [place] ([facility]) Extracapsular extraction of lens (procedure) History o f extracapsular cataract extraction PCIOL OD 06/27/2020 12:00:00 AM EDT [place] ([facility]) Results ID Date Data Source [id number] 07/22/2021 09:48:00 AM EDT [facility] ([facility] Name Value Range [...] [facility] Na 142 mmol/L 136-145 [facility] ([facility] CL 109.7 mmol/L 98.0-107.0 Above high normal MEDEN T ([facility] K 4.0 mmol/L 3.5-5.1 [facility] ([facility] Co2 20.4 mmol/L 22.0-29.0 Below low normal [facility] ([facility] CA 9.5 mg/dL 8.6-10.2 [facility] TP 5.4 g/dL 6.6-8.7 Below low normal [facility] ( [facility] Alb 3.7 g/dL 3.4-4.8 [facility] ([facility] Globulin 1.7 CALC [facility] A/G Ratio 2.2 CALC [...] [facility] eGFR 50 # [facility] ( [facility] CKD-EPI eGFR Non-Afr. Indian 44 # [facility] ([facility] CKD-EPI ID Date Data Source [id number] 07/22/2021 09:48:00 AM EDT [facility] ([facility] Name Value Range Interpretation Code Description Data Megan rce(s) Supporting Document(s) Hemoglobin A1c/Hemoglobin.total in Blood 8.2 % 4.8-5.6 Above high normal [facility] ([facility] <content>Prediabetes: 5.7 - 6.4</content >
<content>Diabetes: >6.4</content>
<content>Glycemic control for adults with diabetes: <7.0</content>
<content></content> ID Date Data Source [id number] 07/22/2021 09:48:00 AM EDT [facility] ([facility] Name Value Range Interpretation Code Description Data Megan rce(s) Supporting Document(s) Erythrocyte sedimentation rate by Westergren method 11 mm/hr 0-40 [facility] ([facility] ID Date Data Source [id number] 07/22/2021 09:48:00 AM EDT [facility] ([facility] Name Value Range Interpretation Code Description Data Megan rce(s) Supporting Document(s) Urate [Mass/volume] in Serum or Plasma 5.8 mg/dL 2.4-5.7 Above hi gh normal [facility] ([facility] CHRONIC KIDNEY DISEASE STAGING [...] 2-19 YEARS EXCLUSIVE. ID Date Data Source [id number] 07/22/2021 09:48:00 AM EDT [facility] ([facility] Name Value Range Interpretation Code Description Data Megan rce(s) Supporting Document(s) Chol 181 mg/dL 0-200 [facility] ([facility] CHRONIC KIDNEY DISEASE [...] YEARS EXCLUSIVE. Trig 158 mg/dL 40-200 [facility] ([facility] CHRONIC KIDNEY DISEASE [...] YEARS EXCLUSIVE. Cho/HDL Ratio 3.9 CALC [facility] ([facility] CHRONIC KIDNEY DISEASE STAGING [...] 2-19 YEARS EXCLUSIVE. ID Date Data Source [id number] 06/18/2021 08:58:00 AM EDT [place] ([facility] Name Value Range Interpretation Code Description Data Megan rce(s) Supporting Document(s) Erythrocyte sedimentation rate by Westergren method 14 0-20 [facility] ([facility] ID Date Data Source [id number] 05/21/2021 01:19:00 PM EDT [facility] ([facility] Name Value Range Interpretation Code Description Data Megan rce(s) Supporting Document(s) Erythrocyte sedimentation rate by Westergren method 14 0-20 [facility] ([facility] ID Date Data Source [id number] 05/08/2021 04:00:00 PM EDT [facility] ([facility], ) Name Value Range Interpretation Code Description Data Megan rce(s) Supporting Document(s) Surgical pathology study Laboratory test result [facility] FINAL DIAGNOSIS Temporal artery, right, biopsy: Medium [...] MD 05/12/2021 1028 ID Date Data Source [id number] 05/07/2021 11:54:00 AM EDT [facility] ([facility] Name Value Range Interpretation Code Description Data Megan rce(s) Supporting Document(s) Erythrocyte sedimentation rate by Westergren method 25 0- 20 Above high normal [facility] ([facility] ID Date Data Source [id number] 05/01/2021 03:36:00 PM EDT [facility] ([facility] Name Value Range Interpretation Code Description Data Megan rce(s) Supporting Document(s) Laboratory test finding (navigational concept) 39.0 % 3 8.0-51.0 Normal (applies to non-numeric results) [facility] ([facility] Laboratory test finding (navigational concept) 107 mg/dL 7 0-105 Above high normal [facility] ([facility] ) Laboratory test finding (navigational concept) 141 meq/L 1 36-145 Normal (applies to non-numeric results) [facility] ([facility] Laboratory test finding (navigational concept) 4.4 meq/L 3 .5-5.1 Normal (applies to non-numeric results) [facility] ([facility] Laboratory test finding (navigational concept) 4.8 mg/dL 4 .5-5.3 Normal (applies to non-numeric results) [facility] ([facility] Laboratory test finding (navigational concept) 106 meq/L 9 8-109 Normal (applies to non-numeric results) [facility] Laboratory test finding (navigational concept) 24.0 MM/L 2 3.0-27.0 Normal (applies to non-numeric results) [facility] ([facility] Laboratory test finding (navigational concept) 32 mg/dL 8-26 Above high normal [facility] ([facility] Laboratory test finding (navigational concept) 1.3 mg/dL 0 .6-1.3 Normal (applies to non-numeric results) [facility] ([facility] ID Date Data Source [id number] 05/01/2021 03:20:00 PM EDT [facility] ([facility] Name Value Range Interpretation Code Description Data Megan rce(s) Supporting Document(s) C reactive protein [Mass/volume] in Serum or Plasma by High sensitivity method 0.47 mg/dL 0.00-0.30 Above high normal [facility] ([facility] ID Date Data Source [id number] 05/01/2021 02:52:00 PM EDT [facility] ([facility] Name Value Range Interpretation Code Description Data Megan rce(s) Supporting Document(s) White Blood Count 10.1 10 4.0-10.0 Above high normal [facility] ([facility] Red Blood Count 4.49 10 4.00-5.40 Normal (applies to non-numeric results) [facility] ([facility] Hemoglobin 12.5 g/dL 12.0-15.5 Normal (applies to non-numeric resul ts) [facility] ([facility] Hematocrit 39.0 % 36.0-47.0 Normal (applies to non-numeric resul ts) [facility] ([facility] Mean Corpuscular Volume 86.9 fl 80.0-96.0 Normal ( applies to non-numeric results) [facility] ([facility] ) Mean Corpuscular Hemoglobin 27.8 pg 27.0-33.0 Norm al (applies to non-numeric results) [facility] ([facility] ) Mean Corpuscular HGB Conc 32.1 g/dL 32.0-36.5 Normal (applies to non-numeric results) [facility] ([facility] ) Red Cell Distribution Width 14.4 % 11.5-14.5 Norm al (applies to non-numeric results) [facility] ([facility] ) Platelet Count, Automated 213 10 150-450 Normal (applies to non-numeric results) [facility] ([facility] ) Neutrophils % 65.3 % 36.0-66.0 Normal (applies to non-numeric re sults) [facility] ([facility] Lymph % 25.4 % 24.0-44.0 Normal (applies to non-numeric resul ts) [facility] ([facility] Eos % 1.3 % 0.0-3.0 Normal (applies to non-numeric resul ts) [facility] ([facility] [place] % 7.2 % 2.0-8.0 Normal (applies to [...] re sults) [facility] ([facility] [place] # 0.7 10 0.0-0.8 Normal (applies to non-numeric resul ts) [facility] ([facility] Baso # 0.0 10 0.0-0.2 Normal (applies to non-numeric resul ts) [facility] ([facility] Eos # 0.1 10 0.0-0.5 Normal (applies to non-numeric resul ts) [facility] ([facility] ID Date Data Source [id number] 05/01/2021 02:52:00 PM EDT [facility] ([facility] Name Value Range Interpretation Code Description Data Megan rce(s) Supporting Document(s) Erythrocyte sedimentation rate by Westergren method 49 mm/hr 0-30 Above high normal [facility] ([facility] ) ID Date Data Source [id number] 04/23/2021 03:52:00 PM EDT [facility] ([facility] Name Value Range Interpretation Code Description Data Megan rce(s) Supporting Document(s) Hemoglobin A1c/Hemoglobin.total in Blood 6.7 % 4.8-5.6 Above high normal [facility] ([facility] <content>Prediabetes: 5.7 - 6.4</content >
<content>Diabetes: >6.4</content>
<content>Glycemic control for adults with diabetes: <7.0</content>
<content></content> ID Date Data Source [id number] 04/23/2021 03:52:00 PM EDT [facility] ([facility] Name Value Range Interpretation Code Description Data Megan rce(s) Supporting Document(s) Erythrocyte sedimentation rate by Westergren method 58 mm/hr 0-40 Above high normal [facility] ([facility] ) ID Date Data Source [id number] 04/23/2021 03:52:00 PM EDT [facility] ([facility] Name Value Range Interpretation Code Description Data Megan rce(s) Supporting Document(s) Urate [Mass/volume] in Serum or Plasma 5.3 mg/dL 2.4-5.7 [facility] ([facility] CHRONIC KIDNEY DISEASE STAGING [...] 2-19 YEARS EXCLUSIVE. ID Date Data Source [id number] 04/23/2021 03:52:00 PM EDT [facility] ([facility] Name Value Range Interpretation Code Description Data Megan rce(s) Supporting Document(s) WBC 9.6 10E3/uL 4.1-10.9 [facility] ([facility] CHRONIC KIDNEY DISEASE STAGING PER [...] YEARS EXCLUSIVE. RDW-CV 14.4 % 11.5-14.5 [facility] ([facility] CHRONIC KIDNEY DISEASE [...] YEARS EXCLUSIVE. Neut% 69.8 % 37.0-92.0 [facility] ([facility] CHRONIC KIDNEY DISEASE [...] YEARS EXCLUSIVE. Lym# 2.3 10E3/uL 0.6-4.1 [facility] ([facility] CHRONIC KIDNEY DISEASE STAGING [...] YEARS EXCLUSIVE. MXD% 5.8 % 0.1-24.0 [facility] CHRONIC KIDNEY DISEASE STAGING [...] YEARS EXCLUSIVE. Neut# 6.7 % 2.0-7.8 [facility] CHRONIC KIDNEY DISEASE STAGING [...] YEARS EXCLUSIVE. MXD# 0.6 10E3/uL 0.0-1.8 [facility] ([facility] CHRONIC KIDNEY DISEASE STAGING [...] 2-19 YEARS EXCLUSIVE. MPV 11.4 fL 9.0-13.0 [facility] CHRONIC [...] 2-19 YEARS EXCLUSIVE. ID Date Data Source [id number] 04/23/2021 03:52:00 PM EDT [facility] ([facility] Name Value Range Interpretation Code Description Data Megan rce(s) Supporting Document(s) Chol 281 mg/dL 0-200 Above high normal [facility] ([facility] CHRONIC KIDNEY DISEASE STAGING [...] 332 mg/dL 40-200 Above high normal [facility] ([facility] CHRONIC KIDNEY DISEASE STAGING [...] 43 mg/dL 45-65 Below low normal [facility] ([facility] [facility] ) CHRONIC KIDNEY DISEASE [...] YEARS EXCLUSIVE. Cho/HDL Ratio 6.6 CALC MED[facility] ([facility] CHRONIC KIDNEY DISEASE STAGING [...] 172 Calc 75-129 Above high normal [facility] ([facility] CHRONIC KIDNEY DISEASE STAGING [...] 2-19 YEARS EXCLUSIVE. ID Date Data Source [id number] 04/23/2021 03:52:00 PM EDT [facility] ([facility] Name Value Range Interpretation Code Description Data Megan rce(s) Supporting Document(s) Glu 197 mg/dL 70-110 Above high normal [facility] ([facility] CHRONIC KIDNEY DISEASE STAGING [...] YEARS EXCLUSIVE. Creat 1.0 mg/dL 0.5-1.0 [facility] CHRONIC KIDNEY DISEASE STAGING [...] YEARS EXCLUSIVE. BUN/Creatinine Ratio 25.8 CALC MED[facility] ([facility] CHRONIC KIDNEY DISEASE [...] YEARS EXCLUSIVE. Na 138 mmol/L 136-145 [facility] ([facility] CHRONIC KIDNEY DISEASE STAGING PER [...] YEARS EXCLUSIVE. K 4.1 mmol/L 3.5-5.1 [facility] ([facility] CHRONIC KIDNEY DISEASE [...] YEARS EXCLUSIVE. Ast (Sgot) 13 U/L 0-40 [facility] CHRONIC KIDNEY DISEASE STAGING [...] YEARS EXCLUSIVE. eGFR 63 # [facility] ( [facility] CKD-EPI Anion Gap 23 mmol/L [facility] ([facility] CHRONIC KIDNEY DISEASE STAGING [...] INDIVIDUALA AGED 2-19 YEARS EXCLUSIVE. eGFR Non-Afr. Indian 54 # [facility] ([facility] CKD-EPI ID Date Data Source [id number] 07/09/2020 12:31:00 PM EDT [facility] ([facility] Name Value Range Interpretation Code Description Data Megan rce(s) Supporting Document(s) Thyrotropin [Units/volume] in Serum or Plasma 1.460 uIU/ML 0. 358-3.740 Normal (applies to non-numeric results) [facility] ([facility] Reagin Ab [Presence] in Serum by RPR Laboratory test result Normal (applies to non-numeric results) [facility] ([facility] Cobalamin (Vitamin B12) [Mass/volume] in Serum or Plasma 325 pg/ mL 247-911 Normal (applies to non-numeric results) [facility] ([facility] VITAMIN B12 NORMAL RANGE NORMAL 247 - 911 PG/ML INDETERMINATE 211 - 246 PG/ML DEFICIENT LESS THAN 211 PG/ML ID Date Data Source [id number] 07/09/2020 12:31:00 PM EDT [facility] ([facility] Name Value Range Interpretation Code Description Data Megan rce(s) Supporting Document(s) White Blood Count 11.1 10 4.0-10.0 Above high normal [facility] ([facility] Hematocrit 35.9 % 36.0-47.0 Below low normal [facility] ( [facility] Red Blood Count 4.20 10 4.00-5.40 Normal (applies to non-numeric results) [facility] ([facility] Hemoglobin 11.0 g/dL 12.0-15.5 Below low normal [facility] ( [facility] Mean Corpuscular HGB Conc 30.6 g/dL 32.0-36.5 Below low normal [facility] ([facility] Mean Corpuscular Hemoglobin 26.2 pg 27.0-33.0 Below low normal [facility] ([facility] Red Cell Distribution Width 15.0 % 11.5-14.5 Above high normal [facility] ([facility] Mean Corpuscular Volume 85.5 fl 80.0-96.0 Normal ( applies to non-numeric results) [facility] ([facility] ) Platelet Count, Automated 254 10 150-450 Normal (applies to non-numeric results) [facility] ([facility] ) Nucleated Red Blood Cell % 0.0 % 0-0 Normal (applies to n on-numeric results) [facility] ([facility] ID Date Data Source [id number] 06/10/2020 11:04:00 AM EDT MED[facility] ([employer] [facility] Name Value Range Interpretation Code Description Data Megan rce(s) Supporting Document(s) Hemoglobin A1c/Hemoglobin.total in Blood 5.8 % 4.8-5.6 Above high normal [facility] ([facility] <content>Prediabetes: 5.7 - 6.4</content >
<content>Diabetes: >6.4</content>
<content>Glycemic control for adults with diabetes: <7.0</content>
<content></content> ID Date Data Source [id number] 06/10/2020 11:03:00 AM EDT MEDENT ([facility] [employer] [facility] Name Value Range Interpretation Code Description Data Megan rce(s) Supporting Document(s) Alb 150 mg/L [facility] ([facility] A/C Ratio Laboratory test result Abnormal (applies to non -numeric results) [facility] ([facility] Creatinine, Urine 200 mg/dL 10-300 [facility] ([facility] ID Date Data Source [id number] 06/10/2020 11:02:00 AM EDT [facility] ([facility] [employer] [facility] Name Value Range Interpretation Code Description Data Megan rce(s) Supporting Document(s) Urate [Mass/volume] in Serum or Plasma 5.9 mg/dL 2.4-5.7 Above hi gh normal [facility] ([facility] CLASSIFICATION CHOLESTEROL FO R [...] HCT IS 5% LESS SOURCE FOR DATA: [employer] 1800 OPERATION MANUAL( AUTOMATED BLOOD COUNTS AND DIFF.) APPENDIX B-3 ID Date Data Source [id number] 06/10/2020 11:02:00 AM EDT [facility] ([facility] Name [...] DIFF.) APPENDIX B-3 Cho/HDL Ratio 4.2 Calc [facility] ([facility] CLASSIFICATION CHOLESTEROL FO [...] HCT IS 5% LESS SOURCE FOR DATA: [facility] [employer] 1800 OPERATION MANUAL( AUTOMATED BLOOD COUNTS AND DIFF.) APPENDIX B-3 Cholesterol in HDL [Mass/volume] in Serum or Plasma 43 mg/dL 45-65 Below low normal [facility] ([facility] ) CLASSIFICATION CHOLESTEROL FO [...] HCT IS 5% LESS SOURCE FOR DATA: [employer] 1800 OPERATION MANUAL( AUTOMATED BLOOD COUNTS AND DIFF.) APPENDIX B-3 LDL_C 104 Calc 75-129 [facility] CLASSIFICATION CHOLESTEROL FO [...] HCT IS 5% LESS SOURCE FOR DATA: [employer] 1800 OPERATION MANUAL( AUTOMATED BLOOD COUNTS AND DIFF.) APPENDIX B-3 ID Date Data Source [id number] 06/10/2020 11:02:00 AM EDT [facility] ([facility] Name Value Range Interpretation Code Description Data Megan rce(s) Supporting Document(s) Glu 103 mg/dL 70-110 [facility] ([facility] CLASSIFICATION CHOLESTEROL FO [...] HCT IS 5% LESS SOURCE FOR DATA: [facility] [employer] 1800 OPERATION MANUAL( AUTOMATED BLOOD COUNTS AND DIFF.) APPENDIX B-3 BUN/Creatinine Ratio 21.0 CALC [facility] ([facility] CLASSIFICATION CHOLESTEROL FO [...] HCT IS 5% LESS SOURCE FOR DATA: [employer] 1800 OPERATION MANUAL( AUTOMATED BLOOD COUNTS AND DIFF.) APPENDIX B-3 BUN 19 mg/dL 8-23 [facility] CLASSIFICATION CHOLESTEROL FO [...] DIFF.) APPENDIX B-3 Creat 0.9 mg/dL 0.5-1.0 [facility] CLASSIFICATION CHOLESTEROL FO [...] HCT IS 5% LESS SOURCE FOR DATA: [employer] 1800 OPERATION MANUAL( AUTOMATED BLOOD COUNTS AND DIFF.) APPENDIX B-3 CL 103.2 mmol/L 98.0-107.0 [facility] ([facility] CLASSIFICATION CHOLESTEROL FO [...] HCT IS 5% LESS SOURCE FOR DATA: [employer] 1800 OPERATION MANUAL( AUTOMATED BLOOD COUNTS AND DIFF.) APPENDIX B-3 Na 141 mmol/L 136-145 [facility] CLASSIFICATION CHOLESTEROL FO R [...] APPENDIX B-3 K 4.3 mmol/L 3.5-5.1 [facility] ([facility] CLASSIFICATION CHOLESTEROL FO R ADULTS [...] 5% LESS SOURCE FOR DATA: MARIA TERESA [employer] 1800 OPERATION MANUAL( AUTOMATED BLOOD COUNTS AND [...] HCT IS 5% LESS SOURCE FOR DATA: [employer] 1800 OPERATION MANUAL( AUTOMATED BLOOD COUNTS AND DIFF.) APPENDIX B-3 TP 6.1 g/dL 6.6-8.7 Below low normal [facility] ( [facility] CLASSIFICATION [...] DIFF.) APPENDIX B-3 Co2 24.5 mmol/L 22.0-29.0 [facility] ([facility] CLASSIFICATION CHOLESTEROL FO R ADULTS [...] HCT IS 5% LESS SOURCE FOR DATA: [facility] D[facility] 1800 OPERATION MANUAL( AUTOMATED BLOOD COUNTS AND DIFF.) APPENDIX B-3 Alp 124.1 U/L 35-129 [facility] CLASSIFICATION CHOLESTEROL FO [...] HCT IS 5% LESS SOURCE FOR DATA: [employer] 1800 OPERATION MANUAL( AUTOMATED BLOOD COUNTS AND DIFF.) APPENDIX B-3 Globulin 2.1 CALC [facility] CLASSIFICATION CHOLESTEROL FO R [...] HCT IS 5% LESS SOURCE FOR DATA: [employer]ono 1800 OPERATION MANUAL( AUTOMATED BLOOD COUNTS AND DIFF.) APPENDIX B-3 A/G Ratio 1.9 CALC [facility] ([facility] CLASSIFICATION CHOLESTEROL FO [...] HCT IS 5% LESS SOURCE FOR DATA: [employer]ono 1800 OPERATION MANUAL( AUTOMATED BLOOD COUNTS AND DIFF.) APPENDIX B-3 Alb 4.0 g/dL 3.4-4.8 [facility] ([facility] CLASSIFICATION [...] HCT IS 5% LESS SOURCE FOR DATA: [employer] 1800 OPERATION MANUAL( AUTOMATED BLOOD COUNTS AND DIFF.) APPENDIX B-3 Alt (SGPT) 6 U/L 0-41 [facility] ([facility] CLASSIFICATION CHOLESTEROL FO R ADULTS [...] APPENDIX B-3 Ast (Sgot) 11 U/L 0-40 [facility] ([facility] CLASSIFICATION CHOLESTEROL FO R ADULTS [...] DIFF.) APPENDIX B-3 Tbili 0.25 mg/dL 0.0-1.2 [facility] ([facility] CLASSIFICATION CHOLESTEROL FO R ADULTS [...] HCT IS 5% LESS SOURCE FOR DATA: [facility] D[facility] 1800 OPERATION MANUAL( AUTOMATED BLOOD COUNTS [...] COUNTS AND DIFF.) APPENDIX B-3 eGFR Non-Afr. Indian 62 # [facility] ([facility] [...] HCT IS 5% LESS SOURCE FOR DATA: [employer]ono 1800 OPERATION MANUAL( AUTOMATED BLOOD COUNTS AND DIFF.) APPENDIX B-3 Procedure Social History Code Duration Value Status Description Data Source(s ) Smoking 06/27/2020 03:32:03 PM EDT Never smoked tobacco (findi ng) completed Never smoked tobacco (finding) [facility] ([facility]) Smoking 06/27/2020 03:24:54 PM EDT Never smoked tobacco (findi ng) completed Never smoked tobacco (finding) [facility] ([facility]) Smoking 06/27/2020 03:14:56 PM EDT Never smoked tobacco (findi ng) completed Never smoked tobacco (finding) [facility] ([facility]) Smoking 06/27/2020 03:05:44 PM EDT Never smoked tobacco (findi ng) completed Never smoked tobacco (finding) [facility] ([facility]) Smoking 06/27/2020 02:42:29 PM EDT Never smoked tobacco (findi ng) completed Never smoked tobacco (finding) [facility] ([facility]) Vital Signs ID Date Data Source UNK Name Value Range Interpretation Code Description Data Source(s) Systolic blood pressure 124 mm[Hg] 124 mm[Hg] M EDENT ([facility] Diastolic blood pressure 76 mm[Hg] 76 mm[Hg] [facility] ([facility] Body temperature 97.8 [degF] 97.8 [degF] [facility] ([facility] Heart rate 66 /min 66 /min [facility] ([facility] Respiratory rate 12 /min 12 /min [facility] ( [facility] Body height 62 [in_i] 62 [in_i] [facility] ([facility] 5'2" Body weight 193.00 [lb_av] 193.00 [lb_av] MEDEN T ([facility] [place] body weight 110 [lb_av] 110 [lb_av] MEDEN T ([facility] Body mass index (BMI) [Ratio] 35.3 kg/m2 35.3 k g/m2 [facility] ([facility] Oxygen saturation in Arterial [...] 97 % [facility] ([facility] [place] body weight 110 [lb_av] 110 [lb_av] MEDEN [...] Body height 62 [in_i] 62 [in_i] [facility] ([facility] 5'2" Body weight 189.00 [lb_av] 189.00 [lb_av] MEDEN T ([facility] Heart rate 58 /min 58 /min [facility] ([facility] Systolic blood pressure 122 mm[Hg] 122 mm[Hg] M EDENT ([facility] Diastolic blood pressure 68 mm[Hg] 68 mm[Hg] [facility] ([facility] Body temperature 97.9 [degF] 97.9 [degF] [facility] ([facility] Respiratory rate 14 /min 14 /min [facility] ( [facility] [place] body weight 110 [lb_av] 110 [lb_av] MEDEN T ([facility] Body height 62 [in_i] 62 [in_i] [facility] ([facility] 5'2" Body weight 187.00 [lb_av] 187.00 [lb_av] MEDEN T ([facility] Oxygen saturation in Arterial blood by Pulse oximetry 98 % 98 % [facility] Body mass index (BMI) [Ratio] 34.2 kg/m2 34.2 k g/m2 [facility] Systolic blood pressure 154 mm[Hg] 154 mm[Hg] M [facility]) Heart rate 51 /min 51 /min [facility] ([facility]) Diastolic blood pressure 74 mm[Hg] 74 mm[Hg] [facility] ([facility]) Body height 62 [in_i] 62 [in_i] [facility] ([facility]) 5'2" Body temperature 98.3 [degF] 98.3 [degF] [facility] ([facility]) Body weight 182.00 [lb_av] 182.00 [lb_av] MEDEN T ([facility]) Body mass index (BMI) [Ratio] 33.3 kg/m2 33.3 k g/m2 [facility] ([facility]) Body weight 82.555 kg 82.555 kg [facility] ([facility]) [place] body weight 110 [lb_av] 110 [lb_av] MED[facility] T ([facility]) Body surface area Derived from formula 1.84 m2 1.84 m2 [facility] ([facility]) Systolic blood pressure 164 mm[Hg] 164 mm[Hg] [facility] ([facility]) Diastolic blood pressure 80 mm[Hg] 80 mm[Hg] [facility] ([facility]) Heart rate 65 /min 65 /min [facility] ([facility]) Body temperature 98.4 [degF] 98.4 [degF] [facility] ([facility]) Body height 62 [in_i] 62 [in_i] [facility] ([facility]) 5'2" Body weight 184.12 [lb_av] 184.12 [lb_av] [facility] T ([facility]) Body mass index (BMI) [Ratio] 33.7 kg/m2 33.7 k g/m2 [facility] ([facility]) [place] body weight 110 [lb_av] 110 [lb_av] MED[facility] T ([facility], ) Body weight 83.519 kg 83.519 kg [facility] ([facility], ) Body surface area Derived from formula 1.85 m2 1.85 m2 [facility] Heart rate 56 /min 56 /min [facility] ([facility] Respiratory rate 16 /min 16 /min [facility] ( [facility] Body mass index (BMI) [Ratio] 33.7 kg/m2 33.7 k g/m2 [facility] ([facility] Body height 62 [in_i] 62 [in_i] [facility] ([facility] 5'2" Systolic blood pressure 124 mm[Hg] 124 mm[Hg] M EDENT ([facility] Body weight 184.00 [lb_av] 184.00 [lb_av] MEDEN T ([facility] [place] body weight 110 [lb_av] 110 [lb_av] MED[facility] T ([facility] Oxygen saturation in Arterial blood by Pulse oximetry 96 % 96 % [facility] ([facility] Diastolic blood pressure 78 mm[Hg] 78 mm[Hg] [facility] ([facility] Body temperature 97.5 [degF] 97.5 [degF] [facility] ([facility] Body height 62 [in_i] 62 [in_i] [facility] ([facility] 5'2" Systolic blood pressure 114 mm[Hg] 114 mm[Hg] M EDENT ([facility] Diastolic blood pressure 76 mm[Hg] 76 mm[Hg] [facility] ([facility] Body temperature 97.5 [degF] 97.5 [degF] [facility] ([facility] Heart rate 80 /min 80 /min [facility] ([facility] Respiratory rate 16 /min 16 /min [facility] ( [facility] Body weight 180.00 [lb_av] 180.00 [lb_av] MEDEN T ([facility] [place] body weight 110 [lb_av] 110 [lb_av] MED[facility] T ([facility] Body mass index (BMI) [Ratio] 32.9 kg/m2 32.9 k g/m2 [facility] ([facility] Oxygen saturation in Arterial blood by Pulse oximetry 95 % 95 % [facility] ([facility] Systolic blood pressure 126 mm[Hg] 126 mm[Hg] M EDENT ([facility] Diastolic blood pressure 86 mm[Hg] 86 mm[Hg] [facility] ([facility] Body temperature 97.7 [degF] 97.7 [degF] [facility] ([facility] Heart rate 60 /min 60 /min [facility] ([facility] Respiratory rate 12 /min 12 /min [facility] ( [facility] Body height 62 [in_i] 62 [in_i] [facility] ([facility] 5'2" Body weight 181.00 [lb_av] 181.00 [lb_av] MEDEN T ([facility] [place] body weight 110 [lb_av] 110 [lb_av] MED[facility] T ([facility] Body mass index (BMI) [Ratio] 33.1 kg/m2 33.1 k g/m2 [facility] ([facility] Oxygen saturation in Arterial blood by Pulse oximetry 98 % 98 % [facility] ([facility] Body temperature 98.4 [degF] 98.4 [degF] [facility] ([facility] Systolic blood pressure 126 mm[Hg] 126 mm[Hg] M ED[facility] ([facility] Diastolic blood pressure 84 mm[Hg] 84 mm[Hg] [facility] ([facility] Heart rate 60 /min 60 /min [facility] ([facility] Body height 62 [in_i] 62 [in_i] [facility] ([facility] 5'2" Body weight 175.00 [lb_av] 175.00 [lb_av] MEDEN T ([facility] [place] body weight 110 [lb_av] 110 [lb_av] MEDEN T ([facility] Body mass index (BMI) [Ratio] 32.0 kg/m2 32.0 k g/m2 [facility] ([facility] Respiratory rate 14 /min 14 /min [facility] ( [facility] Oxygen saturation in Arterial blood by Pulse oximetry 96 % 96 % [facility] ([facility] Patient Treatment Plan of Care Planned Activity Planned Date Details Description Data Source (s) Inveltys 1% Ophthalmic Suspension 04/03/2019 12:00:00 AM EDT [facility] ([facility]) BromSite 0.075% Ophthalmic Solution 04/03/2019 12:00:00 AM EDT [facility] ([facility]) besifloxacin 6 MG/ML Ophthalmic Suspension [Besivance] 04/03/2019 12:00:00 AM EDT [facility] ([facility])
[2021-07-25] MEDS ORDERED: NEOSPORIN OINT 0.9 GM PKT TOP ONE (12:35)
[2021-07-25] MEDS ORDERED: LIDOCAINE 1% MDV 20ML VIAL SC ONE (12:35)
--- NOTE | 2021-07-25 13:03 | REP ---
INDICATION: dog bite, r/o fx. COMPARISON: None. TECHNIQUE: Four views FINDINGS: There is an oblique fracture through the proximal diaphysis of the proximal phalanx of the 2nd digit with medial angulation. Advanced degenerative changes are seen throughout the hand and wrist. The bones appear demineralized. IMPRESSION: Acute fracture 2nd digit as described above. <Electronically signed by Daniel Powers > 07/25/21 1300
[2021-07-25] MEDS ORDERED: AUGM875T28 PO ×2 (14:00→16:41)
[2021-07-25] MEDS ORDERED: BACI500O21 TOP ×2 (14:00→16:41)
[2021-07-25] MEDS ORDERED: TRAM50TA2 PO ×2 (14:00→16:41)
[2021-07-25] MEDS ORDERED: ceFAZolin SOD 1 GM in D5W MINI-BAG PLUS 50 ML IV ONE (14:20)
== END 2021-07-25 15:50 | disposition home or self-care (01) ==
LOC: M ED 09:20
DX: S61.452A Open bite of left hand, initial encounter (principal); W54.0XXA Bitten by dog, initial encounter; Y92.009 Unspecified place in unspecified non-institutional (private) residence as the place of occurrence of the external cause; Y93.89 Activity, other specified; Y99.8 Other external cause status; I12.9 Hypertensive chronic kidney disease with stage 1 through stage 4 chronic kidney disease, or unspecified chronic kidney disease; N18.30 Chronic kidney disease, stage 3 unspecified; I25.10 Atherosclerotic heart disease of native coronary artery without angina pectoris; Z79.84 Long term (current) use of oral hypoglycemic drugs; Z79.82 Long term (current) use of aspirin; Z79.899 Other long term (current) drug therapy; Z95.1 Presence of aortocoronary bypass graft
CPT/HCPCS: 12002; 73130; 96374; 99283; J0690

== ENCOUNTER → 2021-09-11 | Outpatient (REF) | payer MEDICARE, MEDICAID ==
[~2021-09-11] MED LIST changes: +AUGM875T28 PO; +BACI500O21 TOP; +TRAM50TA2 PO
[2021-09-11 11:45] LABS: HEMATOCRIT 34.9 % (36.0-47.0); HEMOGLOBIN 11.2 g/dl (12.0-15.5); MEAN CORPUSCULAR HEMOGLOBIN 30.5 pg (27.0-33.0); MEAN CORPUSCULAR HGB CONC 32.1 g/dl (32.0-36.5); MEAN CORPUSCULAR VOLUME 95.1 fl (80.0-96.0); PLATELET COUNT, AUTOMATED 217 10^3/uL (150-450); RED BLOOD COUNT 3.67 10^6/uL (4.00-5.40); WHITE BLOOD COUNT 12.3 10^3/uL (4.0-10.0)
[2021-09-11 12:08] LABS: HEMOGLOBIN A1c 5.9 %
[2021-09-11 12:34] LABS: ALBUMIN 3.3 GM/DL (3.2-5.2); BILIRUBIN,TOTAL 0.7 MG/DL (0.2-1.0); CALCIUM LEVEL 9.3 MG/DL (8.8-10.2); CREATININE FOR GFR 1.28 MG/DL (0.55-1.30); MAGNESIUM LEVEL 2.1 MG/DL (1.8-2.4); POTASSIUM SERUM 4.4 MEQ/L (3.5-5.1); THYROID STIMULATING HORMONE 1.25 uIU/ML (0.358-3.740); TOTAL PROTEIN 6.1 GM/DL (6.4-8.2); URIC ACID 4.9 MG/DL (2.6-6.0)
== END ==
LOC: SKLAB8 07:00
PROVIDERS: ATTEND Internal Medicine
DX: E11.9 Type 2 diabetes mellitus without complications (principal); D64.9 Anemia, unspecified; I10 Essential (primary) hypertension; F03.90 Unspecified dementia, unspecified severity, without behavioral disturbance, psychotic disturbance, mood disturbance, and anxiety; E83.42 Hypomagnesemia; E79.0 Hyperuricemia without signs of inflammatory arthritis and tophaceous disease

== ENCOUNTER → 2021-09-17 | Outpatient (REF) | payer MEDICARE, MEDICAID | LOC: SKLAB8 14:37 | PROVIDERS: ATTEND Internal Medicine | DX: Z20.822 Contact with and (suspected) exposure to COVID-19 (principal) ==

== ENCOUNTER → 2021-09-24 | Outpatient (REF) | payer MEDICARE, MEDICAID | LOC: SKLAB8 13:58 | PROVIDERS: ATTEND Internal Medicine | DX: Z20.822 Contact with and (suspected) exposure to COVID-19 (principal) ==

== ENCOUNTER → 2021-10-01 | Outpatient (REF) | payer MEDICARE, MEDICAID | LOC: SKLAB8 11:37 | PROVIDERS: ATTEND Internal Medicine | DX: Z20.822 Contact with and (suspected) exposure to COVID-19 (principal) ==

== ENCOUNTER → 2021-10-01 | Outpatient (REF) | payer MEDICARE, MEDICAID ==
--- NOTE | 2021-10-01 16:17 | REP ---
INDICATION: WHEEZING COVID POSITIVE. COMPARISON: 08/15/2020 the latest prior also portable FINDINGS: The technique utilized in obtaining the radiograph has magnified the cardiac silhouette and accentuated the interstitial markings. The superior mediastinal structures are midline. The cardiac silhouette is unremarkable in size, shape, and position. The diaphragmatic surfaces of the lungs are regular, and the costophrenic angles are clear. The pulmonary jesus are clear. The imaged osseous structures are intact. IMPRESSION: No evidence of acute disease or significant change compared to the prior exam <Electronically signed by Daniel Powers > 10/01/21 [id number]
== END ==
LOC: SKLAB8 15:06
PROVIDERS: ATTEND Internal Medicine
DX: U07.1 COVID-19 (principal); R06.2 Wheezing

== ENCOUNTER → 2021-10-08 | Outpatient (REF) | payer MEDICARE, MEDICAID | LOC: SKLAB8 13:16 | PROVIDERS: ATTEND Internal Medicine | DX: R06.2 Wheezing (principal); U07.1 COVID-19; I51.7 Cardiomegaly ==

== ENCOUNTER → 2021-10-09 | Outpatient (REF) | payer MEDICARE, MEDICAID ==
[2021-10-09 11:20] LABS: HEMOGLOBIN 10.6 g/dl (12.0-15.5); MEAN CORPUSCULAR HEMOGLOBIN 29.7 pg (27.0-33.0); MEAN CORPUSCULAR HGB CONC 31.2 g/dl (32.0-36.5); MEAN CORPUSCULAR VOLUME 95.2 fl (80.0-96.0); PLATELET COUNT, AUTOMATED 293 10^3/uL (150-450); RED BLOOD COUNT 3.57 10^6/uL (4.00-5.40); WHITE BLOOD COUNT 15.1 10^3/uL (4.0-10.0)
[2021-10-09 11:39] LABS: ALBUMIN 3.4 GM/DL (3.2-5.2); BILIRUBIN,TOTAL 0.3 MG/DL (0.2-1.0); CALCIUM LEVEL 9.8 MG/DL (8.8-10.2); CREATININE FOR GFR 1.51 MG/DL (0.55-1.30); GLOMERULAR FILTRATION RATE 35.6 (>39); POTASSIUM SERUM 4.7 MEQ/L (3.5-5.1); TOTAL PROTEIN 6.3 GM/DL (6.4-8.2)
== END ==
LOC: SKLAB8 07:00
PROVIDERS: ATTEND Internal Medicine
DX: D72.829 Elevated white blood cell count, unspecified (principal)

== ENCOUNTER → 2021-10-20 | Outpatient (REF) | payer MEDICARE, MEDICAID ==
[2021-10-20 07:53] LABS: HEMOGLOBIN 10.2 g/dl (12.0-15.5); MEAN CORPUSCULAR HGB CONC 31.9 g/dl (32.0-36.5); MEAN CORPUSCULAR VOLUME 94.1 fl (80.0-96.0); PLATELET COUNT, AUTOMATED 225 10^3/uL (150-450); WHITE BLOOD COUNT 10.8 10^3/uL (4.0-10.0)
[2021-10-20 08:43] LABS: CALCIUM LEVEL 9.3 MG/DL (8.8-10.2); CREATININE FOR GFR 1.54 MG/DL (0.55-1.30); GLOMERULAR FILTRATION RATE 34.8 (>39); POTASSIUM SERUM 4.9 MEQ/L (3.5-5.1)
== END ==
LOC: SKLAB8 07:00
PROVIDERS: ATTEND Internal Medicine
DX: D72.829 Elevated white blood cell count, unspecified (principal); Z79.899 Other long term (current) drug therapy

== ENCOUNTER → 2021-11-05 | Outpatient (REF) | payer MEDICARE, MEDICAID | LOC: SKLAB8 11:21 | PROVIDERS: ATTEND Internal Medicine | DX: R06.02 Shortness of breath (principal); I51.7 Cardiomegaly; Z95.1 Presence of aortocoronary bypass graft ==

== ENCOUNTER → 2022-03-16 | Outpatient (REF) | payer MEDICARE, MEDICAID ==
[2022-03-16 13:23] LABS: HEMATOCRIT 40.6 % (36.0-47.0); HEMOGLOBIN 12.8 g/dl (12.0-15.5); MEAN CORPUSCULAR HEMOGLOBIN 29.2 pg (27.0-33.0); MEAN CORPUSCULAR HGB CONC 31.5 g/dl (32.0-36.5); MEAN CORPUSCULAR VOLUME 92.5 fl (80.0-96.0); PLATELET COUNT, AUTOMATED 209 10^3/uL (150-450); RED BLOOD COUNT 4.39 10^6/uL (4.00-5.40); WHITE BLOOD COUNT 11.6 10^3/uL (4.0-10.0)
== END ==
LOC: SKLAB8 08:53
PROVIDERS: ATTEND Internal Medicine
DX: D72.829 Elevated white blood cell count, unspecified (principal)

== ENCOUNTER → 2022-10-13 | Outpatient (REF) | payer MEDICARE, MEDICAID ==
[2022-10-13 22:05] LABS: APPEARANCE, URINE MANUAL HAZY (CLEAR); COLOR, URINE MANUAL YELLOW (YELLOW)
[2022-10-13 22:06] LABS: BILIRUBIN, URINE MANUAL NEGATIVE (NEGATIVE); BLOOD URINE MANUAL TRACE (NEGATIVE); GLUCOSE, URINE (UA) MANUAL NEGATIVE (NEGATIVE); KETONE, URINE MANUAL NEGATIVE (NEGATIVE); LEUKOCYTE ESTERASE, URINE MAN POSITIVE (NEGATIVE); NITRITE, URINE MANUAL NEGATIVE (NEGATIVE); PROTEIN, URINE MANUAL 2+ mg/dL (NEGATIVE); SPECIFIC GRAVITY,URINE MANUAL 1.025 (1.002-1.035); UROBILINOGEN, URINE MANUAL NORMAL (NORMAL)
[2022-10-13 22:17] LABS: BACTERIA, URINE LARGE AMOUNT; SQUAMOUS EPITHELIAL CELL URINE SMALL AMOUNT /hpf (SMALL AMT); WBC, URINE 40-50 /hpf (0-3)
== END ==
LOC: SKLAB8 21:00
PROVIDERS: ATTEND Internal Medicine
DX: R41.82 Altered mental status, unspecified (principal)

== ENCOUNTER → 2022-11-03 | Outpatient (REF) | payer MEDICARE, MEDICAID ==
[2022-11-03 07:41] LABS: HEMATOCRIT 36.8 % (36.0-47.0); HEMOGLOBIN 11.6 g/dl (12.0-15.5); MEAN CORPUSCULAR HEMOGLOBIN 29.8 pg (27.0-33.0); MEAN CORPUSCULAR HGB CONC 31.5 g/dl (32.0-36.5); MEAN CORPUSCULAR VOLUME 94.6 fl (80.0-96.0); PLATELET COUNT, AUTOMATED 159 10^3/uL (150-450); RED BLOOD COUNT 3.89 10^6/uL (4.00-5.40); WHITE BLOOD COUNT 7.4 10^3/uL (4.0-10.0)
[2022-11-03 08:06] LABS: CALCIUM LEVEL 9.2 MG/DL (8.3-10.6); CREATININE FOR GFR 1.03 MG/DL (0.55-1.30); GLOMERULAR FILTRATION RATE 55.2 (>39)
[2022-11-03 08:48] LABS: HEMOGLOBIN A1c 5.9 % (4.0-6.0)
== END ==
LOC: SKLAB8 07:00
PROVIDERS: ATTEND Nurse Practitioner
DX: N18.9 Chronic kidney disease, unspecified (principal); Z79.899 Other long term (current) drug therapy

== ENCOUNTER → 2023-02-09 | Outpatient (REF) | payer MEDICARE ==
[~2023-02-09] MED LIST changes: +ENAL1TAB52 PO; -ENAL20TA11 PO
[2023-02-09 09:59] LABS: MEAN CORPUSCULAR HEMOGLOBIN 29.9 pg (27.0-33.0); MEAN CORPUSCULAR HGB CONC 31.6 g/dl (32.0-36.5); MEAN CORPUSCULAR VOLUME 94.5 fl (80.0-96.0); PLATELET COUNT, AUTOMATED 178 10^3/uL (150-450); RED BLOOD COUNT 4.02 10^6/uL (4.00-5.40); WHITE BLOOD COUNT 11.5 10^3/uL (4.0-10.0)
[2023-02-09 10:22] LABS: ALBUMIN 3.2 G/DL (3.2-5.2); BILIRUBIN,TOTAL 0.7 MG/DL (0.3-1.2); GLOMERULAR FILTRATION RATE 57.1 (>39); TOTAL PROTEIN 5.8 G/DL (5.7-8.2)
== END ==
LOC: SKLAB8 06:16
PROVIDERS: ATTEND Internal Medicine
DX: U07.1 COVID-19 (principal); Z79.899 Other long term (current) drug therapy

== ENCOUNTER → 2023-02-18 | Outpatient (REF) | payer MEDICARE | LOC: SKLAB8 07:00 | PROVIDERS: ATTEND Internal Medicine | DX: Z53.8 Procedure and treatment not carried out for other reasons (principal) ==

== ENCOUNTER → 2023-03-11 | Outpatient (REF) | payer MEDICARE ==
[2023-03-11 13:34] LABS: HEMATOCRIT 39.6 % (36.0-47.0); HEMOGLOBIN 12.8 g/dl (12.0-15.5); MEAN CORPUSCULAR HEMOGLOBIN 29.8 pg (27.0-33.0); MEAN CORPUSCULAR HGB CONC 32.3 g/dl (32.0-36.5); MEAN CORPUSCULAR VOLUME 92.1 fl (80.0-96.0); PLATELET COUNT, AUTOMATED 192 10^3/uL (150-450); WHITE BLOOD COUNT 9.1 10^3/uL (4.0-10.0)
[2023-03-11 13:47] LABS: HEMOGLOBIN A1c 5.9 % (4.0-6.0)
[2023-03-11 14:21] LABS: CALCIUM LEVEL 8.6 MG/DL (8.3-10.6); CREATININE FOR GFR 1.2 MG/DL (0.55-1.30); GLOMERULAR FILTRATION RATE 46.3 (>39); PHOSPHORUS LEVEL 5.1 MG/DL (2.4-5.1); POTASSIUM SERUM 4.6 MMOL/L (3.5-5.1); PTH INTACT 85.2 PG/ML (18.5-88.0); TOTAL 25(OH) VITAMIN D 37.9 NG/ML (20.0-100.0)
== END ==
LOC: SKLAB8 07:00
PROVIDERS: ATTEND Internal Medicine
DX: N18.9 Chronic kidney disease, unspecified (principal); Z79.899 Other long term (current) drug therapy

== ENCOUNTER → 2023-06-09 | Outpatient (REF) | payer MEDICARE | LOC: SKLAB8 10:51 | PROVIDERS: ATTEND Internal Medicine | DX: Z01.89 Encounter for other specified special examinations (principal); Z72.51 High risk heterosexual behavior ==

== ENCOUNTER → 2023-06-18 | Outpatient (REF) | payer MEDICARE | LOC: SKLAB8 16:50 | PROVIDERS: ATTEND Internal Medicine | DX: R06.02 Shortness of breath (principal); Z95.1 Presence of aortocoronary bypass graft ==

== ENCOUNTER → 2023-06-21 | Outpatient (REF) | payer MEDICARE ==
[2023-06-21 07:18] LABS: HEMATOCRIT 40.3 % (36.0-47.0); HEMOGLOBIN 13.1 g/dl (12.0-15.5); MEAN CORPUSCULAR HEMOGLOBIN 29.8 pg (27.0-33.0); MEAN CORPUSCULAR HGB CONC 32.5 g/dl (32.0-36.5); MEAN CORPUSCULAR VOLUME 91.8 fl (80.0-96.0); PLATELET COUNT, AUTOMATED 214 10^3/uL (150-450); RED BLOOD COUNT 4.39 10^6/uL (4.00-5.40); WHITE BLOOD COUNT 10.7 10^3/uL (4.0-10.0)
== END ==
LOC: SKLAB8 06-18 16:41
PROVIDERS: ATTEND Internal Medicine
DX: R06.02 Shortness of breath (principal)

== ENCOUNTER → 2023-09-16 | Outpatient (REF) | payer MEDICARE ==
[2023-09-16 09:32] LABS: HEMATOCRIT 37.2 % (36.0-47.0); HEMOGLOBIN 11.8 g/dl (12.0-15.5); MEAN CORPUSCULAR HEMOGLOBIN 29.3 pg (27.0-33.0); MEAN CORPUSCULAR HGB CONC 31.7 g/dl (32.0-36.5); MEAN CORPUSCULAR VOLUME 92.3 fl (80.0-96.0); PLATELET COUNT, AUTOMATED 183 10^3/uL (150-450); RED BLOOD COUNT 4.03 10^6/uL (4.00-5.40); WHITE BLOOD COUNT 7.6 10^3/uL (4.0-10.0)
[2023-09-16 10:02] LABS: CREATININE FOR GFR 1.16 MG/DL (0.55-1.30)
[2023-09-16 10:07] LABS: HEMOGLOBIN A1c 5.6 % (4.0-6.0)
== END ==
LOC: SKLAB8 07:00
PROVIDERS: ATTEND Internal Medicine
DX: N18.9 Chronic kidney disease, unspecified (principal); Z79.899 Other long term (current) drug therapy

== ENCOUNTER 2023-09-27 13:50 | Emergency (ER) | payer MEDICARE ==
[~2023-09-27 13:50] MED LIST changes: -ACET1TAB55 PO; -CIME-49 PO; -GUAI100L6 PO
[2023-09-27] MEDS ORDERED: CIME-49 PO (14:18)
[2023-09-27] MEDS ORDERED: ACET1TAB55 PO (14:18)
[2023-09-27] MEDS ORDERED: GUAI100L6 PO (14:18)
[2023-09-27 16:30] VITALS: BP 120/60; TEMP 98; O2SAT 97
== END 2023-09-27 16:32 | disposition home or self-care (01) ==
LOC: M ED 13:50
DX: G31.1 Senile degeneration of brain, not elsewhere classified (principal); M79.672 Pain in left foot; R05.9 Cough, unspecified; I10 Essential (primary) hypertension; N18.30 Chronic kidney disease, stage 3 unspecified; E78.5 Hyperlipidemia, unspecified; Z79.82 Long term (current) use of aspirin; Z79.1 Long term (current) use of non-steroidal anti-inflammatories (NSAID); Z79.899 Other long term (current) drug therapy

== ENCOUNTER → 2023-09-27 | Outpatient (REF) ==
[~2023-09-27] MED LIST changes: +ACET1TAB55 PO; +CIME-49 PO; +GUAI100L6 PO
[2023-09-27 09:16] LABS: BASO % 0.2 % (0.0-1.0); EOS # 0.2 10^3/uL (0.0-0.5); EOS % 1.2 % (0.0-3.0); HEMATOCRIT 36.5 % (36.0-47.0); HEMOGLOBIN 11.8 g/dl (12.0-15.5); LYMPH # 1.6 10^3/uL (1.5-5.0); LYMPH % 12.3 % (24.0-44.0); MEAN CORPUSCULAR HEMOGLOBIN 29.3 pg (27.0-33.0); MEAN CORPUSCULAR HGB CONC 32.3 g/dl (32.0-36.5); MEAN CORPUSCULAR VOLUME 90.6 fl (80.0-96.0); MONO % 7.6 % (2.0-8.0); NEUTROPHILS % 78.3 % (36.0-66.0); PLATELET COUNT, AUTOMATED 203 10^3/uL (150-450); RED BLOOD COUNT 4.03 10^6/uL (4.00-5.40); WHITE BLOOD COUNT 12.8 10^3/uL (4.0-10.0)
[2023-09-27 09:48] LABS: CALCIUM LEVEL 9.1 MG/DL (8.3-10.6); CREATININE FOR GFR 0.98 MG/DL (0.55-1.30); GLOMERULAR FILTRATION RATE 58.3 (>39); POTASSIUM SERUM 3.8 MMOL/L (3.5-5.1)
== END ==
LOC: SKLAB8 06:38
PROVIDERS: ATTEND Internal Medicine
DX: R05.9 Cough, unspecified (principal)

== ENCOUNTER 2024-02-02 00:20 | Emergency (ER) | payer MEDICARE ==
[~2024-02-02] VITALS: Ht 152.4 cm; Wt 74.4 kg
[~2024-02-02 00:20] MED LIST changes: +ACET1TAB55 PO; +CIME-49 PO; +GUAI100L6 PO
[2024-02-02 01:16] LABS: BASO % 0.3 % (0.0-1.0); EOS # 0.1 10^3/uL (0.0-0.5); EOS % 1.2 % (0.0-3.0); HEMATOCRIT 36.1 % (36.0-47.0); HEMOGLOBIN 11.9 g/dl (12.0-15.5); LYMPH # 2.2 10^3/uL (1.5-5.0); LYMPH % 23.3 % (24.0-44.0); MEAN CORPUSCULAR HEMOGLOBIN 29.8 pg (27.0-33.0); MEAN CORPUSCULAR VOLUME 90.5 fl (80.0-96.0); MONO # 0.7 10^3/uL (0.0-0.8); MONO % 6.9 % (2.0-8.0); NEUTROPHILS # 6.5 10^3/uL (1.5-8.5); NEUTROPHILS % 67.9 % (36.0-66.0); PLATELET COUNT, AUTOMATED 146 10^3/uL (150-450); RED BLOOD COUNT 3.99 10^6/uL (4.00-5.40); WHITE BLOOD COUNT 9.5 10^3/uL (4.0-10.0)
[2024-02-02 01:28] LABS: INR 1.15; PARTIAL THROMBOPLASTIN TIME 24.8 SECONDS (24.8-34.2); PROTHROMBIN TIME 14.3 SECONDS (12.5-14.5)
[2024-02-02 01:37] LABS: ALBUMIN 2.8 G/DL (3.2-5.2); ALKALINE PHOSPHATASE 97 U/L (46-116); ALT/SGPT 17 U/L (7.0-40); AST/SGOT 32 U/L (<34); BILIRUBIN,DIRECT 0.1 MG/DL (<0.4); BILIRUBIN,TOTAL 0.4 MG/DL (0.3-1.2); BLOOD UREA NITROGEN 32 MG/DL (9-23); CALCIUM LEVEL 7.2 MG/DL (8.3-10.6); CARBON DIOXIDE LEVEL 17 MMOL/L (20-31); CHLORIDE LEVEL 116 MMOL/L (98-107); CK-MB VALUE MASS 2.5 NG/ML (<3.6); GLOMERULAR FILTRATION RATE > 60.0 (>39); GLUCOSE, FASTING 85 MG/DL (74-106); POTASSIUM SERUM 4.9 MMOL/L (3.5-5.1); SODIUM LEVEL 141 MMOL/L (136-145); TOTAL PROTEIN 5.1 G/DL (5.7-8.2)
[2024-02-02 01:38] LABS: THYROID STIMULATING HORMONE 2.254 uIU/ML (0.55-4.78)
[2024-02-02 01:39] LABS: FREE T4 0.81 NG/DL (0.89-1.76)
[2024-02-02 01:40] LABS: CPK CREATINE PHOSPHOKINASE 89 U/L (34-145)
[2024-02-02] MEDS: ASPIRIN 81MG CHEW TABLET PO ONE (02:10)
[2024-02-02] MEDS ORDERED: ISOVUE-370 76% 100ML VIAL As Ordered ONE (02:15)
[2024-02-02 02:30] LABS: CK-MB VALUE MASS 2.9 NG/ML (<3.6)
[2024-02-02 02:32] LABS: MB/CK RELATIVE INDEX 3.58 (< OR =4)
[2024-02-02] MEDS ORDERED: FLEEENE12 PR (02:41)
[2024-02-02] MEDS ORDERED: MILK400S19 PO (02:41)
[2024-02-02] MEDS ORDERED: BISA10SU27 PR (02:41)
[2024-02-02] MEDS ORDERED: ATOR1TAB21 PO (02:41)
[2024-02-02 04:01] VITALS: BP 177/75
[2024-02-02 04:05] VITALS: TEMP 97.9; O2SAT 96
== END 2024-02-02 04:29 | disposition home or self-care (01) ==
LOC: M ED 00:20
DX: R07.9 Chest pain, unspecified (principal); N63.0 Unspecified lump in unspecified breast; R00.1 Bradycardia, unspecified; I25.119 Atherosclerotic heart disease of native coronary artery with unspecified angina pectoris; E11.9 Type 2 diabetes mellitus without complications; D64.9 Anemia, unspecified; I10 Essential (primary) hypertension; F03.90 Unspecified dementia, unspecified severity, without behavioral disturbance, psychotic disturbance, mood disturbance, and anxiety; Z79.1 Long term (current) use of non-steroidal anti-inflammatories (NSAID); Z79.899 Other long term (current) drug therapy
CPT/HCPCS: 36415; 71045; 71275; 80048; 80076; 82550; 82553; 83880; 84439; 84443; 84484; 85025; 85610; 85730; 93005; 93041; 94760; 99285; Q9967

== ENCOUNTER → 2024-02-26 | Outpatient (REF) | payer MEDICARE ==
[~2024-02-26] MED LIST changes: +ATOR1TAB21 PO; +BISA10SU27 PR; +FLEEENE12 PR; +MILK400S19 PO
== END ==
LOC: SKLAB8 07:00
PROVIDERS: ATTEND Internal Medicine
DX: M19.041 Primary osteoarthritis, right hand (principal)

== ENCOUNTER → 2024-03-16 | Outpatient (REF) | payer MEDICARE ==
[2024-03-16 12:19] LABS: HEMATOCRIT 37.1 % (36.0-47.0); HEMOGLOBIN 11.8 g/dl (12.0-15.5); MEAN CORPUSCULAR HEMOGLOBIN 29.4 pg (27.0-33.0); MEAN CORPUSCULAR HGB CONC 31.8 g/dl (32.0-36.5); MEAN CORPUSCULAR VOLUME 92.5 fl (80.0-96.0); PLATELET COUNT, AUTOMATED 189 10^3/uL (150-450); RED BLOOD COUNT 4.01 10^6/uL (4.00-5.40); WHITE BLOOD COUNT 9.7 10^3/uL (4.0-10.0)
[2024-03-16 12:32] LABS: HEMOGLOBIN A1c 5.5 % (4.0-6.0)
[2024-03-16 13:00] LABS: CREATININE FOR GFR 1.11 MG/DL (0.55-1.30); GLOMERULAR FILTRATION RATE 50.5 (>39); PHOSPHORUS LEVEL 4.3 MG/DL (2.4-5.1); PTH INTACT 102.6 PG/ML (18.5-88.0); TOTAL 25(OH) VITAMIN D 33.3 NG/ML (20.0-100.0)
== END ==
LOC: SKLAB8 06:40
PROVIDERS: ATTEND Internal Medicine
DX: N18.9 Chronic kidney disease, unspecified (principal); Z79.899 Other long term (current) drug therapy

== ENCOUNTER → 2024-04-12 | Outpatient (CLI) | payer MEDICARE | LOC: M WHC 12:09 | PROVIDERS: ATTEND Nurse Practitioner Adult Health | DX: N64.9 Disorder of breast, unspecified (principal) ==

== ENCOUNTER → 2024-05-18 | Outpatient (CLI) | payer MEDICARE | LOC: M WHCPRO 07:59 | PROVIDERS: ATTEND Nurse Practitioner Adult Health | DX: N63.10 Unspecified lump in the right breast, unspecified quadrant (principal); Z53.9 Procedure and treatment not carried out, unspecified reason ==

== ENCOUNTER → 2024-07-09 | Outpatient (REF) | payer MEDICARE | LOC: SKLAB8 13:22 | PROVIDERS: ATTEND Internal Medicine | DX: M19.042 Primary osteoarthritis, left hand (principal); Z91.81 History of falling ==

== ENCOUNTER → 2024-08-17 | Outpatient (REF) | payer MEDICARE ==
[2024-08-17 22:27] LABS: APPEARANCE, URINE HAZY (CLEAR); BACTERIA, URINE AUTO 3+ (NEGATIVE); BILIRUBIN, URINE AUTO NEGATIVE (NEGATIVE); BLOOD, URINE BLOOD NEGATIVE (NEGATIVE); COLOR, URINE YELLOW (YELLOW); GLUCOSE, URINE (UA) AUTO NEGATIVE (NEGATIVE); KETONE, URINE AUTO NEGATIVE (NEGATIVE); LEUKOCYTE ESTERASE, URINE AUTO 3+ (NEGATIVE); MUCUS, URINE SMALL (NEGATIVE); NITRITE, URINE AUTO NEGATIVE (NEGATIVE); PROTEIN, URINE AUTO 2+ mg/dL (NEGATIVE); RBC, URINE AUTO 0 /HPF (0-3); SPECIFIC GRAVITY URINE AUTO 1.015 (1.002-1.035); SQUAMOUS EPITHELIAL CELL UR AU 0 /HPF (0-6); UROBILINOGEN, URINE AUTO 0.2 mg/dL (0.0-2.0); WBC, URINE AUTO 137 /HPF (0-3)
== END ==
LOC: SKLAB8 21:30
PROVIDERS: ATTEND Internal Medicine
DX: N39.0 Urinary tract infection, site not specified (principal)

== ENCOUNTER → 2024-09-19 | Outpatient (REF) | payer MEDICARE ==
[2024-09-19 08:44] LABS: HEMOGLOBIN 12.5 g/dl (12.0-15.5); MEAN CORPUSCULAR HEMOGLOBIN 29.9 pg (27.0-33.0); MEAN CORPUSCULAR HGB CONC 32.9 g/dl (32.0-36.5); MEAN CORPUSCULAR VOLUME 90.9 fl (80.0-96.0); PLATELET COUNT, AUTOMATED 242 10^3/uL (150-450); RED BLOOD COUNT 4.18 10^6/uL (4.00-5.40)
[2024-09-19 09:03] LABS: HEMOGLOBIN A1c 6.1 % (4.0-6.0)
[2024-09-19 09:14] LABS: CALCIUM LEVEL 9.3 MG/DL (8.3-10.6); CREATININE FOR GFR 1.15 MG/DL (0.55-1.30); GLOMERULAR FILTRATION RATE 48.3 (>32); POTASSIUM SERUM 4.6 MMOL/L (3.5-5.1)
== END ==
LOC: SKLAB8 07:00
PROVIDERS: ATTEND Internal Medicine
DX: N18.9 Chronic kidney disease, unspecified (principal); Z79.899 Other long term (current) drug therapy

== ENCOUNTER 2024-11-14 08:23 | Emergency (ER) | payer MEDICARE ==
[~2024-11-14] VITALS: Ht 152.4 cm; Wt 74.4 kg
[2024-11-14] MEDS ORDERED: METO1TAB32 PO (09:00)
[2024-11-14] MEDS ORDERED: SERT25TA21 PO (09:01)
[2024-11-14] MEDS ORDERED: HOME MED LIST COMPLETE! XX SCH (09:05)
[2024-11-14 12:56] VITALS: BP 154/80; TEMP 98.4; O2SAT 100
== END 2024-11-14 12:58 | disposition home or self-care (01) ==
LOC: M ED 08:23 → EDBD 08:23 → M ED 12:58
DX: Z04.3 Encounter for examination and observation following other accident (principal); W18.30XA Fall on same level, unspecified, initial encounter; I10 Essential (primary) hypertension; E78.5 Hyperlipidemia, unspecified; E11.9 Type 2 diabetes mellitus without complications; I25.119 Atherosclerotic heart disease of native coronary artery with unspecified angina pectoris; Z79.1 Long term (current) use of non-steroidal anti-inflammatories (NSAID); Z79.899 Other long term (current) drug therapy

== ENCOUNTER → 2024-11-17 | Outpatient (REF) | payer MEDICARE ==
[~2024-11-17] MED LIST changes: +METO1TAB32 PO; +SERT25TA21 PO
[2024-11-17 11:03] LABS: HEMATOCRIT 34.8 % (36.0-47.0); HEMOGLOBIN 11.2 g/dl (12.0-15.5); MEAN CORPUSCULAR HEMOGLOBIN 29.9 pg (27.0-33.0); MEAN CORPUSCULAR HGB CONC 32.2 g/dl (32.0-36.5); PLATELET COUNT, AUTOMATED 198 10^3/uL (150-450); RED BLOOD COUNT 3.74 10^6/uL (4.00-5.40); WHITE BLOOD COUNT 12.4 10^3/uL (4.0-10.0)
[2024-11-17 11:29] LABS: CALCIUM LEVEL 9.2 MG/DL (8.3-10.6); CREATININE FOR GFR 1.11 MG/DL (0.55-1.30); GLOMERULAR FILTRATION RATE 50.3 (>32); POTASSIUM SERUM 3.8 MMOL/L (3.5-5.1)
== END ==
LOC: SKLAB8 07:00
PROVIDERS: ATTEND Internal Medicine
DX: R53.83 Other fatigue (principal)

== ENCOUNTER → 2024-11-17 | Outpatient (REF) | payer MEDICARE | LOC: SKLAB8 12:43 | PROVIDERS: ATTEND Internal Medicine | DX: R41.82 Altered mental status, unspecified (principal); Z53.8 Procedure and treatment not carried out for other reasons ==

== ENCOUNTER → 2024-11-20 | Outpatient (REF) | payer MEDICARE | LOC: SKLAB8 07:26 | PROVIDERS: ATTEND Internal Medicine | DX: D72.829 Elevated white blood cell count, unspecified (principal); Z53.9 Procedure and treatment not carried out, unspecified reason ==

== ENCOUNTER 2025-01-31 17:33 | Emergency (ER) | payer MEDICARE ==
[~2025-01-31] VITALS: Ht 152.4 cm; Wt 84.5 kg
[2025-01-31] MEDS: DERMABOND TOPICAL SKIN ADHESIVE TOP ONE (17:50)
[2025-01-31 18:12] VITALS: TEMP 97
[2025-01-31] MEDS ORDERED: AMOX875T2 PO (18:33)
[2025-01-31] MEDS: AUGMENTIN 875 MG TAB PO ONE (18:35)
[2025-01-31] MEDS: ACETAMINOPHEN 325MG/10.15ML UDC PO ONE (18:54)
[2025-01-31] MEDS: BOOSTRIX VACCINE (TETANUS/DIPHTH/ACEL. PERTUSSIS) 0.5ML SYR IM ONE (18:55)
[2025-01-31 19:03] VITALS: O2SAT 100
[2025-01-31 19:27] VITALS: BP 158/78
== END 2025-01-31 19:29 | disposition home or self-care (01) ==
LOC: M ED 17:33
DX: S01.81XA Laceration without foreign body of other part of head, initial encounter (principal); Y92.9 Unspecified place or not applicable; Y93.9 Activity, unspecified; Y99.9 Unspecified external cause status; W19.XXXA Unspecified fall, initial encounter; I25.119 Atherosclerotic heart disease of native coronary artery with unspecified angina pectoris; I10 Essential (primary) hypertension; E11.9 Type 2 diabetes mellitus without complications; Z23 Encounter for immunization; Z79.1 Long term (current) use of non-steroidal anti-inflammatories (NSAID); Z79.2 Long term (current) use of antibiotics; Z79.899 Other long term (current) drug therapy

== ENCOUNTER → 2025-03-29 | Outpatient (REF) | payer MEDICARE ==
[~2025-03-29] MED LIST changes: +AMOX875T2 PO
[2025-03-29 09:16] LABS: CALCIUM LEVEL 9.0 MG/DL (8.3-10.6); CARBON DIOXIDE LEVEL 20.0 MMOL/L (20-31); CHLORIDE LEVEL 111.0 MMOL/L (98-107); CREATININE FOR GFR 1.29 MG/DL (0.55-1.30); GLOMERULAR FILTRATION RATE 42.0 (>32); POTASSIUM SERUM 5.0 MMOL/L (3.5-5.1); SODIUM LEVEL 144.0 MMOL/L (136-145)
== END ==
LOC: SKLAB8 07:00
PROVIDERS: ATTEND Internal Medicine
DX: N18.9 Chronic kidney disease, unspecified (principal)